=== PATIENT | male | born 1945 | race Caucasian/White ===

== ENCOUNTER 2022-02-25 09:56 | Outpatient (CLI) | payer MEDICARE, OTHER, SELFPAY | END 2022-02-25 09:57 | disposition home or self-care (01) | LOC: WOUND 09:59 | PROVIDERS: PCP Family Medicine; Visit Provider Nurse Practitioner Family | DX: L89.323 Pressure ulcer of left buttock, stage 3 (principal); R26.9 Unspecified abnormalities of gait and mobility | CPT/HCPCS: 97597; 99212 ==

== ENCOUNTER 2022-03-04 07:42 | Outpatient (CLI) | payer MEDICARE, OTHER, SELFPAY | END 2022-03-04 07:43 | disposition home or self-care (01) | LOC: WOUND 07:43 | PROVIDERS: PCP Family Medicine; Visit Provider Nurse Practitioner Family | DX: L89.323 Pressure ulcer of left buttock, stage 3 (principal) | CPT/HCPCS: 99213 ==

== ENCOUNTER 2022-03-18 10:06 | Outpatient (CLI) | payer MEDICARE, OTHER, SELFPAY | END 2022-03-18 10:07 | disposition home or self-care (01) | LOC: WOUND 10:06 | PROVIDERS: PCP Family Medicine; Visit Provider Nurse Practitioner Family | DX: L89.323 Pressure ulcer of left buttock, stage 3 (principal) | CPT/HCPCS: 99213 ==

== ENCOUNTER 2022-06-15 09:00 | Outpatient (CLI) | payer MEDICARE, OTHER, SELFPAY | END 2022-06-15 09:01 | disposition home or self-care (01) | LOC: WOUND 09:01 | PROVIDERS: PCP Family Medicine; Visit Provider Nurse Practitioner Family | DX: L89.323 Pressure ulcer of left buttock, stage 3 (principal); L89.312 Pressure ulcer of right buttock, stage 2 | CPT/HCPCS: 99214 ==

== ENCOUNTER 2022-06-22 09:24 | Outpatient (CLI) | payer MEDICARE, OTHER, SELFPAY | END 2022-06-22 09:25 | disposition home or self-care (01) | LOC: WOUND 09:24 | PROVIDERS: PCP Family Medicine; Visit Provider Nurse Practitioner Family | DX: L89.312 Pressure ulcer of right buttock, stage 2 (principal); L89.323 Pressure ulcer of left buttock, stage 3 | CPT/HCPCS: 99213 ==

== ENCOUNTER 2022-06-24 15:02 | Emergency (ER) | payer MEDICARE, OTHER, SELFPAY ==
[2022-06-24] VITALS (14 sets, daily range): BP systolic 138–153; BP diastolic 72–88; PULSE 50–79; RESP 16; TEMP 36.7; O2SAT 93–98
--- NOTE | 2022-06-24 15:31 | ED.GENADULT ---
HPI - General Adult General Time Seen by Provider: 15:31 Date Seen: 06/24/22 Chief complaint: Unspecified Complaint, Adult Stated complaint: Passing Blood,Prior Kidney Stone Probs Time Seen by Provider: 06/24/22 15:30 Source: patient, RN notes reviewed and old records reviewed Mode of arrival: ambulatory Limitations: no limitations History of Present Illness HPI narrative: Sean Recio is a very pleasant 76-year-old gentleman with a history of atrial fibrillation, aortic valve, chronic anticoagulation with an INR of 2.8 earlier today who comes to the emergency room for evaluation regarding hematuria. Patient notes that 2 weeks ago he noticed some blood in his urine and has been on and off since that time. Today however he notes that it is the most of his ever been. He describes little low long gated blood clots that he states almost looks like little warms. He notes no pain with urination and has not had any abdominal discomfort fever or chills or vomiting. Patient notes that he has had a history of kidney stones and had to undergo surgery with stent placement for those stones back in December. He states that all started when he had a pressure sore on his low back and they did a CT scan to ensure that there was no underlying abnormality. At that time they noticed that there were kidney stones in both kidneys and that he had a kidney stone stock in his right ureter. He notes that on December 10 he underwent urological surgery in which they had to break up the stone into multiple pieces. He had a stent placed at that time. He then returned 3 weeks later for further removal of the stones. He thinks that they pulled the stent at that time but is not positive. This was with Dr.Koo borrero power house control room operator in [place] at [facility]. Note that this physician may be a urologist as well. Unfortunately it was noted that the right kidney had lost significant function because of the prolonged blockage of the ureter. Patient denies any shortness of breath or new chest pain. He notes he is slightly lightheaded but does not think this is any worse than normal. He denies chest pain or vomiting. He is able to urinate without difficulty. Occasionally he has had small round clots in his urine. Related Data Home Medications Medication Instructions Recorded Confirmed ascorbic acid (vitamin C) 500 mg 500 mg PO DAILY 06/24/22 06/24/22 capsule calcium carbonate 430 mg calcium 430 mg PO DAILY 06/24/22 06/24/22 (1,000 mg) chewable tablet fluticasone propionate 50 1 spray intranasal DAILY PRN 06/24/22 06/24/22 mcg/actuation nasal spray,suspension (Flonase Allergy Relief) honey 80 % topical gel (MediHoney 1 applic topical DAILY 06/24/22 06/24/22 (honey)) hydrochlorothiazide 12.5 mg tablet 12.5 mg PO DAILY 06/24/22 06/24/22 metoprolol succinate 50 mg 100 mg PO DAILY 06/24/22 06/24/22 tablet,extended release 24 hr omega 3-vsn-mux-fish oil 60 mg-90 1 cap PO DAILY 06/24/22 06/24/22 mg-500 mg capsule (Fish Oil) potassium citrate 10 mEq (1,080 20 meq PO BID 06/24/22 06/24/22 mg) tablet,extended release tamsulosin 0.4 mg capsule 0.4 mg PO DAILY 06/24/22 06/24/22 Previous Rx's Medication Instructions Recorded warfarin 4 mg tablet 4 mg PO QDAY #90 tabs 12/25/21 omeprazole 20 mg capsule,delayed 20 mg PO QDAY #90 caps 02/21/22 release oxybutynin chloride 15 mg 30 mg PO QDAY #180 tabs 02/21/22 tablet,extended release 24 hr warfarin 2 mg tablet See Rx Instructions PO QDAY #100 02/26/22 tabs Allergies Allergy/AdvReac Type Severity Reaction Status Date / Time azithromycin AdvReac Verified 06/24/22 15:28 [From Zithromax Z-Neftaly] Review of Systems Status of ROS: Reports: 10 or more systems reviewed and unremarkable except as noted in History and below Const: Denies: fever or chills ENMT: Denies: throat pain or neck pain Cardio: Denies: chest pain, swelling of feet/ankles or shortness of breath with exertion Resp: Denies: shortness of breath or cough GI: Reports: diarrhea (Loose stools noted for months.); Denies: abdominal pain, nausea or vomiting : Reports: blood in urine; Denies: painful urination, urinary frequency or urinary urgency Musculo: Denies: back pain or neck pain PFSH PFSH Surgical History History of sinus surgery History of thumb surgery Status post aortic valve replacement Status post appendectomy Status post cholecystectomy Status post internal cardiac defibrillator procedure Status post left knee replacement Social History Smoking Status: Never smoker Second hand tobacco smoke exposure: No How often do you have a drink containing alcohol: never AUDIT-C Alcohol total score: 0 Non-prescribed substance use: denies use service: Yes Exam Narrative: Exam Narrative: Patient is alert and oriented. Able to ride good history. Face symmetrical speech is normal. Heart with regular rate and rhythm. Lungs are clear bilaterally. Abdomen is obese soft nontender. Lower extremities without edema. Const: Vital Signs, click to edit/add: Vital Signs - 24 hr 06/24/22 15:26 06/24/22 15:26 06/24/22 15:28 Temperature 98.1 F Pulse Rate 50 L 50 L Pulse Rate [Left P ulse Oximeter] 79 Respiratory Rate 16 Blood Pressure 153/73 H Blood Pressure [Ri ght Upper Arm] 150/88 H Pulse Oximetry 98 94 96 Oxygen Delivery Me thod Room Air 06/24/22 15:30 06/24/22 15:32 06/24/22 16:00 Temperature Pulse Rate 50 L 50 L 50 L Pulse Rate [Left P ulse Oximeter] Respiratory Rate Blood Pressure 148/72 H Blood Pressure [Ri ght Upper Arm] Pulse Oximetry 95 95 93 Oxygen Delivery Me thod 06/24/22 16:02 06/24/22 16:38 06/24/22 17:00 Temperature Pulse Rate 50 L 51 L 50 L Pulse Rate [Left P ulse Oximeter] Respiratory Rate Blood Pressure 143/73 H Blood Pressure [Ri ght Upper Arm] Pulse Oximetry 93 97 96 Oxygen Delivery Me thod 06/24/22 17:02 06/24/22 17:30 06/24/22 17:32 Temperature Pulse Rate 50 L 50 L 50 L Pulse Rate [Left P ulse Oximeter] Respiratory Rate 16 Blood Pressure 138/73 143/79 H Blood Pressure [Ri ght Upper Arm] Pulse Oximetry 96 94 94 Oxygen Delivery Me thod 06/24/22 17:33 06/24/22 18:00 06/24/22 18:01 Temperature Pulse Rate 50 L 50 L 50 L Pulse Rate [Left P ulse Oximeter] Respiratory Rate Blood Pressure 146/83 H Blood Pressure [Ri ght Upper Arm] Pulse Oximetry 94 95 95 Oxygen Delivery Me thod Course Course Hospital Course: At this time will check CBC, basic panel, CRP, urinalysis. Patient will also undergo noncontrast CT of the abdomen and pelvis Reevaluation(s) Reevaluation #1: Patient noted to be doing well. No complaints at this time. Vital Signs Vital signs: Initial Vital Signs Temperature 98.1 F 06/24/22 15:26 Temperature Source Temporal Artery Scan 06/24/22 15:26 Pulse Rate 50 L 06/24/22 15:26 Respiratory Rate 16 06/24/22 15:26 Blood Pressure 150/88 H 06/24/22 15:26 Blood Pressure Mean 108 06/24/22 15:26 Blood Pressure Position Sitting 06/24/22 15:26 Pulse Oximetry 98 06/24/22 15:26 Oxygen Delivery Method 06/24/22 15:26 Vital Signs Temperature 98.1 F 06/24/22 15:26 Pulse Rate 50 L 06/24/22 15:26 Respiratory Rate 16 06/24/22 15:26 Blood Pressure 150/88 H 06/24/22 15:26 Pulse Oximetry 98 06/24/22 15:26 Oxygen Delivery Method 06/24/22 15:26 Temperature 98.1 F 06/24/22 15:26 Pulse Rate 50 L 06/24/22 18:01 Respiratory Rate 16 06/24/22 17:32 Blood Pressure 146/83 H 06/24/22 18:01 Pulse Oximetry 95 06/24/22 18:01 Oxygen Delivery Method 06/24/22 15:26 Medical Decision Making MDM Narrative Medical decision making narrative: 1. Gross hematuria-patient has no evidence of UTI at this time. CT did show significant bilateral renal stones but no ureteral stones. I did speak with [place] urologist in regards to this patient. At this time given hemoglobin normal at 15.3 as well as no evidence of UTI or worsening kidney function they suggest increasing fluids and monitoring. If patient is unable to urinate, has increasing fever or pain would have them return and at that time they are suggesting placement of a [address] [place] catheter for possible irrigation. Patient did have a post void bladder scan that showed 28 mils and so obviously emptying bladder at this time. While patient here 2nd urine collections shows resolution of the blood clot seen previously. Patient is instructed to follow-up with Dr. SANDERS for further workup. 2. Renal insufficiency-creatinine is 1.6 which is improved from previous. Patient is quite happy with that. 3. Chronic anticoagulation-patient had an INR of 2.8 within the last 24 hours. We do not need to repeat that at this time. Will not change Coumadin dosing at this time. 4. Disposition-patient will be discharged home in the care of his . Will return for worsening symptoms and as needed. Medical Records Medical records reviewed: Yes I reviewed the patient's medical records Lab Data Lab results reviewed: Yes I reviewed the patient's lab results Labs: Lab Results 06/24/22 06/24/22 06/24/22 Range/Units 15:21 16:22 16:22 WBC 7.23 (4.50-11.00) K/uL RBC 4.79 (4.30-5.90) m/uL Hgb 15.3 (13.5-17.5) gm/dL Hct 46.1 (37.0-53.0) % MCV 96 (80-100) fL MCH 32 (26-34) pg MCHC 33 (32-36) gm/dL RDW Coeff of Mara 13.5 (11.5-15.5) % Plt Count 163 (140-440) K/uL Neut % (Auto) 49.9 (42.0-72.0) % Lymph % (Auto) 35.5 (20-44) % [place] % (Auto) 10.1 (0.0-11.0) % Eos % (Auto) 4.1 (0.0-7.0) % Baso % (Auto) 0.1 (0.0-3.0) % Neut # (Auto) 3.60 (1.7-7.0) K/uL Lymph # (Auto) 2.57 (0.90-2.90) K/uL [place] # (Auto) 0.70 (0.00-0.90) K/UL Eos # (Auto) 0.30 (0.00-0.50) K/uL Baso # (Auto) 0.01 (0.00-0.30) K/uL Sodium 141 (135-149) mmol/L Potassium 4.1 (3.6-5.1) mmol/L Chloride 109 (96-114) mmol/L Carbon Dioxide 29 (20-32) mmol/L BUN 26 (7-30) mg/dL Creatinine 1.6 H (0.5-1.5) mg/dL Estimated GFR 44 ml/min Glucose 91 (60-115) mg/dL Calcium 9.4 (8.4-10.6) mg/dL C-Reactive Protein < 0.5 L (0.5-1.0) mg/dL Urine Color Red A (Yellow) Urine Appearance Slightly Cloudy A (Clear) Urine pH 6.0 (5.0-8.5) Ur Specific [place] 1.025 (1.000-1.030) Urine Protein 2+ A (Negative) Urine Glucose (UA) Negative (Negative) Urine Ketones Trace A (Negative) Urine Blood 3+ A (Negative) Urine Nitrite Negative (Negative) Urine Bilirubin 1+ A (Negative) Urine Urobilinogen 1.0 (0.2-1.0) Ur Leukocyte Esterase 1+ A (Negative) Urine RBC >100 A (0-2) Urine WBC 5-10 A (0-5) Urine WBC Clumps None (None) Ur Squamous Epith Cells Few (None-Few) Urine Bacteria Few A (None) Imaging Data CT scan - abdomen: Attestation: I have reviewed the pertinent imaging results. My impression: I did not note any ureteral stones. Radiologist's impression: Motion artifact. Scattered subsegmental atelectasis. No focal consolidation. Evaluation of solid organs is limited secondary to lack of IV contrast administration. Liver: Mild geographic steatosis in the right lobe of the liver. No suspicious focal hepatic lesion. Gallbladder and bile ducts: Postcholecystectomy. Pancreas: Fatty atrophy. Spleen: Unremarkable. Adrenal glands: Unremarkable. Kidneys: Several bilateral renal calculi. Largest calculus in the left kidney is in the lower pole, measuring up to 1.0 cm, without significant hydronephrosis. Largest right renal calculus measures up to 0.5 cm in the interpolar region. There is mild right pelviectasis. Retroperitoneum: No lymphadenopathy. Bowel and mesentery: Bowel is not obstructed. Scattered sequelae of prior omental infarcts. Scattered colonic diverticulosis, without evidence of acute diverticulitis. No significant ascites. No pneumoperitoneum. Bladder: Mild circumferential bladder wall thickening, likely secondary to chronic bladder outlet obstruction. Reproductive organs: Significant prostatomegaly. Pelvic lymph nodes: No lymphadenopathy. Vessels: Scattered atherosclerotic calcifications. Abdominal wall: No acute abdominal wall abnormality. Small fat filled umbilical hernia and left inguinal hernia. Subcutaneous soft tissue tract/scarring overlying the left hip, likely secondary to recent left hip arthroplasty. Bones: Multilevel degenerative changes of the spine. No suspicious/aggressive focal osseous lesion. Left hip arthroplasty. Post median sternotomy. IMPRESSION: 1. Several bilateral renal calculi, measuring up to 1.0 cm in the left kidney and 0.5 cm in the right kidney. Mild right pelviectasis. 2. Significant prostatomegaly, correlate with serum PSA. Circumferential bladder wall thickening is likely secondary to chronic bladder outlet obstruction. Discharge Plan Discharge Clinical Impression: Hematuria Patient Disposition: Home, Self-Care Condition: Unchanged Additional Instructions: I have spoken with Urology at [facility] in [place]. They recommended this time allowing you to go home. They wanted to increase fluids to make sure that your urine stays dilute so that you do not have large clots that would block urinary outflow. At this time they do not recommend antibiotics. They do recommend that you follow-up with Dr. Sanders for a gross hematuria workup. (gross is the term used to mean a lot or visualized in medicine). Return to the emergency room if you cannot urinate, you develop a fever or chills or vomiting. Prescriptions: No Action warfarin 4 mg tablet 4 mg PO QDAY Qty: 90 3RF hydrochlorothiazide 12.5 mg tablet 12.5 mg PO DAILY potassium citrate 10 mEq (1,080 mg) tablet extended release 20 meq PO BID Label Comments: TAKE 2 TABLETS BY MOUTH TWICE DAILY WITH MEALS tamsulosin 0.4 mg capsule 0.4 mg PO DAILY Label Comments: TAKE 1 CAPSULE BY MOUTH DAILY metoprolol succinate 50 mg tablet extended release 24 hr 100 mg PO DAILY MediHoney (honey) 80 % gel 1 applic topical DAILY ascorbic acid (vitamin C) 500 mg capsule 500 mg PO DAILY omega 8-tde-nzk-fish oil [Fish Oil] 60-90-500 mg capsule 1 cap PO DAILY calcium carbonate 430 mg calcium (1,000 mg) tablet,chewable 430 mg PO DAILY fluticasone propionate [Flonase Allergy Relief] 50 mcg/actuation spray,suspension 1 spray intranasal DAILY PRN Rx Instructions: administer into each nostril oxybutynin chloride 15 mg tablet extended release 24hr 30 mg PO QDAY Qty: 180 3RF omeprazole 20 mg capsule,delayed release(DR/EC) 20 mg PO QDAY Qty: 90 3RF warfarin 2 mg tablet See Rx Instructions PO QDAY Qty: 100 3RF Rx Instructions: 6 mg QM--, and 8 mg Q --- Follow Up/Referrals: Daniel Molina MD [Primary Care Provider] - Stand Alone Forms: [facility] Info Instructions
[2022-06-24 15:42] LABS: Bilirubin Urine 1+ (Negative); Blood Urine 3+ (Negative); Glucose Urine Negative (Negative); Ketones Urine Trace (Negative); Leukocyte Esterase Urine 1+ (Negative); Nitrite Urine Negative (Negative); Protein Urine 2+ (Negative); Specific Gravity Urine 1.025 (1.000-1.030)
[2022-06-24 15:55] LABS: Appearance Urine Slightly Cloudy (Clear); Color Urine Red (Yellow)
[2022-06-24 16:02] LABS: Bacteria Urine Few; RBC Urine >100 (0-2); Squamous Epithelial Cell Urine Few (None-Few)
--- NOTE | 2022-06-24 16:03 | CRLHL7_ITS ---
For Patients: As a result of the Century Cures Act, medical imaging exams and procedure reports are released immediately into your electronic medical record. You may view this report before your referring provider. If you have questions, please contact your health care provider. INDICATION: Pain, hematuria. TECHNIQUE: CT abdomen and pelvis without contrast. COMPARISON: None available. FINDINGS: Lower chest: Motion artifact. Scattered subsegmental atelectasis. No focal consolidation. Evaluation of solid organs is limited secondary to lack of IV contrast administration. Liver: Mild geographic steatosis in the right lobe of the liver. No suspicious focal hepatic lesion. Gallbladder and bile ducts: Postcholecystectomy. Pancreas: Fatty atrophy. Spleen: Unremarkable. Adrenal glands: Unremarkable. Kidneys: Several bilateral renal calculi. Largest calculus in the left kidney is in the lower pole, measuring up to 1.0 cm, without significant hydronephrosis. Largest right renal calculus measures up to 0.5 cm in the interpolar region. There is mild right pelviectasis. Retroperitoneum: No lymphadenopathy. Bowel and mesentery: Bowel is not obstructed. Scattered sequelae of prior omental infarcts. Scattered colonic diverticulosis, without evidence of acute diverticulitis. No significant ascites. No pneumoperitoneum. Bladder: Mild circumferential bladder wall thickening, likely secondary to chronic bladder outlet obstruction. Reproductive organs: Significant prostatomegaly. Pelvic lymph nodes: No lymphadenopathy. Vessels: Scattered atherosclerotic calcifications. Abdominal wall: No acute abdominal wall abnormality. Small fat filled umbilical hernia and left inguinal hernia. Subcutaneous soft tissue tract/scarring overlying the left hip, likely secondary to recent left hip arthroplasty. Bones: Multilevel degenerative changes of the spine. No suspicious/aggressive focal osseous lesion. Left hip arthroplasty. Post median sternotomy. IMPRESSION: 1. Several bilateral renal calculi, measuring up to 1.0 cm in the left kidney and 0.5 cm in the right kidney. Mild right pelviectasis. 2. Significant prostatomegaly, correlate with serum PSA. Circumferential bladder wall thickening is likely secondary to chronic bladder outlet obstruction. Please note that all CT scans at this facility use dose modulation, iterative reconstruction, and/or weight-based dosing when appropriate to reduce radiation dose to as low as reasonably achievable. Dictated by Jose Galicia MD @ 06/24/2022 5:23:40 PM (Electronically Signed)
[2022-06-24 16:27] LABS: Basophils Absolute Auto 0.01 K/uL (0.00-0.30); Basophils Percent Auto 0.1 % (0.0-3.0); Eosinophils Percent Auto 4.1 % (0.0-7.0); Hematocrit 46.1 % (37.0-53.0); Hemoglobin* 15.3 gm/dL (13.5-17.5); Immature Granulocytes Abs Auto 0.02 K/uL (0.00-0.30); Immature Granulocytes Pct Auto 0.3 %; Lymphocytes Absolute Auto 2.57 K/uL (0.90-2.90); Lymphocytes Percent Auto 35.5 % (20-44); Mean Corpuscular HGB Conc 33 gm/dL (32-36); Mean Corpuscular Hemoglobin 32 pg (26-34); Mean Corpuscular Volume 96 fL (80-100); Monocytes Percent Auto 10.1 % (0.0-11.0); Neutrophils Percent Auto 49.9 % (42.0-72.0); Platelet Count* 163 K/uL (140-440); RDW Coefficient of Variation % 13.5 % (11.5-15.5); Red Blood Count 4.79 m/uL (4.30-5.90); White Blood Count* 7.23 K/uL (4.50-11.00)
[2022-06-24 16:28] LABS: Slide Review Reflex No
[2022-06-24 16:42] LABS: Chloride* 109 mmol/L (96-114); Potassium* 4.1 mmol/L (3.6-5.1); Sodium* 141 mmol/L (135-149)
[2022-06-24 16:45] LABS: Creatinine* 1.6 mg/dL (0.5-1.5); Estimated Glomerular Filt Rate 44 ml/min
[2022-06-24 16:46] LABS: Blood Urea Nitrogen* 26 mg/dL (7-30); Calcium* 9.4 mg/dL (8.4-10.6); Carbon Dioxide* 29 mmol/L (20-32); Glucose* 91 mg/dL (60-115)
[2022-06-24 16:49] LABS: C Reactive Protein* < 0.5 mg/dL (0.5-1.0)
--- NOTE | 2022-06-24 17:07 | ED.NURSE ---
okay with patient having water
== END 2022-06-24 18:50 | disposition home or self-care (01) ==
PROVIDERS: Emergency Provider Family Medicine; PCP Family Medicine
DX: R31.0 Gross hematuria (principal); Z79.01 Long term (current) use of anticoagulants; N28.9 Disorder of kidney and ureter, unspecified
CPT/HCPCS: 36415; 74176; 80048; 81001; 81003; 81015; 85025; 86140; 87086; 99284

== ENCOUNTER 2022-06-30 17:33 | Emergency (ER) | payer MEDICARE, OTHER, SELFPAY ==
[2022-06-30] VITALS (14 sets, daily range): BP systolic 130–147; BP diastolic 68–82; PULSE 50; RESP 16–20; TEMP 36.4; O2SAT 94–97; BMI 40.2
--- NOTE | 2022-06-30 20:23 | CRLHL7_ITS ---
For Patients: As a result of the Century Cures Act, medical imaging exams and procedure reports are released immediately into your electronic medical record. You may view this report before your referring provider. If you have questions, please contact your health care provider. INDICATION: Dizziness. TECHNIQUE: Noncontrast CT images acquired through the brain. COMPARISON: None. FINDINGS: Prominence of the ventricles and sulci compatible with [id number] diffuse cerebral volume loss. No mass effect or midline shift. The schneider-white differentiation is maintained. No acute intracranial hemorrhage or pathologic extra-axial fluid collection. Chronic appearing lacunar infarction in the deep right cerebellar hemisphere (series 3, image 21). Chronic lacunar infarctions or prominent perivascular spaces in the right basal ganglia. Scattered hypoattenuation in the supratentorial white matter, suggestive of mild chronic microvascular ischemic changes. Chronic lacunar infarctions or prominent perivascular spaces in the right basal ganglia. Intracranial atherosclerotic calcifications. The globes are symmetric. The calvarium is intact. Moderate mucosal thickening in the posterior left ethmoid air cells. Trace left mastoid fluid. IMPRESSION: 1. No acute intracranial hemorrhage or mass effect. 2. Chronic appearing lacunar infarction in the deep right cerebellar hemisphere. Chronic lacunar infarctions or prominent perivascular spaces in the right basal ganglia. Please note that all CT scans at this facility use dose modulation, iterative reconstruction, and/or weight-based dosing when appropriate to reduce radiation dose to as low as reasonably achievable. Dictated by Sanket Arzola MD @ 06/30/2022 9:41:16 PM (Electronically Signed)
[2022-06-30] MEDS: SODIUM CHLORIDE 0.9 % (FLUSH) 10 ML SYRINGE 5 ML IVF (20:51)
[2022-06-30 21:00] LABS: Troponin, Point-of-Care* 0.01 ng/ml (0.01-0.04)
[2022-06-30 21:09] LABS: Basophils Absolute Auto 0.02 K/uL (0.00-0.30); Basophils Percent Auto 0.3 % (0.0-3.0); Chloride* 106 mmol/L (96-114); Eosinophils Absolute Auto 0.34 K/uL (0.00-0.50); Eosinophils Percent Auto 4.3 % (0.0-7.0); Hematocrit 46.8 % (37.0-53.0); Hemoglobin* 15.5 gm/dL (13.5-17.5); Immature Granulocytes Abs Auto 0.05 K/uL (0.00-0.30); Immature Granulocytes Pct Auto 0.6 %; Lymphocytes Absolute Auto 2.83 K/uL (0.90-2.90); Lymphocytes Percent Auto 36.1 % (20-44); Mean Corpuscular HGB Conc 33 gm/dL (32-36); Mean Corpuscular Hemoglobin 32 pg (26-34); Mean Corpuscular Volume 97 fL (80-100); Monocytes Percent Auto 11.4 % (0.0-11.0); Neutrophils Percent Auto 47.3 % (42.0-72.0); Platelet Count* 166 K/uL (140-440); RDW Coefficient of Variation % 13.9 % (11.5-15.5); Red Blood Count 4.85 m/uL (4.30-5.90); White Blood Count* 7.83 K/uL (4.50-11.00)
[2022-06-30 21:10] LABS: Potassium* 4.5 mmol/L (3.6-5.1); Slide Review Reflex No; Sodium* 138 mmol/L (135-149)
[2022-06-30 21:11] LABS: INR 2.41 (0.91-1.10); Prothrombin Time 27.5 Seconds
[2022-06-30 21:12] LABS: Creatinine* 1.5 mg/dL (0.5-1.5); Est. Creatinine Clearance* 42.58; Estimated Glomerular Filt Rate 48 ml/min
[2022-06-30 21:13] LABS: Blood Urea Nitrogen* 26 mg/dL (7-30); Calcium* 9.2 mg/dL (8.4-10.6); Carbon Dioxide* 28 mmol/L (20-32); Glucose* 85 mg/dL (60-115)
[2022-06-30 21:25] LABS: Ethanol* < 0.01 % (0.01-0.03)
[2022-06-30 21:28] LABS: PCR FLU A Negative PCR FLU A (Negative); PCR FLU B Negative PCR FLU B (Negative); PCR RSV Negative PCR RSV (Negative)
[2022-06-30 21:43] LABS: SARS PCR* Negative SARS-CoV-2 (Negative)
[2022-06-30 22:19] LABS: Appearance Urine Clear (Clear); Bilirubin Urine Negative (Negative); Blood Urine 3+ (Negative); Color Urine Yellow (Yellow); Glucose Urine Negative (Negative); Ketones Urine Negative (Negative); Leukocyte Esterase Urine 1+ (Negative); Nitrite Urine Negative (Negative); Protein Urine Negative (Negative); Specific Gravity Urine 1.015 (1.000-1.030); Urobilinogen Urine 0.2 (0.2-1.0); pH Urine 6.5 (5.0-8.5)
--- NOTE | 2022-07-01 00:29 | ED.GENADULT ---
HPI - General Adult General Date Seen: 06/30/22 Chief complaint: High Blood Pressure Stated complaint: BP 209/99 Dizzy Time Seen by Provider: 06/30/22 19:52 Source: patient and family Mode of arrival: ambulatory Limitations: no limitations History of Present Illness HPI narrative: patient is a very nice gentleman who presents here with significant other, for evaluation of feeling that he is unsteady, and the room almost spinning around. This occurred earlier tonight, at approximately 4:00 a.m. when he got up when he is walking around with his walker he knew the was almost leaning in listing to 1 side. This also was associated with some ringing in his ears. Denies a severe headache associated with this he did not fall, noted the double vision and no weakness in any the extremities noted. Denies any chest pain shortness of breath or feeling that his heart was racing. He had been suffering from some hematuria on and off in kidney stones, and wondered if was somehow related to this. Did not take any medications and presented here to the hospital for further evaluation. Related Data Home Medications Medication Instructions Recorded Confirmed ascorbic acid (vitamin C) 500 mg 500 mg PO DAILY 06/24/22 06/24/22 capsule calcium carbonate 430 mg calcium 430 mg PO DAILY 06/24/22 06/24/22 (1,000 mg) chewable tablet fluticasone propionate 50 1 spray intranasal DAILY PRN 06/24/22 06/24/22 mcg/actuation nasal spray,suspension (Flonase Allergy Relief) honey 80 % topical gel (MediHoney 1 applic topical DAILY 06/24/22 06/24/22 (honey)) hydrochlorothiazide 12.5 mg tablet 12.5 mg PO DAILY 06/24/22 06/24/22 metoprolol succinate 50 mg 100 mg PO DAILY 06/24/22 06/24/22 tablet,extended release 24 hr omega 3-twl-tny-fish oil 60 mg-90 1 cap PO DAILY 06/24/22 06/24/22 mg-500 mg capsule (Fish Oil) potassium citrate 10 mEq (1,080 20 meq PO BID 06/24/22 06/24/22 mg) tablet,extended release tamsulosin 0.4 mg capsule 0.4 mg PO DAILY 06/24/22 06/24/22 Previous Rx's Medication Instructions Recorded warfarin 4 mg tablet 4 mg PO QDAY #90 tabs 12/25/21 omeprazole 20 mg capsule,delayed 20 mg PO QDAY #90 caps 02/21/22 release oxybutynin chloride 15 mg 30 mg PO QDAY #180 tabs 02/21/22 tablet,extended release 24 hr warfarin 2 mg tablet See Rx Instructions PO QDAY #100 02/26/22 tabs Allergies Allergy/AdvReac Type Severity Reaction Status Date / Time azithromycin AdvReac Verified 06/24/22 15:28 [From Zithromax Z-Neftaly] Review of Systems Status of ROS: Reports: 10 or more systems reviewed and unremarkable except as noted in History and below [facility] Surgical History History of sinus surgery History of thumb surgery Status post aortic valve replacement Status post appendectomy Status post cholecystectomy Status post internal cardiac defibrillator procedure Status post left knee replacement Social History Smoking Status: Never smoker Do you use any of these nicotine containing products: None Second hand tobacco smoke exposure: No How often do you have a drink containing alcohol: never AUDIT-C Alcohol total score: 0 Non-prescribed substance use: denies use service: Yes Exam Narrative: Exam Narrative: Patient is speaking normally, no problem with slurring words, oriented x3. Head eyes ears nose and throat exam show equal pupils, no scleral icterus, extraocular muscles are normal, no facial droop, speech is normal, trachea normal and midline. There is some horizontal nystagmus bilaterally. With 2 beats. TMs bilaterally are normal with approximately 30% occlusion with cerumen. Cranial nerves are otherwise normal and he is able to whistle. Thyroid normal midline palpable not enlarged. Chest shows symmetrical rise bilaterally, normal auscultation with no wheezes, no increased work of breathing, no overt bruising or lesions seen, no tenderness is noted on auscultation. Heart sounds normal with no S3-S4 no murmurs clicks or gallops. Abdomen shows no obvious masses or hepatosplenomegaly, no organomegaly, bowel sounds are normal in all quadrants. No tenderness is noted also in all quadrants. Upper and lower extremities show normal power In his upper extremities, and right lower extremity. He has weakness in his left lower extremity, in hip flexion, but this is from his previous hip replacement he tells me he has not yet recovered., normal range of motion, pulses are normal, sensations normal, fine motor movements are normal, pelvis is stable to rocking. Cervical spine shows normal range of motion, and palpably not tender. Thoracic spine shows normal range of motion, and palpably not tender, lumbar spine shows no tenderness to palpation percussion and is otherwise normal range of motion. Skin shows no rashes, petechiae or eccymosis. Const: Vital Signs, click to edit/add: Vital Signs - 24 hr 06/30/22 18:34 06/30/22 20:14 06/30/22 20:13 Temperature 97.6 F Pulse Rate 50 L Pulse Rate [Pulse Oximeter] 50 L 50 L Respiratory Rate 20 16 Blood Pressure Blood Pressure [Ri ght Upper Arm] 130/73 147/81 H Pulse Oximetry 96 94 94 Oxygen Delivery Me thod Room Air Room Air 06/30/22 20:15 06/30/22 20:30 06/30/22 20:45 Temperature Pulse Rate 50 L 50 L 50 L Pulse Rate [Pulse Oximeter] Respiratory Rate Blood Pressure 137/68 Blood Pressure [Ri ght Upper Arm] Pulse Oximetry 96 97 96 Oxygen Delivery Me thod 06/30/22 20:46 06/30/22 21:05 06/30/22 21:15 Temperature Pulse Rate 50 L 50 L 50 L Pulse Rate [Pulse Oximeter] Respiratory Rate Blood Pressure Blood Pressure [Ri ght Upper Arm] Pulse Oximetry 96 97 95 Oxygen Delivery Me thod 06/30/22 21:29 06/30/22 21:30 06/30/22 21:45 Temperature Pulse Rate 50 L 50 L 50 L Pulse Rate [Pulse Oximeter] Respiratory Rate Blood Pressure 143/82 H Blood Pressure [Ri ght Upper Arm] Pulse Oximetry 97 97 94 Oxygen Delivery Me thod 06/30/22 22:00 06/30/22 22:42 Temperature Pulse Rate 50 L Pulse Rate [Pulse Oximeter] 50 L Respiratory Rate 16 Blood Pressure Blood Pressure [Ri ght Upper Arm] 141/78 H Pulse Oximetry 94 97 Oxygen Delivery Me thod Room Air Documenting provider has reviewed patient's vital signs: yes Course Course Hospital Course: I spoke to the patient is symptoms are most consistent with a peripheral vertigo, his head CT is negative, he is already on anticoagulation for heart valve. He is not a candidate for tPA even if this was a stroke and I do not think this is. I do recommend that he take his nighttime dose of Benadryl, which he takes for sleep aid, we will try some prednisone which often helps this sort of variant. With the ringing in his ears. Avoidance of alcohol, and we went over some warning signs were he should re-presented. I did discuss with him the old stroke as seen on CT, Vital Signs Vital signs: Initial Vital Signs Temperature 97.6 F 06/30/22 18:34 Temperature Source Temporal Artery Scan 06/30/22 18:34 Pulse Rate 50 L 06/30/22 18:34 Respiratory Rate 20 06/30/22 18:34 Blood Pressure 130/73 06/30/22 18:34 Blood Pressure Mean 92 06/30/22 18:34 Blood Pressure Position Supine 06/30/22 18:34 Pulse Oximetry 96 06/30/22 18:34 Oxygen Delivery Method 06/30/22 18:34 Vital Signs Temperature 97.6 F 06/30/22 18:34 Pulse Rate 50 L 06/30/22 18:34 Respiratory Rate 20 06/30/22 18:34 Blood Pressure 130/73 06/30/22 18:34 Pulse Oximetry 96 06/30/22 18:34 Oxygen Delivery Method 06/30/22 18:34 Temperature 97.6 F 06/30/22 18:34 Pulse Rate 50 L 06/30/22 22:42 Respiratory Rate 16 06/30/22 22:42 Blood Pressure 141/78 H 06/30/22 22:42 Pulse Oximetry 97 06/30/22 22:42 Oxygen Delivery Method 06/30/22 22:42 Medical Decision Making MDM Narrative Medical decision making narrative: Life-threatening differential diagnosis considered include, CVA, other differential diagnosis include BPPV, labyrinthitis, Meniere's disease, vestibular neuronitis, migraine, multiple sclerosis, otitis media, viral syndrome as well as other etiologies Medical Records Medical records reviewed: Yes I reviewed the patient's medical records Lab Data Lab results reviewed: Yes I reviewed the patient's lab results Labs: Lab Results 06/30/22 06/30/22 06/30/22 Range/Units 20:25 20:25 20:40 WBC 7.83 (4.50-11.00) K/uL RBC 4.85 (4.30-5.90) m/uL Hgb 15.5 (13.5-17.5) gm/dL Hct 46.8 (37.0-53.0) % MCV 97 (80-100) fL MCH 32 (26-34) pg MCHC 33 (32-36) gm/dL RDW Coeff of Mara 13.9 (11.5-15.5) % Plt Count 166 (140-440) K/uL Neut % (Auto) 47.3 (42.0-72.0) % Lymph % (Auto) 36.1 (20-44) % [place] % (Auto) 11.4 H (0.0-11.0) % Eos % (Auto) 4.3 (0.0-7.0) % Baso % (Auto) 0.3 (0.0-3.0) % Neut # (Auto) 3.70 (1.7-7.0) K/uL Lymph # (Auto) 2.83 (0.90-2.90) K/uL [place] # (Auto) 0.90 (0.00-0.90) K/UL Eos # (Auto) 0.34 (0.00-0.50) K/uL Baso # (Auto) 0.02 (0.00-0.30) K/uL INR (0.91-1.10) Sodium (135-149) mmol/L Potassium (3.6-5.1) mmol/L Chloride (96-114) mmol/L Carbon Dioxide (20-32) mmol/L BUN (7-30) mg/dL Creatinine (0.5-1.5) mg/dL Estimated Creat Clear Estimated GFR ml/min Glucose (60-115) mg/dL Calcium (8.4-10.6) mg/dL Urine Color Yellow (Yellow) Urine Appearance Clear (Clear) Urine pH 6.5 (5.0-8.5) Ur Specific [place] 1.015 (1.000-1.030) Urine Protein Negative (Negative) Urine Glucose (UA) Negative (Negative) Urine Ketones Negative (Negative) Urine Blood 3+ A (Negative) Urine Nitrite Negative (Negative) Urine Bilirubin Negative (Negative) Urine Urobilinogen 0.2 (0.2-1.0) Ur Leukocyte Esterase 1+ A (Negative) Urine RBC 5-10 A (0-2) Urine WBC 5-10 A (0-5) Ur Squamous Epith Cells None (None-Few) Urine Bacteria None (None) Ethyl Alcohol (0.01-0.03) % SARS-CoV-2 (PCR) (Negative) Influenza Type A (PCR) (Negative) Influenza Type B (PCR) (Negative) RSV (PCR) (Negative) POC Troponin I 0.01 (0.01-0.04) ng/ml 06/30/22 06/30/22 06/30/22 Range/Units 20:40 20:40 20:40 WBC (4.50-11.00) K/uL RBC (4.30-5.90) m/uL Hgb (13.5-17.5) gm/dL Hct (37.0-53.0) % MCV (80-100) fL MCH (26-34) pg MCHC (32-36) gm/dL RDW Coeff of Mara (11.5-15.5) % Plt Count (140-440) K/uL Neut % (Auto) (42.0-72.0) % Lymph % (Auto) (20-44) % [place] % (Auto) (0.0-11.0) % Eos % (Auto) (0.0-7.0) % Baso % (Auto) (0.0-3.0) % Neut # (Auto) (1.7-7.0) K/uL Lymph # (Auto) (0.90-2.90) K/uL [place] # (Auto) (0.00-0.90) K/UL Eos # (Auto) (0.00-0.50) K/uL Baso # (Auto) (0.00-0.30) K/uL INR 2.41 H (0.91-1.10) Sodium 138 (135-149) mmol/L Potassium 4.5 (3.6-5.1) mmol/L Chloride 106 (96-114) mmol/L Carbon Dioxide 28 (20-32) mmol/L BUN 26 (7-30) mg/dL Creatinine 1.5 (0.5-1.5) mg/dL Estimated Creat Clear 42.58 Estimated GFR 48 ml/min Glucose 85 (60-115) mg/dL Calcium 9.2 (8.4-10.6) mg/dL Urine Color (Yellow) Urine Appearance (Clear) Urine pH (5.0-8.5) Ur Specific [place] (1.000-1.030) Urine Protein (Negative) Urine Glucose (UA) (Negative) Urine Ketones (Negative) Urine Blood (Negative) Urine Nitrite (Negative) Urine Bilirubin (Negative) Urine Urobilinogen (0.2-1.0) Ur Leukocyte Esterase (Negative) Urine RBC (0-2) Urine WBC (0-5) Ur Squamous Epith Cells (None-Few) Urine Bacteria (None) Ethyl Alcohol < 0.01 L (0.01-0.03) % SARS-CoV-2 (PCR) Negative SARS-CoV-2 (Negative) Influenza Type A (PCR) Negative PCR FLU A (Negative) Influenza Type B (PCR) Negative PCR FLU B (Negative) RSV (PCR) Negative PCR RSV (Negative) POC Troponin I (0.01-0.04) ng/ml Imaging Data CT scan - head: Attestation: I have reviewed the pertinent imaging results. My impression: no acute findings Radiologist's impression: Patient: [facility] [place] Facility:?[facility] Patient ID:?[id number] Site Patient ID:?[id number]. Site :?[id number] Study:?CT Head W/O-06/30/2022 9:05:10 PM Ordering Physician:Aroldo Carter Final Report: INDICATION: Dizziness. TECHNIQUE: Noncontrast CT images acquired through the brain. COMPARISON: None. FINDINGS: Prominence of the ventricles and sulci compatible with [id number] diffuse cerebral volume loss. No mass effect or midline shift. The schneider-white differentiation is maintained. No acute intracranial hemorrhage or pathologic extra-axial fluid collection. Chronic appearing lacunar infarction in the deep right cerebellar hemisphere (series 3, image 21). Chronic lacunar infarctions or prominent perivascular spaces in the right basal ganglia. Scattered hypoattenuation in the supratentorial white matter, suggestive of mild chronic microvascular ischemic changes. Chronic lacunar infarctions or prominent perivascular spaces in the right basal ganglia. Intracranial atherosclerotic calcifications. The globes are symmetric. The calvarium is intact. Moderate mucosal thickening in the posterior left ethmoid air cells. Trace left mastoid fluid. IMPRESSION: 1. No acute intracranial hemorrhage or mass effect. 2. Chronic appearing lacunar infarction in the deep right cerebellar hemisphere. Chronic lacunar infarctions or prominent perivascular spaces in the right basal ganglia. Please note that all CT scans at this facility use dose modulation, iterative reconstruction, and/or weight-based dosing when appropriate to reduce radiation dose to as low as reasonably achievable. Dictated by Sanket Arzola MD @ 06/30/2022 9:41:16 PM (Electronic Signature) ECG Data Attestation: I personally reviewed and interpreted this ECG as follows: Interpretation: paced rhythm, wide QRS consistent with this. Discharge Plan Discharge Clinical Impression: Vertigo Patient Disposition: Home w/ Parent or Adult Condition: Stable Instructions: Vertigo (DC), Dizziness (ED) Additional Instructions: home rest take your Benadryl, Tylenol p.m. we will try some prednisone, to see we can help this vertigo. Please be careful, as falling on the Coumadin can be very problematic. Slow to arise, and avoidance of alcohol is suggested. Prescriptions: No Action warfarin 4 mg tablet 4 mg PO QDAY Qty: 90 3RF hydrochlorothiazide 12.5 mg tablet 12.5 mg PO DAILY potassium citrate 10 mEq (1,080 mg) tablet extended release 20 meq PO BID Label Comments: TAKE 2 TABLETS BY MOUTH TWICE DAILY WITH MEALS tamsulosin 0.4 mg capsule 0.4 mg PO DAILY Label Comments: TAKE 1 CAPSULE BY MOUTH DAILY metoprolol succinate 50 mg tablet extended release 24 hr 100 mg PO DAILY MediHoney (honey) 80 % gel 1 applic topical DAILY ascorbic acid (vitamin C) 500 mg capsule 500 mg PO DAILY omega 7-bdj-uvv-fish oil [Fish Oil] 60-90-500 mg capsule 1 cap PO DAILY calcium carbonate 430 mg calcium (1,000 mg) tablet,chewable 430 mg PO DAILY fluticasone propionate [Flonase Allergy Relief] 50 mcg/actuation spray,suspension 1 spray intranasal DAILY PRN Rx Instructions: administer into each nostril oxybutynin chloride 15 mg tablet extended release 24hr 30 mg PO QDAY Qty: 180 3RF omeprazole 20 mg capsule,delayed release(DR/EC) 20 mg PO QDAY Qty: 90 3RF warfarin 2 mg tablet See Rx Instructions PO QDAY Qty: 100 3RF Rx Instructions: 6 mg QM-W-F, and 8 mg Q T-TH-S-S Follow Up/Referrals: Daniel Molina MD [Primary Care Provider] - Stand Alone Forms: [employer] Info Instructions
== END 2022-06-30 23:03 | disposition home or self-care (01) ==
PROVIDERS: Emergency Provider Family Medicine; PCP Family Medicine
DX: R42 Dizziness and giddiness (principal)
CPT/HCPCS: 36415; 70450; 80048; 81001; 82077; 84484; 85025; 85610; 87086; 87502; 87634; 87635; 93005; 99284; 99285

== ENCOUNTER 2022-07-02 08:25 | Emergency (ER) | payer MEDICARE, OTHER, SELFPAY ==
[2022-07-02 08:30] VITALS: BP 145/71; PULSE 56; TEMP 37; O2SAT 95
[2022-07-02 08:50] VITALS: BP 150/80
--- NOTE | 2022-07-02 09:01 | ED.GENADULT ---
HPI - General Adult General Chief complaint: High Blood Pressure Stated complaint: Elevated BP Time Seen by Provider: 07/02/22 08:28 History of Present Illness HPI narrative: This 76-year-old male comes in with concern about his blood pressure. He states that he woke up this morning and put on his blood pressure cuff while he was yet in his recliner and had a reading of around 230 for systolic value. He does take blood pressure medicines. This was before his medicines were taken. When he arrived here in triage his personal cough had a blood pressure reading of around 200 and the triage reading from our machine was 150. After arrival here he is showing blood pressure readings in the 140-150 range. He has not taken his blood pressure medicines this morning. He does have a cardiac history with open heart surgery. He does not describe any chest pain, lightheadedness, shortness of breath, nausea, vomiting, or diaphoresis. He was here a couple days ago for vertigo symptoms which have since resolved. Related Data Home Medications Medication Instructions Recorded Confirmed ascorbic acid (vitamin C) 500 mg 500 mg PO DAILY 06/24/22 06/24/22 capsule calcium carbonate 430 mg calcium 430 mg PO DAILY 06/24/22 06/24/22 (1,000 mg) chewable tablet fluticasone propionate 50 1 spray intranasal DAILY PRN 06/24/22 06/24/22 mcg/actuation nasal spray,suspension (Flonase Allergy Relief) honey 80 % topical gel (MediHoney 1 applic topical DAILY 06/24/22 06/24/22 (honey)) hydrochlorothiazide 12.5 mg tablet 12.5 mg PO DAILY 06/24/22 06/24/22 metoprolol succinate 50 mg 100 mg PO DAILY 06/24/22 06/24/22 tablet,extended release 24 hr omega 4-anf-eqi-fish oil 60 mg-90 1 cap PO DAILY 06/24/22 06/24/22 mg-500 mg capsule (Fish Oil) potassium citrate 10 mEq (1,080 20 meq PO BID 06/24/22 06/24/22 mg) tablet,extended release tamsulosin 0.4 mg capsule 0.4 mg PO DAILY 06/24/22 06/24/22 Previous Rx's Medication Instructions Recorded warfarin 4 mg tablet 4 mg PO QDAY #90 tabs 12/25/21 omeprazole 20 mg capsule,delayed 20 mg PO QDAY #90 caps 02/21/22 release oxybutynin chloride 15 mg 30 mg PO QDAY #180 tabs 02/21/22 tablet,extended release 24 hr warfarin 2 mg tablet See Rx Instructions PO QDAY #100 02/26/22 tabs Allergies Allergy/AdvReac Type Severity Reaction Status Date / Time azithromycin AdvReac Verified 06/24/22 15:28 [From Zithromax Z-Neftaly] Review of Systems Status of ROS: Reports: 10 or more systems reviewed and unremarkable except as noted in History and below Narrative: Constitutional: No fevers, no weight gain or loss. Eyes: No discharge. No vision changes. HENT: No congestion, no sore throat, no ear pain. Cardiovascular: No chest pain, no palpitations. Respiratory: No shortness of breath, no wheezes, no cough. Gastrointestinal: No abdominal pain, no vomiting, no diarrhea. Genitourinary: No dysuria, no hematuria. Musculoskeletal: Normal range of motion. Skin: No rashes, no pruritis. Neurological: No dizziness, weakness, sensory change, speech change. Endo/Heme/Allergies: No bruising or bleeding. No polydipsia. Pysch: no suicidality, no anxiety, no insomnia. All other systems reviewed and are negative. [facility] History History of sinus surgery History of thumb surgery Status post aortic valve replacement Status post appendectomy Status post cholecystectomy Status post internal cardiac defibrillator procedure Status post left knee replacement Social History Smoking Status: Never smoker Do you use any of these nicotine containing products: None Second hand tobacco smoke exposure: No How often do you have a drink containing alcohol: never AUDIT-C Alcohol total score: 0 Non-prescribed substance use: denies use service: Yes Exam Narrative: Exam Narrative: Constitutional: Well-developed, well-nourished, no acute distress. HEENT: Normocephalic, atraumatic. Neck: Normal range of motion. Nontender. Supple. Heart: Regular. No murmurs. Normal rate. Intact distal pulses. Lungs: Clear to auscultation. No chest discomfort. No wheezes, rhonchi, or rales. Abdomen: Normal bowel sounds. Nontender. No rebound tenderness. Genitalia: Deferred. Back: No midline tenderness. Normal range of motion. Extremities: Normal range of motion. No injury. Skin: Intact. No rash. Warm. No erythema or pallor. Neurologic: No altered sensation. No weakness. Alert and oriented. Psychiatric: No suicidality. No anxiety or depression. No insomnia. Nursing notes and vitals signs are reviewed. Const: Vital Signs, click to edit/add: Vital Signs - 24 hr 07/02/22 08:30 07/02/22 08:50 07/02/22 09:30 Temperature 98.6 F Pulse Rate [Pulse Oximeter] 56 L Blood Pressure [Ri ght Upper Arm] 145/71 H 150/80 H 153/63 H Pulse Oximetry 95 Oxygen Delivery Me thod Room Air Course Vital Signs Vital signs: Initial Vital Signs Temperature 98.6 F 07/02/22 08:30 Temperature Source Temporal Artery Scan 07/02/22 08:30 Pulse Rate 56 L 07/02/22 08:30 Blood Pressure 145/71 H 07/02/22 08:30 Blood Pressure Mean 95 07/02/22 08:30 Blood Pressure Position Sitting 07/02/22 08:30 Pulse Oximetry 95 07/02/22 08:30 Oxygen Delivery Method 07/02/22 08:30 Vital Signs Temperature 98.6 F 07/02/22 08:30 Pulse Rate 56 L 07/02/22 08:30 Blood Pressure 145/71 H 07/02/22 08:30 Pulse Oximetry 95 07/02/22 08:30 Oxygen Delivery Method 07/02/22 08:30 Temperature 98.6 F 07/02/22 08:30 Pulse Rate 56 L 07/02/22 08:30 Blood Pressure 153/63 H 07/02/22 09:30 Pulse Oximetry 95 07/02/22 08:30 Oxygen Delivery Method 07/02/22 08:30 Medical Decision Making MDM Narrative Medical decision making narrative: This patient comes in with concern about elevated blood pressure reading. He is using his own cuff at home that is approaching 20 years old. This is reading 50-70 points higher than the readings we have received here. Additionally he has not taken his blood pressure medicines yet today so his expect his blood pressure to be a bit elevated. Readings here are returning for systolic value of around 140 or 150. I did check labs an EKG and these returned with reassuring findings. I did describe criteria that are involved in diagnosis thing in managing blood pressure. I advised him to follow-up with his primary physician for further management as needed. He should continue his current plan as this seems to be appropriate for him. Lab Data Labs: Lab Results 07/02/22 07/02/22 07/02/22 Range/Units 09:01 09:24 09:24 WBC 9.12 (4.50-11.00) K/uL RBC 4.93 (4.30-5.90) m/uL Hgb 15.6 (13.5-17.5) gm/dL Hct 47.4 (37.0-53.0) % MCV 96 (80-100) fL MCH 32 (26-34) pg MCHC 33 (32-36) gm/dL RDW Coeff of Mara 13.9 (11.5-15.5) % Plt Count 179 (140-440) K/uL Neut % (Auto) 84.6 H (42.0-72.0) % Lymph % (Auto) 11.8 L (20-44) % [place] % (Auto) 3.5 (0.0-11.0) % Eos % (Auto) 0.0 (0.0-7.0) % Baso % (Auto) 0.0 (0.0-3.0) % Neut # (Auto) 7.70 H (1.7-7.0) K/uL Lymph # (Auto) 1.10 (0.90-2.90) K/uL [place] # (Auto) 0.30 (0.00-0.90) K/UL Eos # (Auto) 0.00 (0.00-0.50) K/uL Baso # (Auto) 0.00 (0.00-0.30) K/uL Sodium 138 (135-149) mmol/L Potassium 4.3 (3.6-5.1) mmol/L Chloride 109 (96-114) mmol/L Carbon Dioxide 24 (20-32) mmol/L BUN 26 (7-30) mg/dL Creatinine 1.3 (0.5-1.5) mg/dL Estimated GFR 57 ml/min Glucose 174 H (60-115) mg/dL Calcium 9.8 (8.4-10.6) mg/dL POC Troponin I 0.01 (0.01-0.04) ng/ml ECG Data Attestation: I personally reviewed and interpreted this ECG as follows: Interpretation: Ventricular paced rhythm. Rate is 50 beats per minute. There are no specific ST or T-wave abnormalities. Discharge Plan Discharge Clinical Impression: Elevated blood pressure reading Patient Disposition: Home, Self-Care Condition: Stable Additional Instructions: Continue current plans. Follow up with physicians as scheduled. Check with primary physician for ongoing management of blood pressure medications. Return if worsening. Prescriptions: No Action warfarin 4 mg tablet 4 mg PO QDAY Qty: 90 3RF hydrochlorothiazide 12.5 mg tablet 12.5 mg PO DAILY potassium citrate 10 mEq (1,080 mg) tablet extended release 20 meq PO BID Label Comments: TAKE 2 TABLETS BY MOUTH TWICE DAILY WITH MEALS tamsulosin 0.4 mg capsule 0.4 mg PO DAILY Label Comments: TAKE 1 CAPSULE BY MOUTH DAILY metoprolol succinate 50 mg tablet extended release 24 hr 100 mg PO DAILY MediHoney (honey) 80 % gel 1 applic topical DAILY ascorbic acid (vitamin C) 500 mg capsule 500 mg PO DAILY omega 0-cdo-vjz-fish oil [Fish Oil] 60-90-500 mg capsule 1 cap PO DAILY calcium carbonate 430 mg calcium (1,000 mg) tablet,chewable 430 mg PO DAILY fluticasone propionate [Flonase Allergy Relief] 50 mcg/actuation spray,suspension 1 spray intranasal DAILY PRN Rx Instructions: administer into each nostril oxybutynin chloride 15 mg tablet extended release 24hr 30 mg PO QDAY Qty: 180 3RF omeprazole 20 mg capsule,delayed release(DR/EC) 20 mg PO QDAY Qty: 90 3RF warfarin 2 mg tablet See Rx Instructions PO QDAY Qty: 100 3RF Rx Instructions: 6 mg QM-W-, and 8 mg Q --S- Follow Up/Referrals: Daniel Molina MD [Primary Care Provider] - Stand Alone Forms: Daily[employer] Info Instructions
[2022-07-02 09:30] VITALS: BP 153/63
[2022-07-02 09:35] LABS: Hematocrit 47.4 % (37.0-53.0); Hemoglobin* 15.6 gm/dL (13.5-17.5); Immature Granulocytes Abs Auto 0.01 K/uL (0.00-0.30); Immature Granulocytes Pct Auto 0.1 %; Lymphocytes Percent Auto 11.8 % (20-44); Mean Corpuscular HGB Conc 33 gm/dL (32-36); Mean Corpuscular Hemoglobin 32 pg (26-34); Mean Corpuscular Volume 96 fL (80-100); Monocytes Percent Auto 3.5 % (0.0-11.0); Neutrophils Percent Auto 84.6 % (42.0-72.0); Platelet Count* 179 K/uL (140-440); RDW Coefficient of Variation % 13.9 % (11.5-15.5); Red Blood Count 4.93 m/uL (4.30-5.90); White Blood Count* 9.12 K/uL (4.50-11.00)
[2022-07-02 09:45] LABS: Slide Review Reflex No
[2022-07-02 09:54] LABS: Troponin, Point-of-Care* 0.01 ng/ml (0.01-0.04)
[2022-07-02 09:58] LABS: Chloride* 109 mmol/L (96-114); Potassium* 4.3 mmol/L (3.6-5.1); Sodium* 138 mmol/L (135-149)
[2022-07-02 10:00] LABS: Creatinine* 1.3 mg/dL (0.5-1.5); Estimated Glomerular Filt Rate 57 ml/min
[2022-07-02 10:01] LABS: Blood Urea Nitrogen* 26 mg/dL (7-30); Calcium* 9.8 mg/dL (8.4-10.6); Carbon Dioxide* 24 mmol/L (20-32); Glucose* 174 mg/dL (60-115)
[2022-07-02 10:33] VITALS: PULSE 52; O2SAT 96
== END 2022-07-02 10:39 | disposition home or self-care (01) ==
PROVIDERS: Emergency Provider Emergency Medicine Emergency Medical Services; PCP Family Medicine
DX: R03.0 Elevated blood-pressure reading, without diagnosis of hypertension (principal)
CPT/HCPCS: 36415; 80048; 84484; 85025; 93005; 99284

== ENCOUNTER 2022-11-23 08:39 | Emergency (ER) | payer MEDICARE, OTHER, SELFPAY ==
[2022-11-23 08:44] VITALS: BP 125/68; PULSE 51; RESP 18; TEMP 36.6; O2SAT 92; BMI 41.0
--- NOTE | 2022-11-23 08:57 | ED.MALEGU ---
HPI - Male Genitourinary General Time Seen by Provider: 08:57 Date Seen: 11/23/22 Chief complaint: Urogenital Problems, Male Stated complaint: blood in urine Time Seen by Provider: 11/23/22 08:56 Source: patient, RN notes reviewed and old records reviewed Mode of arrival: ambulatory Limitations: no limitations History of Present Illness HPI Narrative: Sean is a 77-year-old male coming in with complaints of hematuria stemming back from a kidney stone surgery 12/24/2021. He had a 1 cm kidney stone obstructing in the ureter, states that they had to stop the surgery after about 3 hours. He had a stent placed, working with laser to break up the 1 cm stone. He had to wait 3 weeks and then went back to complete the surgery. He states he has heart issues and he became unstable during the 1st surgery. He reports that he has had intermittent hematuria since the surgery. He states he has been to urgent care twice, [facility], here. He states everyone else is always concerned about the level of hematuria but when he gets back to his urologist, he states he rylan borrero just tells him he needs to learn to live with it. He is on anticoagulation with Coumadin, his INR on of last week was 1.9, today is Tuesday. He did increase his Coumadin dosing by 1 mg daily. He has been seen urology at [place]. He is scheduled for blood work, urinalysis and CT imaging this Tuesday for further evaluation and management of his hematuria. He states this morning he got up at about 4:00 a.m. to urinate, the urine was like ksenia blood, that started to happen every 1/2 hour until just before coming here, seems to be clearing. He will passed clots but is not having any inability to urinate. He felt weak this morning. He contacted someone and they advised him to be seen. Have reviewed with patient and his hematuria workup. If he has completed a full formal workup with Urology, his urologist maybe correct that there may be nothing to do. Also reviewed that we worry when the hematuria is causing obstructive symptoms, specifically the inability to urinate. In those situations we would start CBI. I do think we should see where his hemoglobin is, check his INR. We will obtain urinalysis. Does not sound like there is any infective symptomatology with this. He endorses intermittent hematuria since that surgery. In review of his records, did have evaluation in the ER here on 06/24/[address] Did have CT which showed kidney stones, no evidence of infection. Patient was discharged to home, [facility] urology was consulted. Related Data Home Medications Medication Instructions Recorded Confirmed ascorbic acid (vitamin C) 500 mg 500 mg PO DAILY 06/24/22 07/14/22 capsule calcium carbonate 430 mg calcium 430 mg PO DAILY 06/24/22 07/14/22 (1,000 mg) chewable tablet fluticasone propionate 50 1 spray intranasal DAILY PRN 06/24/22 07/14/22 mcg/actuation nasal spray,suspension (Flonase Allergy Relief) honey 80 % topical gel (MediHoney 1 applic topical DAILY 06/24/22 07/14/22 (honey)) hydrochlorothiazide 12.5 mg tablet 12.5 mg PO DAILY 06/24/22 07/14/22 metoprolol succinate 50 mg 100 mg PO DAILY 06/24/22 07/14/22 tablet,extended release 24 hr omega 8-kju-xpc-fish oil 60 mg-90 1 cap PO DAILY 06/24/22 07/14/22 mg-500 mg capsule (Fish Oil) potassium citrate 10 mEq (1,080 20 meq PO BID 06/24/22 07/14/22 mg) tablet,extended release Previous Rx's Medication Instructions Recorded omeprazole 20 mg capsule,delayed 20 mg PO QDAY #90 caps 02/21/22 release oxybutynin chloride 15 mg 30 mg (2 x 15 mg) PO QDAY #180 tabs 02/21/22 tablet,extended release 24 hr warfarin 2 mg tablet See Rx Instructions PO QDAY #100 02/26/22 tabs cephalexin 500 mg capsule 500 mg PO TID #21 caps 07/14/22 tamsulosin 0.4 mg capsule 0.4 mg PO DAILY #90 caps 11/23/22 Allergies Allergy/AdvReac Type Severity Reaction Status Date / Time azithromycin AdvReac Verified 07/14/22 11:21 [From Zithromax Z-Neftaly] Review of Systems Status of ROS: Reports: 6 or more systems reviewed and unremarkable except as noted in History and below PFSH PFSH Surgical History Status post left hip replacement ?Z96.642 - Presence of left artificial hip joint (ICD-10) History of sinus surgery ?Z98.890 - Other specified postprocedural states (ICD-10) History of thumb surgery ?Z98.890 - Other specified postprocedural states (ICD-10) Status post cholecystectomy ?Z90.49 - Acquired absence of other specified parts of digestive tract (ICD-10) Status post appendectomy ?Z90.49 - Acquired absence of other specified parts of digestive tract (ICD-10) Status post left knee replacement ?Z96.652 - Presence of left artificial knee joint (ICD-10) Status post aortic valve replacement ?Z95.2 - Presence of prosthetic heart valve (ICD-10) Status post internal cardiac defibrillator procedure ?Z95.810 - Presence of automatic (implantable) cardiac defibrillator (ICD-10) Social History Smoking Status: Never smoker Do you use any of these nicotine containing products: None Second hand tobacco smoke exposure: No How often do you have a drink containing alcohol: never AUDIT-C Alcohol total score: 0 Non-prescribed substance use: denies use service: Yes Exam Const: Vital Signs, click to edit/add: Vital Signs - 24 hr 11/23/22 08:44 Temperature 98 F Pulse Rate [Pulse Oximeter] 51 L Respiratory Rate 18 Blood Pressure [Ri ght Upper Arm] 125/68 Pulse Oximetry 92 Oxygen Delivery Me thod Room Air Documenting provider has reviewed patient's vital signs: yes Common normals: no apparent distress, oriented x3, no limitations, healthy appearing, alert and well nourished General appearance: cooperative, comfortable, well kempt and well developed Nutritional appearance: obese HENMT: Common normals: normocephalic, head/scalp atraumatic and hearing grossly normal bilaterally Head and scalp: normocephalic and atraumatic Face and sinus: normal facial exam Eye: Common normals: PERRL, EOMs intact bilaterally, conjunctivae normal and no scleral icterus Conjunctiva: conjunctiva(e) normal Pupil: PERRL Resp: Common normals: normal respiratory effort, no retractions, no use of accessory muscles and clear to auscultation bilaterally Auscultation: clear to auscultation bilaterally Cardio: Common normals: regular rate (Heart rate is slow enough that he sounds completely regular at this time.), regular rhythm, S1 normal heart sound, S2 normal heart sound, no gallops, no clicks, no murmurs and no rub Rate: regular rate (Heart rate is slow enough that he sounds completely regular at this time.) Rhythm: regular rhythm Heart sounds: S1 normal and S2 normal GI: Common normals: Normal to inspection, nondistended, normoactive bowel sounds present, soft to palpation, non-tender, no hepatosplenomegaly and no masses Palpation: soft and no hepatosplenomegaly Neuro: Common normals: oriented x3 Sensorium/orientation: alert Psych: Appearance: well kempt Course Course Hospital Course: Will obtain blood work including CBC, basic metabolic panel, INR in urinalysis. Patient is able to urinate thus does not seem to have any obstructive symptoms from hematuria. The urine collected looks like it is already clearing. Will plan to talk to Urology at [facility] once I have some basic lab work back. Reevaluation(s) Time of Reevaluation #1: 11:21 Reevaluation #1: Patient and his were present, reviewed that he indeed has hematuria but no evidence of infection. His hemoglobin is stable, INR is 2.2. Reviewed that it spoken with the physician at [facility] in Urology. Discussed signs and symptoms for return, specifically obstructive urination. It is likely his stones in the chronic warfarin use. Did confirm with him that he does indeed have a mechanical valve. Thus, cannot safely go off Coumadin. This is something he is going to need to work through with [facility]. Consultations Consultation #1: Spoke with Marianne LAUREN at [facility]. She will page Urology. 10:58 a.m., Dr. Murray in Urology did call back. He was able to see that the patient had had an appropriate workup in July for hematuria. It was thought that the stones in the chronic warfarin were the issue. He agreed that it is very unlikely within the last 4 months that there was a significant new pathology. Patient is scheduled for followup there Tuesday. We will confirm no significant retention in the bladder with bladder scan. Will allow patient to discharge in he can complete his outpatient workup on Tuesday as planned. Time: 10:42 Vital Signs Vital signs: Initial Vital Signs Temperature 98 F 11/23/22 08:44 Temperature Source Temporal Artery Scan 11/23/22 08:44 Pulse Rate 51 L 11/23/22 08:44 Respiratory Rate 18 11/23/22 08:44 Blood Pressure 125/68 11/23/22 08:44 Blood Pressure Mean 87 11/23/22 08:44 Blood Pressure Position Sitting 11/23/22 08:44 Pulse Oximetry 92 11/23/22 08:44 Oxygen Delivery Method Room Air 11/23/22 08:44 Vital Signs Temperature 98 F 11/23/22 08:44 Pulse Rate 51 L 11/23/22 08:44 Respiratory Rate 18 11/23/22 08:44 Blood Pressure 125/68 11/23/22 08:44 Pulse Oximetry 92 11/23/22 08:44 Oxygen Delivery Method Room Air 11/23/22 08:44 Temperature 98 F 11/23/22 08:44 Pulse Rate 51 L 11/23/22 08:44 Respiratory Rate 18 11/23/22 08:44 Blood Pressure 125/68 11/23/22 08:44 Pulse Oximetry 92 11/23/22 08:44 Oxygen Delivery Method Room Air 11/23/22 08:44 MDM - Male Genitourinary Lab Data Attestation: I reviewed the patient's lab results. Labs: Lab Results 11/23/22 11/23/22 Range/Units 09:35 09:36 WBC 8.53 (4.50-11.00) K/uL RBC 5.40 (4.30-5.90) m/uL Hgb 16.9 (13.5-17.5) gm/dL Hct 51.2 (37.0-53.0) % MCV 95 (80-100) fL MCH 31 (26-34) pg MCHC 33 (32-36) gm/dL RDW Coeff of Mara 13.6 (11.5-15.5) % Plt Count 176 (140-440) K/uL Neut % (Auto) 64.5 (42.0-72.0) % Lymph % (Auto) 23.9 (20-44) % Camp % (Auto) 8.8 (0.0-11.0) % Eos % (Auto) 2.6 (0.0-7.0) % Baso % (Auto) 0.1 (0.0-3.0) % Neut # (Auto) 5.50 (1.7-7.0) K/uL Lymph # (Auto) 2.04 (0.90-2.90) K/uL Camp # (Auto) 0.80 (0.00-0.90) K/UL Eos # (Auto) 0.22 (0.00-0.50) K/uL Baso # (Auto) 0.01 (0.00-0.30) K/uL INR 2.20 H (0.91-1.10) Sodium 135 (135-149) mmol/L Potassium 3.8 (3.6-5.1) mmol/L Chloride 99 (96-114) mmol/L Carbon Dioxide 32 (20-32) mmol/L BUN 60 H (7-30) mg/dL Creatinine 2.1 H (0.5-1.5) mg/dL Estimated Creat Clear 29.93 Estimated GFR 32 ml/min Glucose 98 (60-115) mg/dL Calcium 9.9 (8.4-10.6) mg/dL Urine Color Red A (Yellow) Urine Appearance Cloudy A (Clear) Urine pH 7.0 (5.0-8.5) Ur Specific [place] 1.020 (1.000-1.030) Urine Protein 2+ A (Negative) Urine Glucose (UA) Negative (Negative) Urine Ketones Negative (Negative) Urine Blood 3+ A (Negative) Urine Nitrite Negative (Negative) Urine Bilirubin Negative (Negative) Urine Urobilinogen 0.2 (0.2-1.0) Ur Leukocyte Esterase 1+ A (Negative) Urine RBC >100 A (0-2) Urine WBC 2-5 (0-5) Ur Squamous Epith Cells Few (None-Few) Urine Bacteria None (None) Discharge Plan Discharge Clinical Impression: Hematuria, Chronic anticoagulation Patient Disposition: Home, Self-Care Condition: Stable Instructions: Hematuria (ED) Additional Instructions: INR was 2.2 today. Try to drink adequate fluids to keep up urination, this will help prevent significant clot formation. If you are unable to urinate in the context of hematuria, this could mean that there is an obstructive clot. We would certainly initiate bladder irrigation in these instances, this would be a time where you are recommended to come to the emergency room. Please complete your scheduled workup at [facility] as scheduled for this Tuesday. Activity Level: Activity as Tolerated Prescriptions: No Action cephalexin 500 mg capsule 500 mg PO TID Qty: 21 0RF hydrochlorothiazide 12.5 mg tablet 12.5 mg PO DAILY potassium citrate 10 mEq (1,080 mg) tablet extended release 20 meq PO BID Patient Comments: TAKE 2 TABLETS BY MOUTH TWICE DAILY WITH MEALS metoprolol succinate 50 mg tablet extended release 24 hr 100 mg PO DAILY MediHoney (honey) 80 % gel 1 applic topical DAILY ascorbic acid (vitamin C) 500 mg capsule 500 mg PO DAILY omega 4-kpv-jbk-fish oil [Fish Oil] 60-90-500 mg capsule 1 cap PO DAILY calcium carbonate 430 mg calcium (1,000 mg) tablet,chewable 430 mg PO DAILY fluticasone propionate [Flonase Allergy Relief] 50 mcg/actuation spray,suspension 1 spray intranasal DAILY PRN Rx Instructions: administer into each nostril oxybutynin chloride 15 mg tablet extended release 24hr 30 mg PO QDAY Qty: 180 3RF omeprazole 20 mg capsule,delayed release(DR/EC) 20 mg PO QDAY Qty: 90 3RF warfarin 2 mg tablet See Rx Instructions PO QDAY Qty: 100 3RF Rx Instructions: 6 mg --, and 8 mg Q -- tamsulosin 0.4 mg capsule 0.4 mg PO DAILY Qty: 90 0RF Patient Comments: TAKE 1 CAPSULE BY MOUTH DAILY Follow Up/Referrals: Daniel Molina MD [Primary Care Provider] - Stand Alone Forms: [facility] Info Instructions
--- NOTE | 2022-11-23 09:37 | ED.NURSE ---
patient voided 90cc of bloody urine and has no control over this wearing a attends and changed/ cleaned up due to incontinence. collected a clean sample and sent to lab.
[2022-11-23 09:56] LABS: Basophils Absolute Auto 0.01 K/uL (0.00-0.30); Basophils Percent Auto 0.1 % (0.0-3.0); Eosinophils Absolute Auto 0.22 K/uL (0.00-0.50); Eosinophils Percent Auto 2.6 % (0.0-7.0); Hematocrit 51.2 % (37.0-53.0); Hemoglobin* 16.9 gm/dL (13.5-17.5); Immature Granulocytes Abs Auto 0.01 K/uL (0.00-0.30); Immature Granulocytes Pct Auto 0.1 %; Lymphocytes Absolute Auto 2.04 K/uL (0.90-2.90); Lymphocytes Percent Auto 23.9 % (20-44); Mean Corpuscular HGB Conc 33 gm/dL (32-36); Mean Corpuscular Hemoglobin 31 pg (26-34); Mean Corpuscular Volume 95 fL (80-100); Monocytes Percent Auto 8.8 % (0.0-11.0); Neutrophils Percent Auto 64.5 % (42.0-72.0); Platelet Count* 176 K/uL (140-440); RDW Coefficient of Variation % 13.6 % (11.5-15.5); White Blood Count* 8.53 K/uL (4.50-11.00)
[2022-11-23 09:57] LABS: Appearance Urine Cloudy (Clear); Bilirubin Urine Negative (Negative); Blood Urine 3+ (Negative); Color Urine Red (Yellow); Glucose Urine Negative (Negative); Ketones Urine Negative (Negative); Leukocyte Esterase Urine 1+ (Negative); Nitrite Urine Negative (Negative); Protein Urine 2+ (Negative); Urobilinogen Urine 0.2 (0.2-1.0)
[2022-11-23 10:00] LABS: Slide Review Reflex No
[2022-11-23 10:06] LABS: RBC Urine >100 (0-2)
[2022-11-23 10:07] LABS: Squamous Epithelial Cell Urine Few (None-Few)
[2022-11-23 10:07] LABS: Chloride* 99 mmol/L (96-114); Potassium* 3.8 mmol/L (3.6-5.1); Sodium* 135 mmol/L (135-149)
[2022-11-23 10:09] LABS: Prothrombin Time 25.5 Seconds
[2022-11-23 10:10] LABS: Blood Urea Nitrogen* 60 mg/dL (7-30); Calcium* 9.9 mg/dL (8.4-10.6); Carbon Dioxide* 32 mmol/L (20-32); Creatinine* 2.1 mg/dL (0.5-1.5); Est. Creatinine Clearance* 29.93; Estimated Glomerular Filt Rate 32 ml/min; Glucose* 98 mg/dL (60-115)
--- NOTE | 2022-11-23 11:04 | ED.NURSE ---
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 voided 175cc
--- NOTE | 2022-11-23 11:17 | ED.NURSE ---
bladder scan was done and average was 146 cc after post void of 175 cc.
== END 2022-11-23 11:43 | disposition home or self-care (01) ==
PROVIDERS: Emergency Provider Family Medicine; PCP Family Medicine
DX: R31.9 Hematuria, unspecified (principal); Z79.01 Long term (current) use of anticoagulants
CPT/HCPCS: 36415; 51798; 80048; 81001; 85025; 85610; 99283; 99284

== ENCOUNTER 2022-12-24 06:07 | Outpatient (CLI) | payer MEDICARE, OTHER, SELFPAY | END 2022-12-24 06:08 | disposition home or self-care (01) | LOC: AMB 12-26 05:17 | PROVIDERS: PCP Family Medicine; Visit Provider Family Medicine | DX: R53.1 Weakness (principal) | CPT/HCPCS: A0425; A0429 ==

== ENCOUNTER 2022-12-24 07:00 | Emergency (ER) | payer MEDICARE, OTHER, SELFPAY ==
[2022-12-24 07:02] VITALS: BP 143/83; PULSE 52; RESP 18; TEMP 36.1; O2SAT 96
--- NOTE | 2022-12-24 07:25 | CRLHL7_ITS ---
For Patients: As a result of the Cures Act, medical imaging exams and procedure reports are released immediately into your electronic medical record. You may view this report before your referring provider. If you have questions, please contact your health care provider. Indication: Fall Technique: Bilateral knee AP and lateral 2 views Comparison: Left knee radiograph 07/11/2020 Findings/Impression: Right knee: No evidence of fracture. Tricompartmental degenerative arthrosis most notably with moderate to severe narrowing of the medial compartment. No knee effusion. Left knee: Knee arthroplasty without evidence of periprosthetic fracture for lucency. No knee effusion. Dictated by James Junior MD @ 12/24/2022 9:21:52 AM (Electronically Signed)
--- NOTE | 2022-12-24 07:27 | CRLHL7_ITS ---
For Patients: As a result of the Cures Act, medical imaging exams and procedure reports are released immediately into your electronic medical record. You may view this report before your referring provider. If you have questions, please contact your health care provider. Indication: Fall Technique: Right tibia-fibula, 2 views. Comparison: None. Findings: No fractures or bone lesions. No significant soft tissue swelling. Impression: No evidence of acute fracture. Dictated by James Junior MD @ 12/24/2022 9:18:09 AM (Electronically Signed)
--- NOTE | 2022-12-24 07:29 | ED_ITS ---
HPI - General Adult General Date Seen: 12/24/22 Chief complaint: Fall/Minor Trauma Stated complaint: fall Time Seen by Provider: 12/24/22 07:25 Source: patient and EMS Mode of arrival: EMS Limitations: no limitations History of Present Illness HPI narrative: Patient is a 77-year-old male with multiple medical problems. He is on warfarin for atrial fibrillation and his INR last week was 2.8. He sleeps in a chair and this morning when he needs to get up and use the bathroom he stumbled forward with his walker and fell into a display case with a glass front. He then fell to the ground landing on his walker. EMS was called. He complains of pain in both knees. The left knee has been more chronic in the right knee is from the injury tonight. He suffered some cuts to his right lower leg but no significant bleeding. He is in the process of having surgery at [facility] for ongoing hematuria. He has had lithotripsy and laser procedures done within the last year and continues to have significant hematuria. He is able to empty his bladder. He denies any head injury or loss of consciousness. Denies any headache or neck pain. He has been struggling with sleep and was recently suggested to switch from Tylenol p.m. to Ambien. He took his 1st dose of Ambien last evening which very likely contributed to his balance issues and his fall. Related Data Home Medications Medication Instructions Recorded Confirmed ascorbic acid (vitamin C) 500 mg 500 mg PO DAILY 06/24/22 12/17/22 capsule calcium carbonate 430 mg calcium 430 mg PO DAILY 06/24/22 12/17/22 (1,000 mg) chewable tablet fluticasone propionate 50 1 spray intranasal DAILY PRN 06/24/22 12/17/22 mcg/actuation nasal spray,suspension (Flonase Allergy Relief) honey 80 % topical gel (MediHoney 1 applic topical DAILY 06/24/22 12/17/22 (honey)) omega 8-yfh-ljd-fish oil 60 mg-90 1 cap PO DAILY 06/24/22 12/17/22 mg-500 mg capsule (Fish Oil) potassium citrate 10 mEq (1,080 20 meq PO BID 06/24/22 12/17/22 mg) tablet,extended release Previous Rx's Medication Instructions Recorded omeprazole 20 mg capsule,delayed 20 mg PO QDAY #90 caps 02/21/22 release oxybutynin chloride 15 mg 30 mg (2 x 15 mg) PO QDAY #180 tabs 02/21/22 tablet,extended release 24 hr tamsulosin 0.4 mg capsule 0.4 mg PO DAILY #90 caps 11/23/22 zolpidem 10 mg tablet 10 mg PO QHS #30 tabs 12/17/22 metoprolol succinate 100 mg 100 mg PO BID #180 tabs 12/20/22 tablet,extended release 24 hr warfarin 2 mg tablet See Rx Instructions PO .ud #90 tabs 12/20/22 warfarin 2 mg tablet See Rx Instructions PO QDAY #100 12/20/22 tabs Allergies Allergy/AdvReac Type Severity Reaction Status Date / Time azithromycin AdvReac Verified 12/17/22 13:53 [From Zithromax Z-Neftaly] Review of Systems Narrative: Review of systems is positive for sleep apnea requiring BiPAP. Hematuria as noted above. He has a pacemaker/defibrillator, atrial fibrillation, aortic valve replacement. PCP is Dr. Molina. Review of systems is otherwise noted to be negative. [facility] Surgical History Status post left hip replacement ?Z96.642 - Presence of left artificial hip joint (ICD-10) History of sinus surgery ?Z98.890 - Other specified postprocedural states (ICD-10) History of thumb surgery ?Z98.890 - Other specified postprocedural states (ICD-10) Status post cholecystectomy ?Z90.49 - Acquired absence of other specified parts of digestive tract (ICD- 10) Status post appendectomy ?Z90.49 - Acquired absence of other specified parts of digestive tract (ICD- 10) Status post left knee replacement ?Z96.652 - Presence of left artificial knee joint (ICD-10) Status post aortic valve replacement ?Z95.2 - Presence of prosthetic heart valve (ICD-10) Status post internal cardiac defibrillator procedure ?Z95.810 - Presence of automatic (implantable) cardiac defibrillator (ICD-10) Social History Smoking Status: Never smoker Do you use any of these nicotine containing products: None Second hand tobacco smoke exposure: No How often do you have a drink containing alcohol: never AUDIT-C Alcohol total score: 0 Non-prescribed substance use: denies use service: Yes Exam Narrative: Exam Narrative: Vitals noted. He is awake and alert and fully oriented. He is an adequate historian. HEENT: No outward sign of head trauma. Conjunctiva clear. Tympanic membranes are pearly white bilaterally. Posterior pharynx is clear without erythema or exudate. Neck is supple without adenopathy, thyromegaly, carotid bruit. Lungs: Clear to auscultation in all victor. No wheezes, rales, rhonchi. Heart: Irregularly irregular rate and rhythm without murmur. Abdomen: Obese, Soft and nontender. No guarding, rigidity, rebound. Bowel sounds are normal. No palpable masses. Extremities: He has some bruising and abrasions of the inner aspect of his right upper arm. Elbow range of motion and shoulder range of motion are full. He has had a previous left total knee arthroplasty. There is tenderness with flexion and extension. No ligamentous laxity. The right the knee is painful to move but his exam is otherwise unremarkable. He has tenderness of the anterior and lateral portion of the right lower leg with multiple superficial abrasions and skin tears. None of these are actively bleeding. Neurologic: Awake, alert, fully oriented. Neurologic exam is nonfocal. Const: Vital Signs, click to edit/add: Vital Signs - 24 hr 12/24/22 07:02 Temperature 96.9 F L Pulse Rate [Left P ulse Oximeter] 52 L Respiratory Rate 18 Blood Pressure [Ri ght Upper Arm] 143/83 H Pulse Oximetry 96 Oxygen Delivery Me thod Room Air Course Course Hospital Course: Patient was seen and examined. X-rays are ordered of both knees as well as the right tibia and fibula. He had an INR of 2.8 last week and has not had change in his Coumadin dose in a long time. Vital Signs Vital signs: Initial Vital Signs Temperature 96.9 F L 12/24/22 07:02 Temperature Source Temporal Artery Scan 12/24/22 07:02 Pulse Rate 52 L 12/24/22 07:02 Pulse Rhythm Regular 12/24/22 07:02 Respiratory Rate 18 12/24/22 07:02 Blood Pressure 143/83 H 12/24/22 07:02 Blood Pressure Mean 103 12/24/22 07:02 Blood Pressure Position Semi-Fowlers 12/24/22 07:02 Pulse Oximetry 96 12/24/22 07:02 Oxygen Delivery Method Room Air 12/24/22 07:02 Vital Signs Temperature 96.9 F L 12/24/22 07:02 Pulse Rate 52 L 12/24/22 07:02 Respiratory Rate 18 12/24/22 07:02 Blood Pressure 143/83 H 12/24/22 07:02 Pulse Oximetry 96 12/24/22 07:02 Oxygen Delivery Method Room Air 12/24/22 07:02 Temperature 96.9 F L 12/24/22 07:02 Pulse Rate 52 L 12/24/22 07:02 Respiratory Rate 18 12/24/22 07:02 Blood Pressure 143/83 H 12/24/22 07:02 Pulse Oximetry 96 12/24/22 07:02 Oxygen Delivery Method Room Air 12/24/22 07:02 Discharge Plan Discharge Prescriptions: No Action zolpidem 10 mg tablet 10 mg PO QHS Qty: 30 2RF potassium citrate 10 mEq (1,080 mg) tablet extended release 20 meq PO BID Patient Comments: TAKE 2 TABLETS BY MOUTH TWICE DAILY WITH MEALS MediHoney (honey) 80 % gel 1 applic topical DAILY ascorbic acid (vitamin C) 500 mg capsule 500 mg PO DAILY omega 2-ffg-ooe-fish oil [Fish Oil] 60-90-500 mg capsule 1 cap PO DAILY calcium carbonate 430 mg calcium (1,000 mg) tablet,chewable 430 mg PO DAILY fluticasone propionate [Flonase Allergy Relief] 50 mcg/actuation spray,suspension 1 spray intranasal DAILY PRN Rx Instructions: administer into each nostril oxybutynin chloride 15 mg tablet extended release 24hr 30 mg PO QDAY Qty: 180 3RF omeprazole 20 mg capsule,delayed release(DR/EC) 20 mg PO QDAY Qty: 90 3RF tamsulosin 0.4 mg capsule 0.4 mg PO DAILY Qty: 90 0RF Patient Comments: TAKE 1 CAPSULE BY MOUTH DAILY warfarin 2 mg tablet See Rx Instructions PO QDAY Qty: 100 11RF Rx Instructions: 6 mg QM-W-F, and 8 mg Q --- metoprolol succinate 100 mg tablet extended release 24 hr 100 mg PO BID Qty: 180 3RF warfarin 2 mg tablet See Rx Instructions PO .ud Qty: 90 3RF Rx Instructions: 2 mg Q T--S-, to supplement the 6 mg dose orally UD; Follow Up/Referrals: Daniel Molina MD [Primary Care Provider] -
[2022-12-24 09:55] VITALS: BP 142/79; PULSE 50; RESP 20; O2SAT 95
--- NOTE | 2022-12-24 10:23 | ED.NURSE ---
pt walked to bathroom with walker without any difficulty.
== END 2022-12-24 10:25 | disposition home or self-care (01) ==
PROVIDERS: Emergency Provider Family Medicine; PCP Family Medicine
DX: S80.02XA Contusion of left knee, initial encounter (principal); S80.01XA Contusion of right knee, initial encounter; W19.XXXA Unspecified fall, initial encounter
CPT/HCPCS: 73560; 73590; 99282; 99283

== ENCOUNTER 2023-06-02 13:11 | Observation (INO) | payer MEDICARE, OTHER, SELFPAY ==
[2023-06-02] VITALS (21 sets, daily range): BP systolic 109–163; BP diastolic 68–95; PULSE 50–55; RESP 16–20; TEMP 36.4–36.8; O2SAT 91–98; BMI 39.5
--- NOTE | 2023-06-02 | CRLHL7_ITS ---
For Patients: As a result of the Century Cures Act, medical imaging exams and procedure reports are released immediately into your electronic medical record. You may view this report before your referring provider. If you have questions, please contact your health care provider. INDICATION: Acute stroke. TECHNIQUE: CTA head with contrast bolus tracking, 3D angiographic rendering using maximum intensity projection (MIP) and images permanently archived. FINDINGS: There intracranial vasculature is diffusely tortuous and ectatic. There is otherwise normal opacification of the intracranial vasculature. There is no large vessel occlusion or significant intracranial stenosis. No saccular aneurysm is identified. IMPRESSION: No large vessel occlusion. Please note that all CT scans at this facility use dose modulation, iterative reconstruction, and/or weight-based dosing when appropriate to reduce radiation dose to as low as reasonably achievable. Dictated by Delmer Anderson MD @ 06/03/2023 7:24:07 AM (Electronically Signed)
--- NOTE | 2023-06-02 13:43 | CRLHL7_ITS ---
For Patients: As a result of the Century Cures Act, medical imaging exams and procedure reports are released immediately into your electronic medical record. You may view this report before your referring provider. If you have questions, please contact your health care provider. Indication: TIA Technique: Volumetric multidetector CT images of the head were obtained without the administration of low osmolar intravenous contrast. Comparison: CT head June 30, 2022 Findings: There is no intra-axial or extra-axial fluid collection. There is no mass effect or midline shift. There is age-related cortical atrophy with moderate sulcal widening and ex vacuo dilatation of the lateral ventricles. There are chronic small vessel disease changes in the subcortical and periventricular white matter without lost schneider-white differentiation. The orbits and their contents are grossly within normal limits. The bony calvarium is grossly intact. The paranasal sinuses are clear. The mastoid air cells are well aerated. Impression: 1. Age-related changes of the brain without acute intracranial abnormality. A report was sent to Dr. Aguilar at 2:19 p.m. 06/02/2023 Please note that all CT scans at this facility use dose modulation, iterative reconstruction, and/or weight-based dosing when appropriate to reduce radiation dose to as low as reasonably achievable. Dictated by Porfirio Kaur MD @ 06/02/2023 2:25:17 PM (Electronically Signed)
--- NOTE | 2023-06-02 13:55 | CRLHL7_ITS ---
For Patients: As a result of the Century Cures Act, medical imaging exams and procedure reports are released immediately into your electronic medical record. You may view this report before your referring provider. If you have questions, please contact your health care provider. INDICATION: Acute stroke. TECHNIQUE: CTA neck with contrast bolus tracking, 3D angiographic rendering using maximum intensity projection (MIP) and images permanently archived. FINDINGS: There is no significant carotid artery stenosis or dissection. There is no significant vertebral artery stenosis or dissection. The soft tissues of the neck are within normal limits. Degenerative changes are noted in the cervical spine. IMPRESSION: No significant carotid or vertebral artery stenosis or dissection. Please note that all CT scans at this facility use dose modulation, iterative reconstruction, and/or weight-based dosing when appropriate to reduce radiation dose to as low as reasonably achievable. Dictated by Delmer Anderson MD @ 06/03/2023 7:26:04 AM (Electronically Signed)
[2023-06-02 14:38] LABS: Basophils Absolute Auto 0.01 K/uL (0.00-0.30); Basophils Percent Auto 0.1 % (0.0-3.0); Eosinophils Absolute Auto 0.16 K/uL (0.00-0.50); Eosinophils Percent Auto 2.2 % (0.0-7.0); Hematocrit 52.4 % (37.0-53.0); Hemoglobin* 17.3 gm/dL (13.5-17.5); Immature Granulocytes Abs Auto 0.01 K/uL (0.00-0.30); Immature Granulocytes Pct Auto 0.1 %; Lymphocytes Absolute Auto 2.18 K/uL (0.90-2.90); Lymphocytes Percent Auto 29.7 % (20-44); Mean Corpuscular HGB Conc 33 gm/dL (32-36); Mean Corpuscular Hemoglobin 32 pg (26-34); Mean Corpuscular Volume 96 fL (80-100); Monocytes Percent Auto 10.1 % (0.0-11.0); Neutrophils Absolute Auto 4.24 K/uL (1.7-7.0); Neutrophils Percent Auto 57.8 % (42.0-72.0); Platelet Count* 163 K/uL (140-440); RDW Coefficient of Variation % 14.3 % (11.5-15.5); Red Blood Count 5.44 m/uL (4.30-5.90); White Blood Count* 7.34 K/uL (4.50-11.00)
[2023-06-02 14:46] LABS: Albumin* 4.3 g/dL (3.3-5.0); Chloride* 101 mmol/L (96-114); INR 1.84 (0.91-1.10); Prothrombin Time 22.5 Seconds
[2023-06-02 14:47] LABS: Potassium* 4.3 mmol/L (3.6-5.1); Sodium* 138 mmol/L (135-149)
[2023-06-02 14:49] LABS: Alkaline Phosphatase* 96 U/L (40-150); Anion Gap 10 mEq/L (7-15); Aspartate Amino Transferase* 37 U/L (12-35); Bilirubin Total* 0.9 mg/dL (0.1-1.5); Blood Urea Nitrogen* 27 mg/dL (7-30); Carbon Dioxide* 27 mmol/L (20-32); Creatinine* 1.8 mg/dL (0.5-1.5); Est. Creatinine Clearance* 34.92; Estimated Glomerular Filt Rate 38 ml/min
[2023-06-02 14:50] LABS: Alanine Aminotransferase* 18 U/L (4-50); Calcium* 9.9 mg/dL (8.4-10.6); Glucose* 89 mg/dL (60-115)
[2023-06-02 15:00] LABS: Slide Review Reflex No
[2023-06-02 15:02] LABS: Troponin I* 0.06 ng/mL (0.01-0.04)
[2023-06-02 15:06] LABS: PCR FLU A Negative PCR FLU A (Negative); PCR FLU B Negative PCR FLU B (Negative); PCR RSV Negative PCR RSV (Negative)
[2023-06-02 15:07] LABS: SARS PCR* Negative SARS-CoV-2 (Negative)
--- NOTE | 2023-06-02 15:39 | ED_ITS ---
HPI - Neuro Symptoms/Deficit General Date Seen: 06/02/23 Chief Complaint: Neuro Symptoms/Altered Deficit Stated Complaint: L arm spasms Time Seen by Provider: 06/02/23 13:12 Source: patient Mode of arrival: ambulatory Limitations: no limitations History of Present Illness HPI Narrative: Patient is a 77-year-old male with history of chronic kidney disease, hypertension, aortic valve replacement, AFib on warfarin presenting to the emergency department for left arm spasticity. He states roughly 30 minutes prior to arrival to the emergency department his left arm became numb and he had no control of it. He has never had these symptoms before. States by the time he arrived to emergency department they have resolved. They symptoms came on suddenly a felt like he could not move his hand away he wanted 2. Patient does notice weakness in his left leg but he cannot state if it is any different than normal as he does have chronic leg issues and typically has weakness to his left leg because of that. Denies missing any doses of his medication. Denies fevers, chills, headache, vision changes, lightheadedness, dizziness, abdominal pain, chest pain, shortness of breath. He states that this time he feels back to normal. Related Data Home Medications Medication Instructions Recorded Confirmed ascorbic acid (vitamin C) 500 mg 500 mg PO DAILY 06/24/22 05/26/23 capsule calcium carbonate 430 mg calcium 430 mg PO DAILY 06/24/22 05/26/23 (1,000 mg) chewable tablet fluticasone propionate 50 1 spray intranasal DAILY PRN 06/24/22 05/26/23 mcg/actuation nasal spray,suspension (Flonase Allergy Relief) omega 4-psw-vuc-fish oil 60 mg-90 1 cap PO DAILY 06/24/22 05/26/23 mg-500 mg capsule (Fish Oil) potassium citrate 10 mEq (1,080 20 meq PO BID 06/24/22 05/26/23 mg) tablet,extended release Previous Rx's Medication Instructions Recorded metoprolol succinate 100 mg 100 mg PO BID #180 tabs 12/20/22 tablet,extended release 24 hr warfarin 2 mg tablet See Rx Instructions PO .ud #90 tabs 12/20/22 warfarin 2 mg tablet See Rx Instructions PO QDAY #100 12/20/22 tabs omeprazole 20 mg capsule,delayed 20 mg PO QDAY #90 caps 03/21/23 release tamsulosin 0.4 mg capsule 0.4 mg PO DAILY #90 caps 03/21/23 warfarin 4 mg tablet See Rx Instructions PO .ud #100 03/21/23 tabs oxybutynin chloride 15 mg 30 mg (2 x 15 mg) PO QDAY #180 tabs 05/03/23 tablet,extended release 24 hr furosemide 20 mg tablet 20 mg PO BID #180 tabs 05/26/23 Allergies Allergy/AdvReac Type Severity Reaction Status Date / Time azithromycin AdvReac Verified 05/26/23 10:39 [From Zithromax Z-Neftaly] Review of Systems Status of ROS: Reports: 10 or more systems reviewed and unremarkable except as noted in History and below [facility] Medical History Contusion of knee ?S80.00XA - Contusion of unspecified knee, initial encounter (ICD-10) Surgical History History of aortic valve replacement ?Z95.2 - Presence of prosthetic heart valve (ICD-10) Status post left hip replacement ?Z96.642 - Presence of left artificial hip joint (ICD-10) History of sinus surgery ?Z98.890 - Other specified postprocedural states (ICD-10) History of thumb surgery ?Z98.890 - Other specified postprocedural states (ICD-10) Social History Smoking Status: Never smoker Do you use any of these nicotine containing products: None Second hand tobacco smoke exposure: No How often do you have a drink containing alcohol: never AUDIT-C Alcohol total score: 0 Non-prescribed substance use: denies use Little interest or pleasure in doing things: several days Feeling down, depressed, or hopeless: several days service: Yes Exam Const: Vital Signs, click to edit/add: Vital Signs - 24 hr 06/02/23 13:20 06/02/23 14:17 06/02/23 14:30 Temperature 97.9 F Pulse Rate 50 L 50 L Pulse Rate [Femora l] 55 L Respiratory Rate 20 Blood Pressure Blood Pressure [Ri ght Upper Arm] 109/68 Pulse Oximetry 96 94 91 Oxygen Delivery Me thod Room Air 06/02/23 14:35 06/02/23 14:45 06/02/23 14:47 Temperature Pulse Rate 50 L 50 L 50 L Pulse Rate [Femora l] Respiratory Rate Blood Pressure Blood Pressure [Ri ght Upper Arm] Pulse Oximetry 92 93 92 Oxygen Delivery Me thod 06/02/23 14:55 06/02/23 15:01 06/02/23 15:58 Temperature Pulse Rate 50 L 50 L Pulse Rate [Femora l] Respiratory Rate Blood Pressure 137/79 Blood Pressure [Ri ght Upper Arm] Pulse Oximetry 93 93 Oxygen Delivery Me thod 06/02/23 16:01 06/02/23 16:15 06/02/23 16:30 Temperature Pulse Rate 50 L 50 L 50 L Pulse Rate [Femora l] Respiratory Rate Blood Pressure Blood Pressure [Ri ght Upper Arm] Pulse Oximetry 95 97 95 Oxygen Delivery Me thod 06/02/23 16:45 06/02/23 17:00 06/02/23 17:15 Temperature Pulse Rate 50 L 50 L 50 L Pulse Rate [Femora l] Respiratory Rate Blood Pressure Blood Pressure [Ri ght Upper Arm] Pulse Oximetry 98 95 95 Oxygen Delivery Me thod 06/02/23 17:30 06/02/23 17:45 Temperature Pulse Rate 50 L 51 L Pulse Rate [Femora l] Respiratory Rate Blood Pressure Blood Pressure [Ri ght Upper Arm] Pulse Oximetry 95 95 Oxygen Delivery Me thod Course Vital Signs Vital signs: Initial Vital Signs Temperature 97.9 F 06/02/23 13:20 Temperature Source Temporal Artery Scan 06/02/23 13:20 Pulse Rate 55 L 06/02/23 13:20 Respiratory Rate 20 06/02/23 13:20 Blood Pressure 109/68 06/02/23 13:20 Blood Pressure Mean 81 06/02/23 13:20 Pulse Oximetry 96 06/02/23 13:20 Oxygen Delivery Method Room Air 06/02/23 13:20 Vital Signs Temperature 97.9 F 06/02/23 13:20 Pulse Rate 55 L 06/02/23 13:20 Respiratory Rate 20 06/02/23 13:20 Blood Pressure 109/68 06/02/23 13:20 Pulse Oximetry 96 06/02/23 13:20 Oxygen Delivery Method Room Air 06/02/23 13:20 Temperature 97.9 F 06/02/23 13:20 Pulse Rate 51 L 06/02/23 17:45 Respiratory Rate 20 06/02/23 13:20 Blood Pressure 137/79 06/02/23 15:58 Pulse Oximetry 95 06/02/23 17:45 Oxygen Delivery Method Room Air 06/02/23 13:20 Medications Administered Medications: Generic Name Dose Route Start Last Admin Trade Name Freq PRN Reason Stop Dose Admin Heparin Sodium/Dextrose 25,000 unit in 500 mls @ 0 mls/hr 06/02/23 16:30 06/02/23 16:47 Heparin IV 1,000 unit/hr .Q0M VIKI 20 mls/hr Administration Protocol Per Protocol Discontinued Medications Generic Name Dose Route Start Last Admin Trade Name Freq PRN Reason Stop Dose Admin Heparin Sodium (Porcine) 4,000 unit 06/02/23 16:16 06/02/23 16:49 Heparin 5,000 Unit/0.5 Ml Inj IVP 06/02/23 16:17 4,000 unit ONCE ONE Administration Sodium Chloride 1,000 mls @ 1,000 mls/hr 06/02/23 15:00 06/02/23 16:50 0.9 % Sodium Chloride 1000 Ml IV 06/02/23 15:59 1,000 mls/hr .Q1H VIKI Administration MDM - Neuro Symptoms/Deficit MDM Narrative Medical decision making narrative: Patient is a 77-year-old male presenting for what sounds like a TIA that affected his left arm. He is not currently having any obvious lower extremity weakness compared to his baseline but cannot say for says she is certain if it is different or not. I did speak to Dr. Aguilar of [facility] who agrees this is likely a TIA. Recommends head CT and thought that was reasonable do do a CTA of the head and neck. NIH stroke scale is 0 at this time. Will order an INR, CBC, CMP, COVID/flu/RSV, troponin, EKG. Lab work returned troponin 0.06. He does have a creatinine of 1.8 and with his multiple heart issues his heart say this is chronic elevation or the new concerns. His INR is 1.8 which is subtherapeutic. I spoke to Dr. Aguilar again and he thinks this is the likely culprit of his TIA. I informed him we cannot do MRI is due to his pacemaker he states that is okay need is not needed at this time he does recommend bridging him until his INR is at an acceptable level. Patient is accepted to the hospitalist service. Repeat troponin is the same at 0.06 Lab Data Labs: Lab Results 06/02/23 06/02/23 06/02/23 Range/Units 14:12 14:12 14:12 WBC 7.34 Cancelled (4.50-11.00) K/uL RBC 5.44 Cancelled (4.30-5.90) m/uL Hgb 17.3 (13.5-17.5) gm/dL Hct (37.0-53.0) % MCV (80-100) fL MCH (26-34) pg MCHC (32-36) gm/dL RDW Coeff of Mara (11.5-15.5) % Plt Count (140-440) K/uL Neut % (Auto) (42.0-72.0) % Lymph % (Auto) (20-44) % [place] % (Auto) (0.0-11.0) % Eos % (Auto) (0.0-7.0) % Baso % (Auto) (0.0-3.0) % Neut # (Auto) (1.7-7.0) K/uL Lymph # (Auto) (0.90-2.90) K/uL [place] # (Auto) (0.00-0.90) K/UL Eos # (Auto) (0.00-0.50) K/uL Baso # (Auto) (0.00-0.30) K/uL Abs Immat Gran (auto) (0.00-0.30) K/uL Imm/Tot Granulo (auto) % INR (0.91-1.10) APTT (23-33) Seconds Sodium (135-149) mmol/L Potassium (3.6-5.1) mmol/L Chloride (96-114) mmol/L Carbon Dioxide (20-32) mmol/L Anion Gap (7-15) mEq/L BUN (7-30) mg/dL Creatinine (0.5-1.5) mg/dL Estimated Creat Clear Estimated GFR ml/min Glucose (60-115) mg/dL Calcium (8.4-10.6) mg/dL Total Bilirubin (0.1-1.5) mg/dL AST (12-35) U/L ALT (4-50) U/L Alkaline Phosphatase (40-150) U/L Troponin I (0.01-0.04) ng/mL Total Protein (6.0-8.3) g/dL Albumin (3.3-5.0) g/dL SARS-CoV-2 (PCR) (Negative) Influenza Type A (PCR) (Negative) Influenza Type B (PCR) (Negative) RSV (PCR) (Negative) 06/02/23 06/02/23 06/02/23 Range/Units 14:12 14:12 14:12 WBC (4.50-11.00) K/uL RBC (4.30-5.90) m/uL Hgb Cancelled (13.5-17.5) gm/dL Hct 52.4 Cancelled (37.0-53.0) % MCV 96 Cancelled (80-100) fL MCH 32 (26-34) pg MCHC (32-36) gm/dL RDW Coeff of Mara (11.5-15.5) % Plt Count (140-440) K/uL Neut % (Auto) (42.0-72.0) % Lymph % (Auto) (20-44) % [place] % (Auto) (0.0-11.0) % Eos % (Auto) (0.0-7.0) % Baso % (Auto) (0.0-3.0) % Neut # (Auto) (1.7-7.0) K/uL Lymph # (Auto) (0.90-2.90) K/uL [place] # (Auto) (0.00-0.90) K/UL Eos # (Auto) (0.00-0.50) K/uL Baso # (Auto) (0.00-0.30) K/uL Abs Immat Gran (auto) (0.00-0.30) K/uL Imm/Tot Granulo (auto) % INR (0.91-1.10) APTT (23-33) Seconds Sodium (135-149) mmol/L Potassium (3.6-5.1) mmol/L Chloride (96-114) mmol/L Carbon Dioxide (20-32) mmol/L Anion Gap (7-15) mEq/L BUN (7-30) mg/dL Creatinine (0.5-1.5) mg/dL Estimated Creat Clear Estimated GFR ml/min Glucose (60-115) mg/dL Calcium (8.4-10.6) mg/dL Total Bilirubin (0.1-1.5) mg/dL AST (12-35) U/L ALT (4-50) U/L Alkaline Phosphatase (40-150) U/L Troponin I (0.01-0.04) ng/mL Total Protein (6.0-8.3) g/dL Albumin (3.3-5.0) g/dL SARS-CoV-2 (PCR) (Negative) Influenza Type A (PCR) (Negative) Influenza Type B (PCR) (Negative) RSV (PCR) (Negative) 06/02/23 06/02/23 06/02/23 Range/Units 14:12 14:12 14:12 WBC (4.50-11.00) K/uL RBC (4.30-5.90) m/uL Hgb (13.5-17.5) gm/dL Hct (37.0-53.0) % MCV (80-100) fL MCH Cancelled (26-34) pg MCHC 33 Cancelled (32-36) gm/dL RDW Coeff of Mara 14.3 (11.5-15.5) % Plt Count 163 Cancelled (140-440) K/uL Neut % (Auto) 57.8 (42.0-72.0) % Lymph % (Auto) 29.7 (20-44) % [place] % (Auto) 10.1 (0.0-11.0) % Eos % (Auto) 2.2 (0.0-7.0) % Baso % (Auto) 0.1 (0.0-3.0) % Neut # (Auto) 4.24 (1.7-7.0) K/uL Lymph # (Auto) 2.18 (0.90-2.90) K/uL [place] # (Auto) 0.70 (0.00-0.90) K/UL Eos # (Auto) 0.16 (0.00-0.50) K/uL Baso # (Auto) 0.01 (0.00-0.30) K/uL Abs Immat Gran (auto) 0.01 (0.00-0.30) K/uL Imm/Tot Granulo (auto) 0.1 % INR 1.84 H (0.91-1.10) APTT (23-33) Seconds Sodium (135-149) mmol/L Potassium (3.6-5.1) mmol/L Chloride (96-114) mmol/L Carbon Dioxide (20-32) mmol/L Anion Gap (7-15) mEq/L BUN (7-30) mg/dL Creatinine (0.5-1.5) mg/dL Estimated Creat Clear Estimated GFR ml/min Glucose (60-115) mg/dL Calcium (8.4-10.6) mg/dL Total Bilirubin (0.1-1.5) mg/dL AST (12-35) U/L ALT (4-50) U/L Alkaline Phosphatase (40-150) U/L Troponin I (0.01-0.04) ng/mL Total Protein (6.0-8.3) g/dL Albumin (3.3-5.0) g/dL SARS-CoV-2 (PCR) (Negative) Influenza Type A (PCR) (Negative) Influenza Type B (PCR) (Negative) RSV (PCR) (Negative) 06/02/23 06/02/23 06/02/23 Range/Units 14:12 14:12 16:52 WBC (4.50-11.00) K/uL RBC (4.30-5.90) m/uL Hgb (13.5-17.5) gm/dL Hct (37.0-53.0) % MCV (80-100) fL MCH (26-34) pg MCHC (32-36) gm/dL RDW Coeff of Mara (11.5-15.5) % Plt Count (140-440) K/uL Neut % (Auto) (42.0-72.0) % Lymph % (Auto) (20-44) % [place] % (Auto) (0.0-11.0) % Eos % (Auto) (0.0-7.0) % Baso % (Auto) (0.0-3.0) % Neut # (Auto) (1.7-7.0) K/uL Lymph # (Auto) (0.90-2.90) K/uL [place] # (Auto) (0.00-0.90) K/UL Eos # (Auto) (0.00-0.50) K/uL Baso # (Auto) (0.00-0.30) K/uL Abs Immat Gran (auto) (0.00-0.30) K/uL Imm/Tot Granulo (auto) % INR Cancelled (0.91-1.10) APTT 35 H Cancelled (23-33) Seconds Sodium 138 (135-149) mmol/L Potassium 4.3 (3.6-5.1) mmol/L Chloride 101 (96-114) mmol/L Carbon Dioxide 27 (20-32) mmol/L Anion Gap 10 (7-15) mEq/L BUN 27 (7-30) mg/dL Creatinine 1.8 H (0.5-1.5) mg/dL Estimated Creat Clear 34.92 Estimated GFR 38 ml/min Glucose 89 (60-115) mg/dL Calcium 9.9 (8.4-10.6) mg/dL Total Bilirubin 0.9 (0.1-1.5) mg/dL AST 37 H (12-35) U/L ALT 18 (4-50) U/L Alkaline Phosphatase 96 (40-150) U/L Troponin I 0.06 H* 0.06 H* (0.01-0.04) ng/mL Total Protein 8.0 (6.0-8.3) g/dL Albumin 4.3 (3.3-5.0) g/dL SARS-CoV-2 (PCR) Negative SARS-CoV-2 (Negative) Influenza Type A (PCR) Negative PCR FLU A (Negative) Influenza Type B (PCR) Negative PCR FLU B (Negative) RSV (PCR) Negative PCR RSV (Negative) Imaging Data CT scan head: Radiologist's impression: 1. Age-related changes of the brain without acute intracranial abnormality. A report was sent to Dr. Aguilar at 2:19 p.m. 06/02/20[address] Please note that all CT scans at this facility use dose modulation, iterative reconstruction, and/or weight-based dosing when appropriate to reduce radiation dose to as low as reasonably achievable. Dictated by Porfirio Kaur MD @ 06/02/2023 2:25:17 PM CTA head and neck: Radiologist's impression: Preliminary Report: CTA Head and Neck: No large vessel occlusions, severe stenoses, evidence of dissection, or intracranial aneurysm identified. Read by:Ever Cates MD @ 06/02/2023 16:43:22 ECG Data Attestation: I personally reviewed and interpreted this ECG as follows: Prior ECG tracings: available for review Interpretation: Been cuticular paced rhythm with a rate 50 beats per minute, no ST or T-wave abnormalities. Appropriate discordance. Appears similar to previous EKG on file Discharge Plan Discharge Clinical Impression: Brain TIA Patient Disposition: Admitted As Observation Discharge Location: [facility] Condition: Stable
[2023-06-02] MEDS: HEPARIN 25,000 UNIT/500 ML BAG 20 UNIT IV (16:47)
[2023-06-02] MEDS: HEPARIN 5,000 UNIT/0.5 ML INJ 4000 UNIT IVP (16:49)
[2023-06-02 16:50] LABS: Partial Thromboplastin Time* 35 Seconds (23-33)
[2023-06-02] MEDS: 0.9 % SODIUM CHLORIDE 1000 ml 1,000 ML IV (16:50)
[2023-06-02 17:56] LABS: Troponin I* 0.06 ng/mL (0.01-0.04)
--- NOTE | 2023-06-02 19:18 | ED.NURSE ---
Patient transported to floor with heparin infusion via wheelchair. Standing scale was placed in room. Attempted to get standing scale however IV line was too short and got pulled from patient arm.
[2023-06-02 20:53] LABS: INR 1.84 (0.91-1.10); Prothrombin Time 22.6 Seconds
[2023-06-02 21:06] LABS: Troponin I* 0.05 ng/mL (0.01-0.04)
--- NOTE | 2023-06-02 21:07 | P.IMHP_ITS ---
Hospitalist- H&P: HPI History of Present Illness Date Seen: 06/02/23 Chief complaint: L arm spasms Narrative: Sean Recio is a 77 year old male past medical history significant for atrial fibrillation status post pacemaker, aortic valve replacement on chronic anticoagulation, CKD, hypertension, spastic bladder, GERD, kidney stones, hematuria, JOCELINE on BiPAP is admitted to the medical floor from the ED for further management suspected TIA. Patient reports shortly before noon today he noticed that his left upper extremity was spastic, moving on its own without his control. He reports at 1 point his left hand reached over and grabbed his wound right hand and squeezed it. It was tremulous at times. He reports sensations of the left arm feeling wet or having a fan below on it. All of this lasted approximately 30 minutes. During this time he had no facial droop or speech difficulties. No other extremities were affected. He denies recent headaches or dizziness. He does have poor balance and uses a walker for stabilization. He denies recent fevers chills or sweats. Denies recent nausea vomiting. Denies change in bowels or urination. He does have a history of hematuria with kidney stones and recent laser surgery in December. He takes Coumadin for his aortic valve and admits he tries to keep his INR on the lower side of 2 to keep clots at a minimum. Lives at home with his , retired. ED provider discussed with Neurology, Dr. Aguilar, suspecting TIA in setting of subtherapeutic INR, recommending local admission for bridging until INR within goal 2-3. As patient has a pacemaker, not a candidate for MRI. Review of Systems Narrative: REVIEW OF SYSTEMS: Complete review of systems performed and negative unless otherwise stated in HPI or below. PFSH PFS Medical History Hematuria ?R31.9 - Hematuria, unspecified (ICD-10) Contusion of knee ?S80.00XA - Contusion of unspecified knee, initial encounter (ICD-10) Surgical History History of aortic valve replacement ?Z95.2 - Presence of prosthetic heart valve (ICD-10) Status post left hip replacement ?Z96.642 - Presence of left artificial hip joint (ICD-10) History of sinus surgery ?Z98.890 - Other specified postprocedural states (ICD-10) History of thumb surgery ?Z98.890 - Other specified postprocedural states (ICD-10) Social History Smoking Status: Never smoker Do you use any of these nicotine containing products: None Second hand tobacco smoke exposure: No How often do you have a drink containing alcohol: never AUDIT-C Alcohol total score: 0 Non-prescribed substance use: denies use Little interest or pleasure in doing things: several days Feeling down, depressed, or hopeless: several days service: Yes Meds Home Medications and Allergies Home Medications Medication Instructions Recorded Confirmed Type ascorbic acid (vitamin C) 500 mg 500 mg PO DAILY 06/24/22 05/26/23 History capsule calcium carbonate 430 mg calcium 430 mg PO DAILY 06/24/22 05/26/23 History (1,000 mg) chewable tablet fluticasone propionate 50 1 spray intranasal DAILY PRN 06/24/22 05/26/23 History mcg/actuation nasal spray,suspension (Flonase Allergy Relief) omega 5-vub-xes-fish oil 60 mg-90 1 cap PO DAILY 06/24/22 05/26/23 History mg-500 mg capsule (Fish Oil) potassium citrate 10 mEq (1,080 20 meq PO BID 06/24/22 05/26/23 History mg) tablet,extended release Allergies Allergy/AdvReac Type Severity Reaction Status Date / Time azithromycin AdvReac Verified 05/26/23 10:39 [From Zithromax Z-Neftaly] Exam Narrative: Exam Narrative: PHYSICAL EXAM General: Very pleasant, conversant, NAD HEENT: Normocephalic, atraumatic, sclera white, EOMI, oral mucosa moist Cardiovascular: RRR, S1S2. Left lower extremity +1 pitting edema Pulmonary: CTA bilaterally without rhonchi, rales, expiratory wheezes. No dyspnea on room air Abdominal: Soft, nondistended, NTTP Neurological: Alert, answering questions appropriately, cranial nerves intact, no focal findings currently Extremities: No gross joint deformity or swelling. AROMI. Neurovascularly intact Skin: Warm, dry. Const: Vital Signs, click to edit/add: Vital Signs - 24 hr 06/02/23 13:20 06/02/23 14:17 06/02/23 14:30 Temperature 97.9 F Pulse Rate 50 L 50 L Pulse Rate [Femora l] 55 L Respiratory Rate 20 Blood Pressure Blood Pressure [Ri ght Upper Arm] 109/68 Pulse Oximetry 96 94 91 Oxygen Delivery Me thod Room Air 06/02/23 14:35 06/02/23 14:45 06/02/23 14:47 Temperature Pulse Rate 50 L 50 L 50 L Pulse Rate [Femora l] Respiratory Rate Blood Pressure Blood Pressure [Ri ght Upper Arm] Pulse Oximetry 92 93 92 Oxygen Delivery Me thod 06/02/23 14:55 06/02/23 15:01 06/02/23 15:58 Temperature Pulse Rate 50 L 50 L Pulse Rate [Femora l] Respiratory Rate Blood Pressure 137/79 Blood Pressure [Ri ght Upper Arm] Pulse Oximetry 93 93 Oxygen Delivery Me thod 06/02/23 16:01 06/02/23 16:15 06/02/23 16:30 Temperature Pulse Rate 50 L 50 L 50 L Pulse Rate [Femora l] Respiratory Rate Blood Pressure Blood Pressure [Ri ght Upper Arm] Pulse Oximetry 95 97 95 Oxygen Delivery Me thod 06/02/23 16:45 06/02/23 17:00 06/02/23 17:15 Temperature Pulse Rate 50 L 50 L 50 L Pulse Rate [Femora l] Respiratory Rate Blood Pressure Blood Pressure [Ri ght Upper Arm] Pulse Oximetry 98 95 95 Oxygen Delivery Me thod 06/02/23 17:30 06/02/23 17:45 06/02/23 18:30 Temperature Pulse Rate 50 L 51 L 50 L Pulse Rate [Femora l] Respiratory Rate Blood Pressure Blood Pressure [Ri ght Upper Arm] Pulse Oximetry 95 95 93 Oxygen Delivery Me thod 06/02/23 19:15 Temperature Pulse Rate Pulse Rate [Femora l] Respiratory Rate 16 Blood Pressure Blood Pressure [Ri ght Upper Arm] Pulse Oximetry 95 Oxygen Delivery Me thod Room Air Hospitalist - H&P: Result Labs Labs: Short CBC 06/02/23 06/02/23 06/02/23 Range/Units 14:12 14:12 14:12 WBC 7.34 Cancelled (4.50-11.00) K/uL Hgb 17.3 Cancelled (13.5-17.5) gm/dL Hct 52.4 (37.0-53.0) % Plt Count (140-440) K/uL 06/02/23 06/02/23 Range/Units 14:12 14:12 WBC (4.50-11.00) K/uL Hgb (13.5-17.5) gm/dL Hct Cancelled (37.0-53.0) % Plt Count 163 Cancelled (140-440) K/uL BMP 06/02/23 14:12 Sodium 138 Potassium 4.3 Chloride 101 Carbon Dioxide 27 BUN 27 Creatinine 1.8 H Glucose 89 Calcium 9.9 Cardiac Enzymes 06/02/23 06/02/23 Range/Units 14:12 16:52 Troponin I 0.06 H* 0.06 H* (0.01-0.04) ng/mL Liver Function 06/02/23 Range/Units 14:12 Total Bilirubin 0.9 (0.1-1.5) mg/dL AST 37 H (12-35) U/L ALT 18 (4-50) U/L Alkaline Phosphatase 96 (40-150) U/L Albumin 4.3 (3.3-5.0) g/dL ECG Attestation: I personally reviewed and interpreted this ECG as follows: Interpretation: Ventricular paced rhythm, rate [address] scan - head: Attestation: I have reviewed the pertinent imaging results. Radiologist's impression: CT head June 30, 2022 Findings: There is no intra-axial or extra-axial fluid collection. There is no mass effect or midline shift. There is age-related cortical atrophy with moderate sulcal widening and ex vacuo dilatation of the lateral ventricles. There are chronic small vessel disease changes in the subcortical and periventricular white matter without lost schneider-white differentiation. The orbits and their contents are grossly within normal limits. The bony calvarium is grossly intact. The paranasal sinuses are clear. The mastoid air cells are well aerated. Impression: 1. Age-related changes of the brain without acute intracranial abnormality. CTA neck: Attestation: I have reviewed the pertinent imaging results. Radiologist's impression: Formal read not available on admission Assessment and Plan Assessment and plan (1) Brain TIA: Problem comment: -affecting left upper extremity, lasting approximately 30 minutes, resolved. Has remained asymptomatic -CT negative for acute intracranial abnormalities. Troponin 0.06 - 0.06 - 0.05, EKG shows ventricular paced rhythm, rate 50. -ED provider discussed with Neurology, Dr. Aguilar, suspecting TIA in setting of subtherapeutic INR, 1.84. Recommending local admission with bridging until INR within goal 2-3. No need for MRI currently (patient has a pacemaker). Heparin initiated in ED. Coumadin 6 mg p.o. tonight - pharmacy to manage -cardiac monitoring -TTE ordered (previous echo 11/2019 showing normal global systolic function with an EF of 60-70%) -lipid panel, A1c ordered -neurochecks -SCDs -PT/OT consults -follow-up with Neurology tomorrow after completion of tests for further outpa tient recommendations Status: Acute (2) Atrial fibrillation: Problem comment: -s/p pacemaker placement -continue metoprolol for rate control -telemetry Status: Acute (3) Chronic kidney disease (CKD): Problem comment: -creatinine 1.8, previously 2.1 -avoid nephrotoxic medications, continue to monitor Status: Acute (4) Hypertension: Problem comment: -continue metoprolol Status: Acute (5) History of aortic valve replacement: Problem comment: Mechanical valve, on life long anticoagulation 2006 -subtherapeutic INR 1.84. Bridging with heparin. Pharmacy to manage Coumadin dosing. 6 mg tonight per usual dose Status: Acute (6) Obstructive sleep apnea treated with BiPAP: Problem comment: -patient brought his BiPAP Status: Acute (7) Edema: Problem comment: -continue furosemide, elevation Status: Acute Plan CODE: Full VTE PPX: Warfarin, bridging with heparin Disposition: Observation
[2023-06-02] MEDS: WARFARIN 3 MG TABLET 6 MG PO (22:26)
[2023-06-02] MEDS: OMEPRAZOLE 20 MG CAPSULE DR PO (22:27)
[2023-06-02] MEDS: oxyBUTYnin chloride 5 MG TAB.ER.24 30 MG PO (22:28)
[2023-06-03] MEDS: ACETAMINOPHEN 325 MG TABLET PO (00:32)
[2023-06-03] MEDS: diphenhydrAMINE 25 MG CAPSULE PO (00:34)
[2023-06-03 05:17] VITALS: BP 132/76; PULSE 50; RESP 18; O2SAT 96
[2023-06-03 05:27] LABS: Hemoglobin* 16.3 gm/dL (13.5-17.5); Mean Corpuscular HGB Conc 33 gm/dL (32-36); Mean Corpuscular Hemoglobin 32 pg (26-34); Mean Corpuscular Volume 96 fL (80-100); Platelet Count* 154 K/uL (140-440); White Blood Count* 6.91 K/uL (4.50-11.00)
[2023-06-03 05:33] LABS: Slide Review Reflex No
[2023-06-03 05:41] LABS: INR 1.94 (0.91-1.10); Prothrombin Time 23.5 Seconds
[2023-06-03 06:27] LABS: Partial Thromboplastin Time* 122 Seconds (23-33)
[2023-06-03 06:52] LABS: Chloride* 104 mmol/L (96-114)
[2023-06-03 06:53] LABS: Sodium* 137 mmol/L (135-149)
[2023-06-03 06:55] LABS: Anion Gap 8 mEq/L (7-15); Carbon Dioxide* 25 mmol/L (20-32); Cholesterol* 163 mg/dL (90-199); Creatinine* 1.6 mg/dL (0.5-1.5); Est. Creatinine Clearance* 39.29; Estimated Glomerular Filt Rate 44 ml/min
[2023-06-03 06:56] LABS: Blood Urea Nitrogen* 24 mg/dL (7-30); Calcium* 9.4 mg/dL (8.4-10.6); Glucose* 96 mg/dL (60-115); HDL Cholesterol* 36 mg/dL (>=40); LDL Cholesterol Calculated 100 mg/dL (<100); Triglycerides* 137 mg/dL (40-149)
[2023-06-03 07:06] LABS: Hemoglobin A1C* 5.4 % (0-5.6)
--- NOTE | 2023-06-03 07:14 | PC.NURSE ---
Pt pleasant and talkative. VSS heparin gtt on til 645 this am when turned off per MD for PTT of 122. Pt up with assist and wheeled walker. Voiding without difficulty.
[2023-06-03 07:29] VITALS: BP 139/83; PULSE 50; RESP 18; TEMP 36.4; O2SAT 97
[2023-06-03 07:34] VITALS: PULSE 50
[2023-06-03] MEDS: TAMSULOSIN HCL 0.4 MG CAPSULE PO (08:34)
[2023-06-03] MEDS: POTASSIUM CITRATE 10 MEQ TABLET.ER 20 MEQ PO (08:34)
[2023-06-03] MEDS: SODIUM CHLORIDE 0.9 % (FLUSH) 10 ML SYRINGE 5 ML IVF (08:35)
[2023-06-03] MEDS: FUROSEMIDE 20 MG TABLET PO (08:35)
[2023-06-03] MEDS: METOPROLOL SUCCINATE (XL) 100 MG TAB PO (08:42)
[2023-06-03 09:47] LABS: Appearance Urine Slightly Cloudy (Clear); Bilirubin Urine Negative (Negative); Blood Urine 2+ (Negative); Color Urine Yellow (Yellow); Glucose Urine Negative (Negative); Ketones Urine Negative (Negative); Leukocyte Esterase Urine Trace (Negative); Nitrite Urine Negative (Negative); Protein Urine 1+ (Negative); Urobilinogen Urine 0.2 (0.2-1.0); pH Urine 6.5 (5.0-8.5)
[2023-06-03 10:23] LABS: Bacteria Urine Few; Other Sediment Urine FEW YEAST; RBC Urine 25-50 (0-2); Squamous Epithelial Cell Urine Few (None-Few); WBC Urine 25-50 (0-5)
[2023-06-03 10:45] VITALS: BP 120/72; PULSE 50; RESP 16; TEMP 36.7; O2SAT 94
--- NOTE | 2023-06-03 11:52 | NUTR.NU ---
Nutrition screen complete related to RN consult for skin risk. Patient's skin is intact. Patient is admitted with TIA. He is tolerating a regular diet with intake of one meal at 100%. He reports no difficulty chewing, swallowing or coughing with eating. He reports a good appetite. Weight is 276.5#, height is 70. Per weight history, Patient has had 19# weight loss since January. This is not significant. Overall, weight history shows fluctuation between 275-295#. No nutrition needs at this time. RDN to continue to monitor and follow up as needed.
--- NOTE | 2023-06-03 14:13 | PC.NURSE ---
Pt alert and oriented. Pt independent in room. Pt had no complaints of pain. at bedside. Pt's IV discontinued catheter intact. Pt discharged home with .
--- NOTE | 2023-06-04 17:46 | P.DS_ITS ---
DS: Providers Provider Date Seen: 06/03/23 Date of admission: 06/02/23 18:38 Primary care physician: Daniel Molina MD Admitting Clinician: Thuy Manzano MD Consults: 06/02/23 20:59 Consult to Occupational Therapy [CONS] Routine Comment: Reason(s) for OT Consult:: Evaluate and Treat Any Restrictions?:: No Restrictions Consult to Physical Therapy [CONS] Routine Comment: Reason(s) for PT Consult:: Evaluate and Treat Any Restrictions?:: No Restrictions Attending Physician on discharge: Adalberto Silverio MD Date of Discharge: 06/03/23 DS: Diagnosis Discharge Diagnosis (1) Focal seizure: Status: Acute Problem details: -Differential diagnosis: focal seizure with retained awareness, migraine equivalent, TIA, psychogenic non-epileptic seizure -transient rhythmic jerking of left arm, lasting approximately 20 minutes, resolved. Has remained asymptomatic. -CT negative for acute intracranial abnormalities. Troponin 0.06 - 0.06 - 0.05, EKG shows ventricular paced rhythm, rate 50. -ED provider discussed with Neurology, Dr. Aguilar, suspecting TIA in setting of subtherapeutic INR, 1.84. Recommending local admission with bridging until INR within goal 2-3. No need for MRI currently (patient has a pacemaker). Heparin initiated in ED. Coumadin 6 mg p.o. tonight - pharmacy to manage -cardiac monitoring -TTE ordered (previous echo 11/2019 showing normal global systolic function with an EF of 60-70%) -lipid panel, A1c ordered -neurochecks normal throughout hospitalization -SCDs -PT/OT consults demonstrated no residual effects -follow-up with Neurology (2) Brain TIA: Status: Acute Problem details: -Differential diagnosis: focal seizure with retained awareness, migraine equivalent, TIA, psychogenic non-epileptic seizure -transient rhythmic jerking of left arm, lasting approximately 20 minutes, resolved. Has remained asymptomatic. -CT negative for acute intracranial abnormalities. Troponin 0.06 - 0.06 - 0.05, EKG shows ventricular paced rhythm, rate 50. -ED provider discussed with Neurology, Dr. Aguilar, suspecting TIA in setting of subtherapeutic INR, 1.84. Recommending local admission with bridging until INR within goal 2-3. No need for MRI currently (patient has a pacemaker). Heparin initiated in ED. Coumadin 6 mg p.o. tonight - pharmacy to manage -cardiac monitoring -TTE ordered (previous echo 11/2019 showing normal global systolic function with an EF of 60-70%) -lipid panel, A1c ordered -neurochecks normal throughout hospitalization -SCDs -PT/OT consults demonstrated no residual effects -follow-up with Neurology (3) Hypertension: Status: Acute Problem details: -continue metoprolol (4) History of aortic valve replacement: Status: Acute Problem details: -Mechanical valve, on life long anticoagulation 2006, goal INR 2-3 -subtherapeutic INR 1.84. Bridging with heparin. Pharmacy to manage Coumadin dosing. 6 mg tonight per usual dose (5) Obstructive sleep apnea treated with BiPAP: Status: Acute Problem details: -patient brought his BiPAP -he is actively working with his sleep specialist to address on-going concerns with multiple episodes of hypopnea (6) Atrial fibrillation: Status: Acute Problem details: -s/p pacemaker placement -continue metoprolol for rate control -telemetry (7) Chronic kidney disease (CKD): Status: Acute Problem details: -creatinine 1.8, previously 2.1 -avoid nephrotoxic medications, continue to monitor (8) Physical deconditioning: Status: Acute Problem details: -outpatient physical therapy referral for conditioning DS: Summary Hospital Course Hospital Course: 77-year-old man presented to the hospital after a 20 minute transient episode of left arm jerking without change in level of consciousness or awareness. For details of findings and hospitalization please see diagnoses above. Status at Discharge Functional status at discharge: independent ambulation Overall status at discharge: patient is back to baseline Time Spent with Patient Time attestation: Total time spent providing and/or coordinating discharge services: Time spent: Greater than 30 minutes Exam Narrative: Exam Narrative: General: Very pleasant, conversant, NAD HEENT: Normocephalic, atraumatic, sclera white, EOMI, oral mucosa moist Cardiovascular: RRR, S1S2. Left lower extremity +1 pitting edema Pulmonary: CTA bilaterally without rhonchi, rales, expiratory wheezes. No dyspnea on room air Abdominal: Soft, nondistended, NTTP Neurological: Alert, answering questions appropriately, cranial nerves intact, no focal findings currently Taking into consideration patient's chronic left shoulder pain, upper extremity strength testing is equal and symmetric without deficits. Normal rapid alternating motions as well. Extremities: No gross joint deformity or swelling. AROMI. Neurovascularly intact Skin: Warm, dry. DS: Data Data Completed and Pending Labs on day of discharge: Preliminary micro results at discharge 06/03/23 Unknown Urine Culture - Preliminary Urine,Clean Catch Gram negative amara Imaging CT scan - head: Attestation: I have reviewed the pertinent imaging results. Radiologist's impression: Impression: 1. Age-related changes of the brain without acute intracranial abnormality. CT angiogram of head: Attestation: I have reviewed the pertinent imaging results. Radiologist's impression: CT angiogram of head and neck FINDINGS: There is no significant carotid artery stenosis or dissection. There is no significant vertebral artery stenosis or dissection. The soft tissues of the neck are within normal limits. Degenerative changes are noted in the cervical spine. IMPRESSION: No significant carotid or vertebral artery stenosis or dissection. Discharge Plan Discharge Disposition: Home, Self-Care Date of Admission: 06/02/23 18:38 Attending Provider on Discharge: Adalberto Silverio Primary Care Provider: Daniel Molina Condition: Improved Anticipated Discharge Date/Time: 06/03/23 13:30 Discharge Medications: New omeprazole 20 mg Capsule,Delayed Release(Dr/Ec) 20 mg PO Q24H 30 Days Qty: 30 0RF warfarin 2 mg tablet See Rx Instructions .ROUTE .COMPLEX Qty: 90 2RF Rx Instructions: 6 mg (3 tabs) orally once daily, except 8 mg (4 tabs) orally every Tuesday. Continued potassium citrate 10 mEq (1,080 mg) tablet extended release 20 meq PO BID Patient Comments: TAKE 2 TABLETS BY MOUTH TWICE DAILY WITH MEALS ascorbic acid (vitamin C) 500 mg capsule 500 mg PO DAILY omega 7-pjv-lnq-fish oil [Fish Oil] 60-90-500 mg capsule 1 cap PO DAILY calcium carbonate 430 mg calcium (1,000 mg) tablet,chewable 430 mg PO DAILY fluticasone propionate [Flonase Allergy Relief] 50 mcg/actuation spray,suspension 1 spray intranasal DAILY PRN Rx Instructions: administer into each nostril omeprazole 20 mg capsule,delayed release(DR/EC) 20 mg PO DAILY metoprolol succinate 100 mg tablet extended release 24 hr 100 mg PO BID Qty: 180 3RF tamsulosin 0.4 mg capsule 0.4 mg PO DAILY Qty: 90 3RF Patient Comments: TAKE 1 CAPSULE BY MOUTH DAILY oxybutynin chloride 15 mg tablet extended release 24hr 30 mg PO QDAY Qty: 180 3RF furosemide 20 mg tablet 20 mg PO BID Qty: 180 3RF Discontinued warfarin 2 mg tablet See Rx Instructions PO .ud Qty: 90 3RF Rx Instructions: 2 mg Q T-Th-S-S, to supplement the 6 mg dose orally UD; warfarin 4 mg tablet See Rx Instructions PO .ud Qty: 100 8RF Rx Instructions: 4-8 mg daily, as directed orally UD; also using 2 mg tabs at times, for total 6 mg QM-W-F, and 8 mg QT-Th-S-S Discharge Orders: Discharge Order (Routine); Ordered 06/03/23 Ordered By: Adalberto Silverio Patient Education: Omeprazole (By mouth), Transient Ischemic Attack (DC), New- Onset Seizure in Adults (DC) Additional Instructions: 1. Continue to work with your sleep specialist to address on-going concerns regarding BiPap effectiveness - consider repeat sleep study; 2. Follow-up with Dr. Snider next week, consider referral to neurologist regarding transient episode of left arm jerking without impairment of conscio usness; 3. Arduously strive to maintain INR in goal range of 2-3; 4. Physical therapy outpatient referral to help assess and treat physical deconditioning; 5. Continue to work with all other specialists whom you see. Activity Level: Activity as Tolerated Discharge Diet: Heart Healthy (2 gm sodium, low fat) Follow Up Appointments: Daniel Molina MD [Primary Care Provider] - 06/10/23 12:45 pm Forms: Penemarie K Murphy Info Instructions
== END 2023-06-03 14:10 | disposition home or self-care (01) ==
LOC: ED 17:29 → MEDSURG 18:40
PROVIDERS: Physician Assistant; Admitting Provider Family Medicine; Emergency Provider Student in an Organized Health Care Education/Training Program; PCP Family Medicine; Visit Provider Family Medicine
DX: G45.9 Transient cerebral ischemic attack, unspecified (principal); I48.91 Unspecified atrial fibrillation; I12.9 Hypertensive chronic kidney disease with stage 1 through stage 4 chronic kidney disease, or unspecified chronic kidney disease; N18.9 Chronic kidney disease, unspecified; R60.9 Edema, unspecified; G47.33 Obstructive sleep apnea (adult) (pediatric); R20.0 Anesthesia of skin; R56.9 Unspecified convulsions; R53.81 Other malaise; M25.512 Pain in left shoulder; G89.29 Other chronic pain; R29.898 Other symptoms and signs involving the musculoskeletal system; Z79.01 Long term (current) use of anticoagulants; Z96.642 Presence of left artificial hip joint; Z95.0 Presence of cardiac pacemaker; Z95.2 Presence of prosthetic heart valve; Z87.442 Personal history of urinary calculi; Z87.448 Personal history of other diseases of urinary system; Z98.890 Other specified postprocedural states
CPT/HCPCS: 36415; 70450; 70496; 70498; 80048; 80053; 80061; 81001; 83036; 84484; 85025; 85027; 85610; 85730; 87086; 87186; 87631; 93005; 96361; 96374; 97112; 97116; 97161; 97165; 99283; 99285; G0378; A9270; J1644; J7030; Q9967

== ENCOUNTER 2023-06-30 12:55 | Outpatient (CLI) | payer MEDICARE, OTHER, SELFPAY ==
--- OUTSIDE RECORDS SUMMARY | 2023-06-30 13:20 | XMS_ITS | Clinical Summary ---
Author Name Unknown Organization [facility] Address [place], [place] [address] Care Team Providers Care Lithographed Plate Inspector Name Role Phone Marily Calvert Primary Care Provider [phone] Allergies Active Allergy Reactions Criticality Noted Date Comments Azithromycin *Unknown 10/13/2016 Medications Medication Sig Dispensed Refills Start Date End Date Status atenolol (TENORMIN) 50 mg tablet Take 50 mg by mouth once daily. Take 1 and 1/2 tabs daily 0 Active fexofenadine (MELVIN) 180 mg tablet Take 180 mg by mouth once daily with a meal. 0 Active fluticasone (50 mcg per actuation) nasal solution (FLONASE) Inhale 2 Sprays into both nostrils once daily. 0 Active pantoprazole (PROTONIX) 40 mg delayed-release tablet Take 40 mg by mouth once daily. 0 Active amoxicillin (AMOXIL) 500 mg capsule Take 500 mg by mouth 3 times daily. 4 caps 30-60 minutes before procedure 0 Active oxybutynin XL (DITROPAN XL) 10 mg CR tablet 10 mg once daily. 0 Active triamcinolone-emollie nt [id number] 0.1 % topical cream Apply 1 Pump topically to affected area(s) 3 times daily if needed. 0 Active Calcium-Cholecalcifer ol, D3, 600 mg(1,500mg) -400 unit cap Take 1 tablet by mouth 2 times daily. 0 Active WARFARIN SODIUM (WARFARIN ORAL) Take 8 mg by mouth. 5 days a week 0 Active WARFARIN SODIUM (WARFARIN ORAL) Take 9 mg by mouth. 2 days a week 0 Active FA/MV,CA,IRON,MIN/LYC OPENE/LUT (MULTIVITAL ORAL) Take 1 tablet by mouth once daily. 0 Active desonide 0.05% (TRIDESILON 0.05% OINTMENT) 0.05 % ointment Apply 1 Pump topically to affected area(s) 3 times daily if needed for Other (Specify). 0 Active Encounters Date Type Department Care Team Description 06/30/2023 1:00 PM QUALITY COORDINATOR Orders Only [facility] at [facility] & [address] [address] <No scans attached> from Last 3 Months Social History Tobacco Use Types Packs/Day Years Used Date Smoking Tobacco: Never Alcohol Use Standard Drinks/Week Comments No 0 (1 standard drink = 0.6 oz pur e alcohol) Sex and Gender Information Value Date Recorded Sex Assigned at Not on file Gender Identity Not on file Sexual Orientation Not on file Obstetrics History Last Filed Vital Signs Vital Sign Reading Time Taken Comments Blood Pressure 175/89 10/21/2016 12:30 PM CDT Pulse 56 10/21/2016 12:30 PM CDT Temperature 36.9 ??C (98.4 ??F) 10/21/2016 9:13 AM CD T Respiratory Rate 16 10/21/2016 12:30 PM CDT Oxygen Saturation 93% 10/21/2016 12:30 PM CDT Inhaled Oxygen Concentration - - Weight 144.7 kg (319 lb) 10/08/2010 2:09 PM CDT Height 177.8 cm (5' 10) 10/21/2016 9:13 AM CDT Body Mass Index - - Plan of Treatment Health Maintenance Due Date Last Done Comments COVID-19 vaccine series (#1) 05/02/1946 Tdap 10/31/1955 Depression screening for age 12+ 1956 BMI (ht and wt on same day) for age 18+ 1962 Hepatitis C screening for age 18-79 1962 Tetanus booster 1964 Zoster (shingles) series for age 50+ (1 of 2) 10/30/18 95 Pneumococcal series for age 65+ (1 of 1 - PCV) 010 Influenza for age 65+ 02/04/2023 Advance Directives Latest Code Status on File Code Status Date Activated Date Inactivated Comments Full Code 10/21/2016 11:59 AM 10/21/2016 3:09 PM Code Status History Code Status Date Activated Date Inactivated Comments Full Code 10/21/2016 11:00 AM 10/21/2016 11:59 AM Care Teams Lithographed Plate Inspector Relationship Specialty Start Date End Date Marily Calvert MBBS PCP - General Internal Medicine 10/08/10
--- OUTSIDE RECORDS SUMMARY | 2023-06-30 13:20 | XMS_ITS | Clinical Summary ---
Author Name Unknown Organization [facility] Address [address] [place] [address] Care Team Providers Care Hse Advisor Name Role Phone William Magallon MD Primary Care Provider [phone] Source Comments You are receiving this document as you are listed as the primary care provider,follow-up provider, or the patient has been referred to you for consultation.This is in compliance with the Medicare and[facility] EHR Incentive Program,which states Providers who transition their patient to another setting of careor provider of care or refers their patient to another provider of care shouldprovide summary care record for each transition of care or referral. [facility] Allergies Active Allergy Reactions Criticality Noted Date Comments Azithromycin Breathing Difficulty ,Muscle Aches/Weakness,Hypotension High 05/08/2018 Medications Medication Sig Dispensed Refills Start Date End Date Status amoxicillin (AMOXIL) 500 MG capsule Take 4 capsules 1 hour prior to appointment 16 Capsule 0 05/08/2018 Active warfarin (COUMADIN) 4 MG tablet TK 2 TS PO QPM 2 02/14/2018 Active warfarin (COUMADIN) 2 MG tablet TK UTD 3 03/03/2018 Active atenolol (TENORMIN) 50 MG tablet Take 50 mg by mouth. 0 Active Calcium Carb-Cholecalcifer ol (CALCIUM-VITAMIN D3) 600-400 MG-UNIT CAPS Take 1 Tablet by mouth. 0 Active desonide (DESOWEN) 0.05 % cream Apply 1 Application topically. 0 04/09/2014 Active desonide (DESOWEN) 0.05 % ointment Apply topically. 0 Act cristobal DOCOSAHEXAENOIC ACID OR Take 1 Capsule by mouth. 0 05/02/2012 Active fexofenadine (MELVIN) 180 MG tablet Take 1 Tablet by mouth. 0 04/26/2016 Active Flaxseed, Linseed, (FLAXSEED OIL) 1000 MG Take 1 Capsule by mouth. 0 01/04/2013 Active fluticasone (FLONASE) 50 MCG/ACT nasal solution 2 Sprays by Nasal route. 0 04/04/2017 Active FLUAD 0.5 ML JODI ADM 0.5ML IM UTD 0 05/05/2018 A ctive ketoconazole (NIZORAL) 2 % cream Apply topically. 0 04/30/2015 Active metoprolol succinate (TOPROL XL) 100 MG 24 hour release tablet Take 1 Tablet by mouth. 0 02/18/2017 Active metoprolol succinate (TOPROL XL) 100 MG 24 hour release tablet TK 1 T PO D 1 04/04/2018 Active mupirocin (BACTROBAN) 2 % ointment Apply topically. 0 02/05/2010 Active ondansetron (ZOFRAN) 4 MG tablet TK 1 T PO Q 4 H PRN 0 04/17/2018 Activ e oxybutynin (DITROPANXL) 10 MG 24 hour release tablet Take 30 mg by mouth. 0 06/23/2017 Active oxybutynin (DITROPANXL) 10 MG 24 hour release tablet 0 03/03/2018 Active oxyCODONE (ROXICODONE) 5 MG immediate release tablet TK 1-2 TS PO Q 4 H PRN 0 04/18/2018 Active tamsulosin (FLOMAX) 0.4 MG CAPS capsule TK 1 C PO QD 0 04/17/2018 Active triamcinolone acetonide (KENALOG) 0.1 % cream Apply 1 Application topically. 0 03/07/2015 Active amoxicillin (AMOXIL) 500 MG capsule Take by mouth. 0 04/26/2016 Active Active Problems Problem Noted Date Diagnosed Date Hematuria 10/20/2017 Nephrolithiasis 10/20/2017 Knee pain 10/18/2017 Encounter for therapeutic drug monitoring 2017 Body mass index (BMI) of 40.0-44.9 in adult 02/2017 Overview: Body mass index (BMI) 40.0-44.9, adult Rule activated problem due to BMI 40-44 posted on 10/12 at 11:42 CDT. 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 5 Mitral valve insufficiency 03/07/2015 Murmur, heart 03/07/2015 Obstructive sleep apnea syndrome 03/07/2015 Osteoarthritis of knee 03/07/2015 Osteoarthritis of hand 03/07/2015 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 03/07/2015 Trigger finger 03/07/2015 Urge incontinence of urine 03/07/2015 Age-related cataract 02/13/2015 Tear film insufficiency 02/13/2015 Debility 04/25/2014 Fracture of shoulder 04/23/2014 Seborrheic keratosis 12/05/2013 Presence of cardiac and vascular implant and gra ft 11/19/2013 Walking difficulty due to lower leg 04/20/2012 Chronic cholecystitis with calculus 10/05/2011 Atrial fibrillation 07/09/2010 Presence of prosthetic heart valve 03/02/2010 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 06/19/2008 Aortic valve stenosis 05/29/2007 Immunizations Name Administration Dates Next Due Flu Vac (3+ yrs) 03/12/1999 Influenza, Unspecified Formulation 03/20/1998, Td 09/21/1995 Social History Tobacco Use Types Packs/Day Years Used Date Smoking Tobacco: Never Smokeless Tobacco: Never Alcohol Use Standard Drinks/Week Comments Never 0 (1 standard drink = 0.6 oz pur e alcohol) AUDIT-C Answer Date Recorded Frequency of Alcohol Consumption Never 09/29/2018 Average Number of Drinks Not on file 04/26/2 019 Frequency of Binge Drinking Not on file 09/05 Sex and Gender Information Value Date Recorded Sex Assigned at Male 08/09/2022 3:35 PM STOCK PARTS INSPECTOR Gender Identity Male 08/09/2022 3:35 PM STOCK PARTS INSPECTOR Sexual Orientation Straight 08/09/2022 3: 35 PM STOCK PARTS INSPECTOR Last Filed Vital Signs Vital Sign Reading Time Taken Comments Blood Pressure 150/73 05/12/2018 12:19 PM STOCK PARTS INSPECTOR Pulse 62 05/08/2018 10:24 AM STOCK PARTS INSPECTOR Temperature - - Respiratory Rate - - Oxygen Saturation - - Inhaled Oxygen Concentration - - Weight - - Height - - Body Mass Index - - Plan of Treatment Health Maintenance Due Date Last Done Comments Hep C Screening (Preventive Services) 1945 Medicare Welcome Visit 1945 COVID-19 Vaccine (#1) 05[birth year]02/1946 Influenza (#1) 2023 03/25/2020, 090 02/2019, 05/05/2018, Additional history exists DTaP/Tdap/Td (4 - Tdap) 10/31/2028 11/01/19, 01/25/2006, 01/25/2006, Additional history exists Cholesterol Discontinued 08/21/1997 Pneumococcal 65+ Yrs Completed 03/07/2015, 04/25/2014, 06/25/2007, Additional history exists Zoster/Shingles Completed 05/12/2019, 02/27/2019 HepA Aged Out No longer eligi ble based on patient's age to complete this topic HepB Aged Out No longer eligi ble based on patient's age to complete this topic Hib Aged Out No longer eligi ble based on patient's age to complete this topic IPV (Polio) Aged Out No longer eligi ble based on patient's age to complete this topic MCV4 Aged Out No longer eligi ble based on patient's age to complete this topic Care Teams Hse Advisor Relationship Specialty [place] [address] [place] [address] PCP - General 05/19/1996
--- OUTSIDE RECORDS SUMMARY | 2023-06-30 13:21 | XMS_ITS | Encounter Summary ---
Author Name Unknown Organization [facility] Address [address] [address] Care Team Providers Care Automotive Salesperson Name Role Phone William Magallon MD Primary Care Provider [phone] Encounter Details Date Type Department Care Team Description 01/06/2000 [place] [address] [place] [address] Social History Tobacco Use Types Packs/Day Years Used Date Smoking Tobacco: Never Assessed Sex and Gender Information Value Date Recorded Sex Assigned at Male 08/09/2022 3:35 PM TAIL PULLER Gender Identity Male 08/09/2022 3:35 PM TAIL PULLER Sexual Orientation Straight 08/09/2022 3: 35 PM TAIL PULLER documented as of this encounter Plan of Treatment Not on file documented as of this encounter Visit Diagnoses Not on filedocumented in this encounter Care Teams Automotive Salesperson Relationship Specialty [place] [address] [place] [address] PCP - General 05/19/1996 documented as of this encounter
--- OUTSIDE RECORDS SUMMARY | 2023-06-30 13:21 | XMS_ITS | Encounter Summary ---
Author Name Unknown Organization [facility] Address [address], [place] [address] Care Team Providers Care Consultant Dietitian Name Role Phone William Magallon MD Primary Care Provider [phone] Encounter Details Date Type Department Care Team Description 07/05/1995 [place] [address] [place] [address] Social History Tobacco Use Types Packs/Day Years Used Date Smoking Tobacco: Never Assessed Sex and Gender Information Value Date Recorded Sex Assigned at Male 08/09/2022 3:35 PM ALTERNATIVE ENERGY TECHNICIAN Gender Identity Male 08/09/2022 3:35 PM ALTERNATIVE ENERGY TECHNICIAN Sexual Orientation Straight 08/09/2022 3: 35 PM ALTERNATIVE ENERGY TECHNICIAN documented as of this encounter Plan of Treatment Not on file documented as of this encounter Visit Diagnoses Not on filedocumented in this encounter Care Teams Consultant Dietitian Relationship Specialty [place] [address] [place] [address] PCP - General 05/19/1996 documented as of this encounter
--- OUTSIDE RECORDS SUMMARY | 2023-06-30 13:21 | XMS_ITS | Encounter Summary ---
Author Name Unknown Organization [facility] Address [address] [address] Care Team Providers Care Videogame Tester Name Role Phone William Magallon MD Primary Care Provider [phone] Encounter Details Date Type Department Care Team Description 11/04/1994 Orders Only Steven Vazquez Social History Tobacco Use Types Packs/Day Years Used Date Smoking Tobacco: Never Assessed Sex and Gender Information Value Date Recorded Sex Assigned at Male 08/09/2022 3:35 PM RESTORATION OFFICER Gender Identity Male 08/09/2022 3:35 PM RESTORATION OFFICER Sexual Orientation Straight 08/09/2022 3: 35 PM RESTORATION OFFICER documented as of this encounter Plan of Treatment Not on file documented as of this encounter Visit Diagnoses Not on filedocumented in this encounter Care Teams Videogame Tester Relationship Specialty [place] [address] [place] [address] PCP - General 05/19/1996 documented as of this encounter
--- OUTSIDE RECORDS SUMMARY | 2023-06-30 13:21 | XMS_ITS | Encounter Summary ---
Author Name Unknown Organization [facility] Address [address] [place] [address] Care Team Providers Care Rug Underlay Machine Operator Name Role Phone William Magallon MD Primary Care Provider [phone] Encounter Details Date Type Department Care Team Description 06/25/1996 [place] [address] [place] [address] Social History Tobacco Use Types Packs/Day Years Used Date Smoking Tobacco: Never Assessed Sex and Gender Information Value Date Recorded Sex Assigned at Male 08/09/2022 3:35 PM REGISTERED NURSE OBSTETRICS Gender Identity Male 08/09/2022 3:35 PM REGISTERED NURSE OBSTETRICS Sexual Orientation Straight 08/09/2022 3: 35 PM REGISTERED NURSE OBSTETRICS documented as of this encounter Plan of Treatment Not on file documented as of this encounter Visit Diagnoses Not on filedocumented in this encounter Care Teams Rug Underlay Machine Operator Relationship Specialty [place] [address] [place] [address] PCP - General 05/19/1996 documented as of this encounter
--- OUTSIDE RECORDS SUMMARY | 2023-06-30 13:21 | XMS_ITS | Encounter Summary ---
Author Name Unknown Organization [facility] Address [address] [place] [address] Care Team Providers Care Call Center Team Leader Name Role Phone William Magallon MD Primary Care Provider [phone] Encounter Details Date Type Department Care Team Description 04/04/1995 [place] [address] [place] [address] Social History Tobacco Use Types Packs/Day Years Used Date Smoking Tobacco: Never Assessed Sex and Gender Information Value Date Recorded Sex Assigned at Male 08/09/2022 3:35 PM BUFFER OPERATOR Gender Identity Male 08/09/2022 3:35 PM BUFFER OPERATOR Sexual Orientation Straight 08/09/2022 3: 35 PM BUFFER OPERATOR documented as of this encounter Plan of Treatment Not on file documented as of this encounter Visit Diagnoses Not on filedocumented in this encounter Care Teams Call Center Team Leader Relationship Specialty [place] [address] [place] [address] PCP - General 05/19/1996 documented as of this encounter
--- OUTSIDE RECORDS SUMMARY | 2023-06-30 13:21 | XMS_ITS | Encounter Summary ---
Author Name Unknown Organization [facility] Address [address] [place] [address] Care Team Providers Care Adolescent Specialist Name Role Phone William Magallon MD Primary Care Provider [phone] Encounter Details Date Type Department Care Team Description 09/26/1998 Orders Only Juan Redman MD [address] [place] [address] Social History Tobacco Use Types Packs/Day Years Used Date Smoking Tobacco: Never Assessed Sex and Gender Information Value Date Recorded Sex Assigned at Male 08/09/2022 3:35 PM VTC TECHNICIAN Gender Identity Male 08/09/2022 3:35 PM VTC TECHNICIAN Sexual Orientation Straight 08/09/2022 3: 35 PM VTC TECHNICIAN documented as of this encounter Plan of Treatment Not on file documented as of this encounter Visit Diagnoses Not on filedocumented in this encounter Care Teams Adolescent Specialist Relationship Specialty [place] [address] [place] [address] PCP - General 05/19/1996 documented as of this encounter
--- OUTSIDE RECORDS SUMMARY | 2023-06-30 13:21 | XMS_ITS | Encounter Summary ---
Author Name Unknown Organization [facility] Address [address] [address] Care Team Providers Care Nurse Technician Name Role Phone William Magallon MD Primary Care Provider [phone] Encounter Details Date Type Department Care Team Description 07/01/1997 [place] [address] [place] [address] Social History Tobacco Use Types Packs/Day Years Used Date Smoking Tobacco: Never Assessed Sex and Gender Information Value Date Recorded Sex Assigned at Male 08/09/2022 3:35 PM SPECTACLE TRUER Gender Identity Male 08/09/2022 3:35 PM SPECTACLE TRUER Sexual Orientation Straight 08/09/2022 3: 35 PM SPECTACLE TRUER documented as of this encounter Plan of Treatment Not on file documented as of this encounter Visit Diagnoses Not on filedocumented in this encounter Care Teams Nurse Technician Relationship Specialty [place] [address] [place] [address] PCP - General 05/19/1996 documented as of this encounter
--- OUTSIDE RECORDS SUMMARY | 2023-06-30 13:21 | XMS_ITS | Encounter Summary ---
Author Name Unknown Organization [facility] Address [address] [address] Care Team Providers Care Trimmer Sawyer Name Role Phone William Magallon MD Primary Care Provider [phone] Encounter Details Date Type Department Care Team Description 07/22/1997 [place] [address] [place] [address] Social History Tobacco Use Types Packs/Day Years Used Date Smoking Tobacco: Never Assessed Sex and Gender Information Value Date Recorded Sex Assigned at Male 08/09/2022 3:35 PM WINDOW SYSTEMS ADMINISTRATOR Gender Identity Male 08/09/2022 3:35 PM WINDOW SYSTEMS ADMINISTRATOR Sexual Orientation Straight 08/09/2022 3: 35 PM WINDOW SYSTEMS ADMINISTRATOR documented as of this encounter Plan of Treatment Not on file documented as of this encounter Visit Diagnoses Not on filedocumented in this encounter Care Teams Trimmer Sawyer Relationship Specialty [place] [address] [place] [address] PCP - General 05/19/1996 documented as of this encounter
--- OUTSIDE RECORDS SUMMARY | 2023-06-30 13:21 | XMS_ITS | Encounter Summary ---
Author Name Unknown Organization [facility] Address [address] [address] Care Team Providers Care Lubricating Specialist Name Role Phone William Magallon MD Primary Care Provider [phone] Encounter Details Date Type Department Care Team Description 12/13/1997 Orders Only Nahum Ernandez, GEOVANYS Social History Tobacco Use Types Packs/Day Years Used Date Smoking Tobacco: Never Assessed Sex and Gender Information Value Date Recorded Sex Assigned at Male 08/09/2022 3:35 PM RENAL DIALYSIS RN Gender Identity Male 08/09/2022 3:35 PM RENAL DIALYSIS RN Sexual Orientation Straight 08/09/2022 3: 35 PM RENAL DIALYSIS RN documented as of this encounter Plan of Treatment Not on file documented as of this encounter Visit Diagnoses Not on filedocumented in this encounter Care Teams Lubricating Specialist Relationship Specialty [place] [address] [place] [address] PCP - General 05/19/1996 documented as of this encounter
--- OUTSIDE RECORDS SUMMARY | 2023-06-30 13:21 | XMS_ITS | Encounter Summary ---
Author Name Unknown Organization [facility] Address [address], [place] [address] Care Team Providers Care Research Food Technologist Name Role Phone William Magallon MD Primary Care Provider [phone] Encounter Details Date Type Department Care Team Description 06/05/1997 [place] [address] [place] [address] Social History Tobacco Use Types Packs/Day Years Used Date Smoking Tobacco: Never Assessed Sex and Gender Information Value Date Recorded Sex Assigned at Male 08/09/2022 3:35 PM FRONT END WEB DESIGNER Gender Identity Male 08/09/2022 3:35 PM FRONT END WEB DESIGNER Sexual Orientation Straight 08/09/2022 3: 35 PM FRONT END WEB DESIGNER documented as of this encounter Plan of Treatment Not on file documented as of this encounter Visit Diagnoses Not on filedocumented in this encounter Care Teams Research Food Technologist Relationship Specialty [place] [address] [place] [address] PCP - General 05/19/1996 documented as of this encounter
--- OUTSIDE RECORDS SUMMARY | 2023-06-30 13:21 | XMS_ITS | Encounter Summary ---
Author Name Unknown Organization [facility] Address [address] [address] Care Team Providers Care Janitorial Assistant Name Role Phone William Magallon MD Primary Care Provider [phone] Encounter Details Date Type Department Care Team Description 08/20/1999 [place] [address] [place] [address] Social History Tobacco Use Types Packs/Day Years Used Date Smoking Tobacco: Never Assessed Sex and Gender Information Value Date Recorded Sex Assigned at Male 08/09/2022 3:35 PM FRONT OFFICE SPEC Gender Identity Male 08/09/2022 3:35 PM FRONT OFFICE SPEC Sexual Orientation Straight 08/09/2022 3: 35 PM FRONT OFFICE SPEC documented as of this encounter Plan of Treatment Not on file documented as of this encounter Visit Diagnoses Not on filedocumented in this encounter Care Teams Janitorial Assistant Relationship Specialty [place] [address] [place] [address] PCP - General 05/19/1996 documented as of this encounter
--- OUTSIDE RECORDS SUMMARY | 2023-06-30 13:21 | XMS_ITS | Encounter Summary ---
Author Name Unknown Organization [facility] Address [address] [place] [address] Care Team Providers Care Clinical Trials Systems Administrator Name Role Phone William Magallon MD Primary Care Provider [phone] Encounter Details Date Type Department Care Team Description 04/04/1998 Orders Only Bill Rosenthal MD [address] [place] [address] Social History Tobacco Use Types Packs/Day Years Used Date Smoking Tobacco: Never Assessed Sex and Gender Information Value Date Recorded Sex Assigned at Male 08/09/2022 3:35 PM SLOT EDITOR Gender Identity Male 08/09/2022 3:35 PM SLOT EDITOR Sexual Orientation Straight 08/09/2022 3: 35 PM SLOT EDITOR documented as of this encounter Plan of Treatment Not on file documented as of this encounter Visit Diagnoses Not on filedocumented in this encounter Care Teams Clinical Trials Systems Administrator Relationship Specialty [place] [address] [place] [address] PCP - General 05/19/1996 documented as of this encounter
--- OUTSIDE RECORDS SUMMARY | 2023-06-30 13:21 | XMS_ITS | Encounter Summary ---
Author Name Unknown Organization [facility] Address [address] [address] Care Team Providers Care Android Framework Developer Name Role Phone William Magallon MD Primary Care Provider [phone] Encounter Details Date Type Department Care Team Description 01/15/1999 Orders Only Nahum Ernandez, GEOVANYS Social History Tobacco Use Types Packs/Day Years Used Date Smoking Tobacco: Never Assessed Sex and Gender Information Value Date Recorded Sex Assigned at Male 08/09/2022 3:35 PM RETAIL ACCOUNT EXECUTIVE Gender Identity Male 08/09/2022 3:35 PM RETAIL ACCOUNT EXECUTIVE Sexual Orientation Straight 08/09/2022 3: 35 PM RETAIL ACCOUNT EXECUTIVE documented as of this encounter Plan of Treatment Not on file documented as of this encounter Visit Diagnoses Not on filedocumented in this encounter Care Teams Android Framework Developer Relationship Specialty [place] [address] [place] [address] PCP - General 05/19/1996 documented as of this encounter
--- OUTSIDE RECORDS SUMMARY | 2023-06-30 13:21 | XMS_ITS | Encounter Summary ---
Author Name Unknown Organization [facility] Address [address] [place] [address] Care Team Providers Care Evp Operations Name Role Phone William Magallon MD Primary Care Provider [phone] Encounter Details Date Type Department Care Team Description 06/04/1996 [place] [address] [place] [address] Social History Tobacco Use Types Packs/Day Years Used Date Smoking Tobacco: Never Assessed Sex and Gender Information Value Date Recorded Sex Assigned at Male 08/09/2022 3:35 PM LOAD MANAGER Gender Identity Male 08/09/2022 3:35 PM LOAD MANAGER Sexual Orientation Straight 08/09/2022 3: 35 PM LOAD MANAGER documented as of this encounter Plan of Treatment Not on file documented as of this encounter Visit Diagnoses Not on filedocumented in this encounter Care Teams Evp Operations Relationship Specialty [place] [address] [place] [address] PCP - General 05/19/1996 documented as of this encounter
--- NOTE | 2023-06-30 13:45 | PC.NURSE ---
20G IV started in right hand. 3ml of diluted Definity given per orthodontic laboratory technician request. Iv removed intact.
[2023-06-30] MEDS: PERFLUTREN LIPID MICROSPHERES 2 ML VIAL IV (13:56)
[2023-06-30] MEDS: SODIUM CHLORIDE 0.9 % (FLUSH) 10 ML SYRINGE IVF (13:57)
== END 2023-06-30 12:56 | disposition home or self-care (01) ==
LOC: RAD 12:56
PROVIDERS: PCP Family Medicine; Visit Provider Family Medicine
DX: I48.91 Unspecified atrial fibrillation (principal); I63.9 Cerebral infarction, unspecified; I51.7 Cardiomegaly; I07.1 Rheumatic tricuspid insufficiency; I34.0 Nonrheumatic mitral (valve) insufficiency
CPT/HCPCS: 93306; Q9957

== ENCOUNTER 2023-09-01 11:10 | Emergency (ER) | payer MEDICARE, OTHER, SELFPAY ==
[2023-09-01 11:13] VITALS: BP 120/70; PULSE 53; RESP 18; TEMP 36.8; O2SAT 96; BMI 36.7
--- NOTE | 2023-09-01 11:29 | ED.GENADULT ---
HPI - General Adult General Date Seen: 09/01/23 Chief complaint: Urogenital Problems, Male Stated complaint: blood in urine Time Seen by Provider: 09/01/23 11:22 History of Present Illness HPI narrative: This is a 77-year-old gentleman with a history of aortic valve replacement (on warfarin), TIA, hypertension, focal seizures, sleep apnea, atrial fibrillation, GERD, previous kidney stones (required laser lithotripsy to be done by Urology at [facility] last summer. Says that the procedure was difficult and had to be divided in the 2 stages. Procedure was complicated by significant trouble with gross hematuria), who presents to the ER today for evaluation of gross hematuria. Patient has been noticing bloody urine intermittently for the past week or maybe 2 weeks. Sometimes the blood is pink tinged, sometimes to frankly bloody and occasionally has had some clots of blood. This morning he had a nickel sized clot of blood that past during his 1st void. He has not had any trouble with urinary obstruction or retention. No abdominal pain, bladder pain, or flank pain. No fever or chills. No known injury. No rash on his penis or genitals. He takes warfarin because of mechanical aortic valve. INR has been therapeutic recently but he did not check it last week. No other unusual bleeding or bruising. Related Data Home Medications Medication Instructions Recorded Confirmed ascorbic acid (vitamin C) 500 mg 500 mg PO DAILY 06/24/22 09/01/23 capsule calcium carbonate 430 mg calcium 430 mg PO DAILY 06/24/22 09/01/23 (1,000 mg) chewable tablet fluticasone propionate 50 1 spray intranasal DAILY PRN 06/24/22 09/01/23 mcg/actuation nasal spray,suspension (Flonase Allergy Relief) omega 3-weu-kjs-fish oil 60 mg-90 1 cap PO DAILY 06/24/22 09/01/23 mg-500 mg capsule (Fish Oil) potassium citrate 10 mEq (1,080 20 meq PO BID 06/24/22 09/01/23 mg) tablet,extended release omeprazole 20 mg capsule,delayed 20 mg PO DAILY 06/03/23 09/01/23 release Previous Rx's Medication Instructions Recorded metoprolol succinate 100 mg 100 mg PO BID #180 tabs 12/20/22 tablet,extended release 24 hr tamsulosin 0.4 mg capsule 0.4 mg PO DAILY #90 caps 03/21/23 oxybutynin chloride 15 mg 30 mg (2 x 15 mg) PO QDAY #180 tabs 05/03/23 tablet,extended release 24 hr furosemide 20 mg tablet 20 mg PO BID #180 tabs 05/26/23 warfarin 2 mg tablet See Rx Instructions .Route 06/03/23 .COMPLEX #90 tabs amoxicillin 500 mg capsule 2,000 mg (4 x 500 mg) PO ONCE #8 06/07/23 caps tamsulosin 0.4 mg capsule (Flomax) 0.4 mg PO DAILY #7 caps 09/01/23 Allergies Allergy/AdvReac Type Severity Reaction Status Date / Time azithromycin AdvReac Verified 09/01/23 11:20 [From Zithromax Z-Neftaly] [facility] Medical History Hematuria ?R31.9 - Hematuria, unspecified (ICD-10) Contusion of knee ?S80.00XA - Contusion of unspecified knee, initial encounter (ICD-10) Surgical History History of aortic valve replacement ?Z95.2 - Presence of prosthetic heart valve (ICD-10) Status post left hip replacement ?Z96.642 - Presence of left artificial hip joint (ICD-10) History of sinus surgery ?Z98.890 - Other specified postprocedural states (ICD-10) History of thumb surgery ?Z98.890 - Other specified postprocedural states (ICD-10) Social History What is your current living situation?: I presently have a place to live Problems where you live: no known problems Problems where you live details: none In the past 12 months, utilities in danger of being shut off: no In past 12 months, lack of transportation kept you from medical appts, meetings, work, or getting things needed for daily living: no In the past 12 mos, have been you worried that your food would run out before you had money to buy more?: never true In the past 12 mos, the food you bought just didn't last and you didn't have money to buy more?: never true Smoking Status: Never smoker Do you use any of these nicotine containing products: None Second hand tobacco smoke exposure: No How often do you have a drink containing alcohol: never How often do you have six or more drinks on one occasion: Never AUDIT-C Alcohol total score: 0 Non-prescribed substance use: denies use Caffeine: Yes How often does anyone, including family, friends and others, physically hurt you: never How often does anyone, including family, friends and others, insult or talk down to you: never How often does anyone, including family, friends and others, threaten you with harm: never How often does anyone, including family, friends and others, scream or curse at you: never Little interest or pleasure in doing things: several days Feeling down, depressed, or hopeless: several days service: Yes Exam Narrative: Exam Narrative: Constitutional: Appears well-developed and well-nourished. Alert. Conversant. Non toxic. HENT: Head: Atraumatic. Nose: Nose normal. Mouth/Throat: Oral mucosa is clear and moist. no trismus Eyes: Conjunctivae normal. EOM normal. Pupils equal, round, and reactive to light. No scleral icterus. Neck: Normal range of motion. Neck supple. No tracheal deviation present. Cardiovascular: Normal rate, regular rhythm. No gallop. No friction rub. Clicking murmur heard. Symmetric radial artery pulses Pulmonary/Chest: Effort normal. No stridor. No respiratory distress. No wheezes. No rales. No rhonchi . No tenderness. Abdominal: Soft. Bowel sounds normal. No distension. No mass. No tenderness. No rebound. No guarding. No CVA tender Musculoskeletal: RUE: Normal range of motion. No tenderness. No deformity LUE: Normal range of motion. No tenderness. No deformity RLE: Normal range of motion. No edema. No tenderness. No deformity LLE: Normal range of motion. No edema. No tenderness. No deformity Neurological: Alert and oriented to person, place, and time. Normal strength. CN II-VII intact. No sensory deficit. GCS eye subscore is 4. GCS verbal subscore is 5. GCS motor subscore is 6. Normal coordination Skin: Skin is warm and dry. No rash noted. No pallor. Normal capillary refill. Psychiatric: Normal mood. Normal affect. Const: Vital Signs, click to edit/add: Vital Signs - 24 hr 09/01/23 11:13 Temperature 98.2 F Pulse Rate [Pulse Oximeter] 53 L Respiratory Rate 18 Blood Pressure [Ri ght Upper Arm] 120/70 Pulse Oximetry 96 Oxygen Delivery Me thod Room Air Course Vital Signs Vital signs: Initial Vital Signs Temperature 98.2 F 09/01/23 11:13 Temperature Source Temporal Artery Scan 09/01/23 11:13 Pulse Rate 53 L 09/01/23 11:13 Respiratory Rate 18 09/01/23 11:13 Blood Pressure 120/70 09/01/23 11:13 Blood Pressure Mean 86 09/01/23 11:13 Blood Pressure Position Sitting 09/01/23 11:13 Pulse Oximetry 96 09/01/23 11:13 Oxygen Delivery Method Room Air 09/01/23 11:13 Vital Signs Temperature 98.2 F 09/01/23 11:13 Pulse Rate 53 L 09/01/23 11:13 Respiratory Rate 18 09/01/23 11:13 Blood Pressure 120/70 09/01/23 11:13 Pulse Oximetry 96 09/01/23 11:13 Oxygen Delivery Method Room Air 09/01/23 11:13 Temperature 98.2 F 09/01/23 11:13 Pulse Rate 53 L 09/01/23 11:13 Respiratory Rate 18 09/01/23 11:13 Blood Pressure 120/70 09/01/23 11:13 Pulse Oximetry 96 09/01/23 11:13 Oxygen Delivery Method Room Air 09/01/23 11:13 Medical Decision Making [facility] Narrative Medical decision making narrative: Very pleasant robust but medically complex 77-year-old gentleman presenting to the ER today with gross hematuria ongoing intermittently for the past couple of weeks. Differential as a cause for the hematuria was broad including urethral trauma or trauma (no history of trauma recent surgery) UTI, bladder tumor, kidney stone, renal trauma (no history of falls), supratherapeutic INR with spontaneous bleeding, among others . workup here in the ER shows evidence for an obstructing right ureteral kidney stone which is likely the cause of the patient's hematuria. Fortunately he is not having any pain from the stone. Urinalysis shows no evidence for infection. He is afebrile. White count normal. INR is therapeutic at 2.85. Hemoglobin is normal, in fact slightly hemoconcentrated likely due to dehydration. No signs of any significant blood loss or exsanguinating hemorrhage from this kidney stone. Kidney function does show elevation in his creatinine up from a baseline of 1.6 up to 1.9. Discussed with urology from [facility]. They were able to review his images. We reviewed the patient's presenting symptoms and lab findings. They feel the patient is safe for close outpatient follow-up in their clinic. They will contact the patient by his phone to set up an appointment to see them in clinic within the next couple of days. They would advise Flomax to help try to facilitate stone passage. Oxycodone if needed for pain. Discussed the plan of care as advised by Urology. Patient and his are in agreement but would prefer to follow-up sooner than next week. Will put him on Flomax. Avoid oxycodone since he is not having any pain and that would might cause side effects. He will continue on his other medications. We reviewed return precautions for immediate return to the ER. Questions answered. Lab Data Labs: Lab Results 09/01/23 09/01/23 Range/Units 12:00 12:10 WBC 9.02 (4.50-11.00) K/uL RBC 5.53 (4.30-5.90) m/uL Hgb 17.8 H (13.5-17.5) gm/dL Hct 52.8 (37.0-53.0) % MCV 96 (80-100) fL MCH 32 (26-34) pg MCHC 34 (32-36) gm/dL RDW Coeff of Mara 13.3 (11.5-15.5) % Plt Count 157 (140-440) K/uL Neut % (Auto) 61.5 (42.0-72.0) % Lymph % (Auto) 27.7 (20-44) % [place]rie % (Auto) 9.0 (0.0-11.0) % Eos % (Auto) 1.7 (0.0-7.0) % Baso % (Auto) 0.1 (0.0-3.0) % Neut # (Auto) 5.55 (1.7-7.0) K/uL Lymph # (Auto) 2.50 (0.90-2.90) K/uL [place]rie # (Auto) 0.80 (0.00-0.90) K/UL Eos # (Auto) 0.15 (0.00-0.50) K/uL Baso # (Auto) 0.01 (0.00-0.30) K/uL Abs Immat Gran (auto) 0.00 (0.00-0.30) K/uL Imm/Tot Granulo (auto) 0.0 % INR 2.85 H (0.91-1.10) Sodium 140 (135-149) mmol/L Potassium 3.9 (3.6-5.1) mmol/L Chloride 101 (96-114) mmol/L Carbon Dioxide 33 H (20-32) mmol/L Anion Gap 6 L (7-15) mEq/L BUN 40 H (7-30) mg/dL Creatinine 1.9 H (0.5-1.5) mg/dL Estimated Creat Clear 33.08 Estimated GFR 36 ml/min Glucose 108 (60-115) mg/dL Calcium 10.2 (8.4-10.6) mg/dL Urine Color Yellow (Yellow) Urine Appearance Cloudy A (Clear) Urine pH 7.0 (5.0-8.5) Ur Specific [place] 1.020 (1.000-1.030) Urine Protein Trace A (Negative) Urine Glucose (UA) Negative (Negative) Urine Ketones Negative (Negative) Urine Blood 3+ A (Negative) Urine Nitrite Negative (Negative) Urine Bilirubin Negative (Negative) Urine Urobilinogen 0.2 (0.2-1.0) Ur Leukocyte Esterase 1+ A (Negative) Urine RBC 50-100 A (0-2) Urine WBC 5-10 A (0-5) Ur Squamous Epith Cells Moderate A (None-Few) Urine Bacteria None (None) Imaging Data CT scan - abdomen: Attestation: I have reviewed the pertinent imaging results. Radiologist's impression: Impression: 1. Minimal right hydronephrosis with 4 x 9 millimeter obstructing calculus in the lower ureter. Additional nonobstructing right renal calculi measuring up to 8 millimeter . Nonobstructing left renal calculi measuring up to 1.7 by 4.0 centimeter. 2. Mild hazy bilateral ground-glass airspace opacities may represent atypical infection or inflammation Discharge Plan Discharge Clinical Impression: Kidney stone on right side, KATHIE (acute kidney injury), Hematuria Patient Disposition: Home, Self-Care Condition: Stable Instructions: Kidney Stones (ED) Additional Instructions: As we discussed, please follow-up with your urologist at [facility] next week. Continue all of your current medications, including her Coumadin. Start adding extra medicine called Flomax which will help relax the your ureter and may help the stone pass. If you get worse, such as if you develop severe pain in your abdomen or back, fever or chills, weakness, if you have worsening blood in your urine or if you are unable to urinate, please return to the ER or go to the ER at [facility] right away. Prescriptions: New tamsulosin [Flomax] 0.4 mg capsule 0.4 mg PO DAILY Qty: 7 0RF No Action potassium citrate 10 mEq (1,080 mg) tablet extended release 20 meq PO BID Patient Comments: TAKE 2 TABLETS BY MOUTH TWICE DAILY WITH MEALS ascorbic acid (vitamin C) 500 mg capsule 500 mg PO DAILY omega 3-exu-vjk-fish oil [Fish Oil] 60-90-500 mg capsule 1 cap PO DAILY calcium carbonate 430 mg calcium (1,000 mg) tablet,chewable 430 mg PO DAILY fluticasone propionate [Flonase Allergy Relief] 50 mcg/actuation spray,suspension 1 spray intranasal DAILY PRN Rx Instructions: administer into each nostril omeprazole 20 mg capsule,delayed release(DR/EC) 20 mg PO DAILY warfarin 2 mg tablet See Rx Instructions .ROUTE .COMPLEX Qty: 90 2RF Rx Instructions: 6 mg (3 tabs) orally once daily, except 8 mg (4 tabs) orally every Tuesday. metoprolol succinate 100 mg tablet extended release 24 hr 100 mg PO BID Qty: 180 3RF tamsulosin 0.4 mg capsule 0.4 mg PO DAILY Qty: 90 3RF Patient Comments: TAKE 1 CAPSULE BY MOUTH DAILY oxybutynin chloride 15 mg tablet extended release 24hr 30 mg PO QDAY Qty: 180 3RF furosemide 20 mg tablet 20 mg PO BID Qty: 180 3RF amoxicillin 500 mg capsule 2,000 mg PO ONCE Qty: 8 1RF Follow Up/Referrals: Daniel Molina MD [Primary Care Provider] - Stand Alone Forms: [employer] Info Instructions
--- NOTE | 2023-09-01 11:54 | CT_ITS ---
Patient: SEYMOUR GOODMAN Facility:?[facility] Patient ID:?[id number] Site Patient ID:?[id number]. Site :?[id number] Study:?CT-Abdomen/Pelvis W/O-09/01/2023 12:29:27 PM Ordering Physician:SANDHYA Final Report: Indication: GROSS HEMATURIA, Flank PAIN, HX OF KIDNEY STONES Technique: Noncontrast CT of the abdomen and pelvis was obtained. Please note that all CT scans at this facility use dose modulation, iterative reconstruction, and/or weight-based dosing when appropriate to reduce radiation dose to as low as reasonably achievable. Comparison: None. Findings: Lower thorax: Partial visualization of postsurgical changes from median sternotomy and AICD leads. Hazy bilateral ground-glass airspace opacities. Aortic valve replacement. Moderate bilateral gynecomastia. Liver and biliary tree: Normal noncontrast appearance. Gallbladder: Status post cholecystectomy. Spleen: Normal noncontrast appearance. Pancreas: Moderate fatty atrophy. Adrenal glands: Normal noncontrast appearance. Kidneys and ureters: Minimal right hydronephrosis with 4 x 9 millimeter obstructing calculus in the lower ureter (2/108, 3/81). Additional nonobstructing right renal calculi measuring up to 8 millimeter (2/63). Nonobstructing left renal calculi measuring up to 1.7 by 4.0 centimeter (2/70). Gastrointestinal tract: Moderate stool burden. No evidence of bowel obstruction. Peritoneal cavity: Nonspecific 1.9 centimeter fatty mass is seen adjacent to the ascending colon (2/72) may represent prior epiploic appendagitis or omental infarct. Bladder: Normal. Pelvic organs: Not well evaluated secondary to streak artifact from adjacent hardware. Moderately enlarged prostate. Vasculature: Mild calcification. Lymph nodes: Normal. Abdominal wall: Moderate fat containing periumbilical hernia. Small fat containing left inguinal hernia. Musculoskeletal: Screw fixated left total hip arthroplasty. Moderate degenerative changes of the right hip. Moderate multilevel degenerative changes of visualized spine. Mild anterolisthesis of L5 on S1. Impression: 1. Minimal right hydronephrosis with 4 x 9 millimeter obstructing calculus in the lower ureter. Additional nonobstructing right renal calculi measuring up to 8 millimeter . Nonobstructing left renal calculi measuring up to 1.7 by 4.0 centimeter. 2. Mild hazy bilateral ground-glass airspace opacities may represent atypical infection or inflammation. Please note that all CT scans at this facility use dose modulation, iterative reconstruction, and/or weight-based dosing when appropriate to reduce radiation dose to as low as reasonably achievable. Dictated by Tank Iglesias MD @ 09/01/2023 12:44:44 PM Signed by:?Tank Iglesias MD @09/01/2023 12:44:44 PM (Electronic Signature)
[2023-09-01 12:07] LABS: Basophils Absolute Auto 0.01 K/uL (0.00-0.30); Basophils Percent Auto 0.1 % (0.0-3.0); Eosinophils Absolute Auto 0.15 K/uL (0.00-0.50); Eosinophils Percent Auto 1.7 % (0.0-7.0); Hematocrit 52.8 % (37.0-53.0); Hemoglobin* 17.8 gm/dL (13.5-17.5); Lymphocytes Percent Auto 27.7 % (20-44); Mean Corpuscular HGB Conc 34 gm/dL (32-36); Mean Corpuscular Hemoglobin 32 pg (26-34); Mean Corpuscular Volume 96 fL (80-100); Neutrophils Absolute Auto 5.55 K/uL (1.7-7.0); Neutrophils Percent Auto 61.5 % (42.0-72.0); Platelet Count* 157 K/uL (140-440); RDW Coefficient of Variation % 13.3 % (11.5-15.5); Red Blood Count 5.53 m/uL (4.30-5.90); White Blood Count* 9.02 K/uL (4.50-11.00)
[2023-09-01 12:10] LABS: Slide Review Reflex No
[2023-09-01 12:19] LABS: Chloride* 101 mmol/L (96-114); Potassium* 3.9 mmol/L (3.6-5.1); Sodium* 140 mmol/L (135-149)
[2023-09-01 12:22] LABS: Anion Gap 6 mEq/L (7-15); Blood Urea Nitrogen* 40 mg/dL (7-30); Carbon Dioxide* 33 mmol/L (20-32); Creatinine* 1.9 mg/dL (0.5-1.5); Est. Creatinine Clearance* 33.08; Estimated Glomerular Filt Rate 36 ml/min
[2023-09-01 12:23] LABS: Calcium* 10.2 mg/dL (8.4-10.6); Glucose* 108 mg/dL (60-115)
[2023-09-01 12:26] LABS: INR 2.85 (0.91-1.10); Prothrombin Time 32.1 Seconds
[2023-09-01 12:26] LABS: Appearance Urine Cloudy (Clear); Bilirubin Urine Negative (Negative); Blood Urine 3+ (Negative); Color Urine Yellow (Yellow); Glucose Urine Negative (Negative); Ketones Urine Negative (Negative); Leukocyte Esterase Urine 1+ (Negative); Nitrite Urine Negative (Negative); Protein Urine Trace (Negative); Urobilinogen Urine 0.2 (0.2-1.0)
[2023-09-01 12:35] LABS: RBC Urine 50-100 (0-2); Squamous Epithelial Cell Urine Moderate (None-Few)
== END 2023-09-01 14:52 | disposition home or self-care (01) ==
PROVIDERS: Emergency Provider Emergency Medicine; PCP Family Medicine
DX: N20.0 Calculus of kidney (principal); N17.9 Acute kidney failure, unspecified; R31.9 Hematuria, unspecified
CPT/HCPCS: 36415; 74176; 80048; 81001; 85025; 85610; 87086; 99284

== ENCOUNTER 2024-02-03 12:57 | Emergency (ER) | payer MEDICARE, OTHER, SELFPAY ==
[2024-02-03 13:03] VITALS: BP 123/68; PULSE 49; RESP 16; TEMP 37.3; O2SAT 94; BMI 35.2
--- NOTE | 2024-02-03 13:18 | CRLHL7_ITS ---
For Patients: As a result of the Century Cures Act, medical imaging exams and procedure reports are released immediately into your electronic medical record. You may view this report before your referring provider. If you have questions, please contact your health care provider. INDICATION: Hematuria TECHNIQUE: Axial images were obtained from the diaphragm to the pubic symphysis. Reformats were obtained in the coronal and sagittal plane. IV Contrast: None Oral Contrast: None COMPARISON: Abdomen and pelvis CT 06/24/2022 FINDINGS: Lower chest: Right gynecomastia. Discoid atelectasis right middle lobe. Pacemaker leads are partially included on the exam. Status post aortic valve replacement. Liver: Unremarkable. Normal in size and attenuation. No masses. Gallbladder and bile ducts: Status post cholecystectomy. Spleen: Unremarkable. Normal in size without mass. Pancreas: Pancreatic atrophy. Adrenal glands: Unremarkable. No nodules. Kidneys: Nephrolithiasis with mild right renal cortical atrophy. No definite hydronephrosis, however there is a 3 millimeter distal right ureteral stone (3, 75). Vasculature: Atherosclerosis without abdominal aortic aneurysm. GI tract: Fat containing umbilical hernia. The stomach is unremarkable. No dilated loops of large or small intestine. Pelvis: Moderate prostatic enlargement. Bones: Status post left total hip replacement. Degenerative disc disease lumbar spine. 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 IMPRESSION: 1. Nephrolithiasis without hydronephrosis, however there is a 3 millimeter distal right ureteral stone. 2. Moderate enlargement of the prostate. 3. Degenerative disc disease L5-S1 with grade 1 anterolisthesis. Please note that all CT scans at this facility use dose modulation, iterative reconstruction, and/or weight-based dosing when appropriate to reduce radiation dose to as low as reasonably achievable. Dictated by Sin Rowland MD @ 02/03/2024 1:51:15 PM (Electronically Signed)
[2024-02-03 13:30] LABS: Appearance Urine Cloudy (Clear); Bilirubin Urine 1+ (Negative); Blood Urine 3+ (Negative); Color Urine Red (Yellow); Glucose Urine Negative (Negative); Ketones Urine Trace (Negative); Leukocyte Esterase Urine 3+ (Negative); Nitrite Urine Negative (Negative); Protein Urine 2+ (Negative); Specific Gravity Urine 1.015 (1.000-1.030); Urobilinogen Urine 0.2 (0.2-1.0); pH Urine 6.5 (5.0-8.5)
[2024-02-03 13:39] LABS: RBC Urine >100 (0-2)
[2024-02-03 13:40] LABS: Bacteria Urine Few; WBC Urine 25-50 (0-5)
--- NOTE | 2024-02-03 13:41 | ED.GENADULT ---
HPI - General Adult General Date Seen: 02/03/24 Chief complaint: Urogenital Problems, Male Stated complaint: blood in urine Time Seen by Provider: 02/03/24 13:15 Source: patient, family, RN notes reviewed and old records reviewed Mode of arrival: ambulatory Limitations: no limitations History of Present Illness HPI narrative: Patient is a 78-year-old male who is anticoagulated on Coumadin secondary to aortic valve replacement, history of kidney stones, seen here in August of this year with hematuria, no significant pain, had a 1 cm stone at that time which was managed thereafter at [facility]. He says for period of time he was fine but over the past several weeks has developed intermittent gross hematuria. He denies abdominal or back pain, fevers, chills, dysuria although he occasionally has some burning pain with urination that he associates with having a kidney stone. He also notes that he has been constipated for the past several days. He has been eating prunes to try and manage that but thus far has not had a bowel movement. He has not had nausea or vomiting. He has at times felt like it is a little difficult to void, but today feels that he has been urinating without significant difficulty. Related Data Home Medications ?Medication ?Instructions ?Recorded ?Confirmed ascorbic acid (vitamin C) 500 mg 500 mg PO DAILY 06/24/22 02/03/24 capsule calcium carbonate 430 mg PO DAILY 06/24/22 02/03/24 fluticasone propionate 50 1 spray intranasal DAILY PRN 06/24/22 02/03/24 mcg/actuation nasal spray,suspension (Flonase Allergy Relief) omega 9-fmz-mum-fish oil 60 mg-90 1 cap PO DAILY 06/24/22 02/03/24 mg-500 mg capsule (Fish Oil) potassium citrate 10 mEq (1,080 20 meq PO BID 06/24/22 02/03/24 mg) tablet,extended release omeprazole 20 mg capsule,delayed 20 mg PO DAILY 06/03/23 02/03/24 release atorvastatin 40 mg tablet 40 mg PO DAILY 02/03/24 02/03/24 hydrochlorothiazide 12.5 mg tablet 12.5 mg PO DAILY 02/03/24 02/03/24 Previous Rx's ?Medication ?Instructions ?Recorded tamsulosin 0.4 mg capsule 0.4 mg PO DAILY #90 caps 03/21/23 oxybutynin chloride 15 mg 30 mg (2 x 15 mg) PO QDAY #180 tabs 05/03/23 tablet,extended release 24 hr furosemide 20 mg tablet 20 mg PO BID #180 tabs 05/26/23 warfarin 2 mg tablet See Rx Instructions .Route 06/03/23 .COMPLEX #90 tabs tamsulosin 0.4 mg capsule (Flomax) 0.4 mg PO DAILY #7 caps 09/01/23 metoprolol succinate 100 mg 100 mg PO BID #180 tabs 01/19/24 tablet,extended release 24 hr Allergies Allergy/AdvReac Type Severity Reaction Status Date / Time azithromycin AdvReac Verified 02/03/24 13:09 [From Zithromax Z-Neftaly] Review of Systems Status of ROS: Reports: 10 or more systems reviewed and unremarkable except as noted in History and below [facility] Medical History Hematuria ?R31.9 - Hematuria, unspecified (ICD-10) Contusion of knee ?S80.00XA - Contusion of unspecified knee, initial encounter (ICD-10) Surgical History History of aortic valve replacement ?Z95.2 - Presence of prosthetic heart valve (ICD-10) Status post left hip replacement ?Z96.642 - Presence of left artificial hip joint (ICD-10) History of sinus surgery ?Z98.890 - Other specified postprocedural states (ICD-10) History of thumb surgery ?Z98.890 - Other specified postprocedural states (ICD-10) Social History What is your current living situation?: I presently have a place to live Problems where you live: no known problems Problems where you live details: none In the past 12 months, utilities in danger of being shut off: no In past 12 months, lack of transportation kept you from medical appts, meetings, work, or getting things needed for daily living: no In the past 12 mos, have been you worried that your food would run out before you had money to buy more?: never true In the past 12 mos, the food you bought just didn't last and you didn't have money to buy more?: never true Smoking Status: Never smoker Do you use any of these nicotine containing products: None Second hand tobacco smoke exposure: No How often do you have a drink containing alcohol: never How often do you have six or more drinks on one occasion: Never AUDIT-C Alcohol total score: 0 Non-prescribed substance use: denies use Caffeine: Yes How often does anyone, including family, friends and others, physically hurt you: never How often does anyone, including family, friends and others, insult or talk down to you: never How often does anyone, including family, friends and others, threaten you with harm: never How often does anyone, including family, friends and others, scream or curse at you: never Little interest or pleasure in doing things: several days Feeling down, depressed, or hopeless: several days service: Yes Exam Narrative: Exam Narrative: Vital signs as noted above. In general, an alert, well-appearing patient. Head: Normocephalic, atraumatic. Eyes: Pupils are equal reactive. Extraocular movements are full. Conjunctivae are normal. ENT: Mucous membranes are moist. Throat is normal. Neck: Supple without lymphadenopathy. Heart: Bradycardic and regular. Lungs: Clear bilaterally. No increased work of breathing, crackles or wheezes. Abdomen: Soft and nontender. No organomegaly. Extremities: Well perfused. No edema. No calf tenderness. Pulses intact. Neurologic: Patient is alert and oriented to person and place. Speech is fluent. Face is symmetric. Moves all extremities equally. Affect: Normal. Skin: Warm and dry. Well perfused. Const: Vital Signs, click to edit/add: Vital Signs - 24 hr 02/03/24 13:03 Temperature 99.1 F Pulse Rate [Pulse Oximeter] 49 L Respiratory Rate 16 Blood Pressure [Ri ght Upper Arm] 123/68 Pulse Oximetry 94 Oxygen Delivery Me thod Room Air Course Course ED Course: Patient is bradycardic on exam, he notes that his pulse is always 50, which he says is related to his pacemaker. Exam is otherwise unremarkable, he does not have any abdominal tenderness, does not appear ill. I do think it is reasonable to redo abdominal imaging as he has had kidney stones previously without significant abdominal or back pain. With regard to the constipation, I would suggest that we start by adding MiraLax and see how he does with that. With only 3 days since his last bowel movement him without significant abdominal pain or vomiting, I do not think he needs more aggressive treatment of that in the ER today. Patient's labs are notable for normal white blood cell count of 10.9. Hemoglobin is normal, no significant left shift. INR is therapeutic at 2. Labs notable for BUN of 46 and a creatinine of 2 which is about his baseline. CRP is 0.8. Urinalysis showed greater than 100 red cells and did also show 25-50 white blood cells. This was sent for culture. CT scan of the abdomen read by radiology as follows:FINDINGS: Lower chest: Right gynecomastia. Discoid atelectasis right middle lobe. Pacemaker leads are partially included on the exam. Status post aortic valve replacement. Liver: Unremarkable. Normal in size and attenuation. No masses. Gallbladder and bile ducts: Status post cholecystectomy. Spleen: Unremarkable. Normal in size without mass. Pancreas: Pancreatic atrophy. Adrenal glands: Unremarkable. No nodules. Kidneys: Nephrolithiasis with mild right renal cortical atrophy. No definite hydronephrosis, however there is a 3 millimeter distal right ureteral stone (3, 75). Vasculature: Atherosclerosis without abdominal aortic aneurysm. GI tract: Fat containing umbilical hernia. The stomach is unremarkable. No dilated loops of large or small intestine. Pelvis: Moderate prostatic enlargement. Bones: Status post left total hip replacement. Degenerative disc disease lumbar spine. 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 IMPRESSION: 1. Nephrolithiasis without hydronephrosis, however there is a 3 millimeter distal right ureteral stone. 2. Moderate enlargement of the prostate. 3. Degenerative disc disease L5-S1 with grade 1 anterolisthesis. I reviewed all this with the patient. He does not appear to have obstruction due to this kidney stone, and there are no signs of systemic infection. I am going to put him on antibiotic given the appearance of his urinalysis, but I do not think he needs urgent removal of the stone. Reviewed reasons to return such as signs of systemic infection, urinary retention, development of significant abdominal or back pain. We also discussed his constipation and how to manage that at home. He is in contact with the Urology Department at [facility] and will touch base with them next week if he is not passing the stone as expected. Vital Signs Vital signs: Initial Vital Signs Temperature 99.1 F 02/03/24 13:03 Temperature Source Temporal Artery Scan 02/03/24 13:03 Pulse Rate 49 L 02/03/24 13:03 Pulse Rhythm Regular 02/03/24 13:03 Pulse Strength 3+ Normal 02/03/24 13:03 Respiratory Rate 16 02/03/24 13:03 Blood Pressure 123/68 02/03/24 13:03 Blood Pressure Mean 86 02/03/24 13:03 Blood Pressure Position Sitting 02/03/24 13:03 Pulse Oximetry 94 02/03/24 13:03 Oxygen Delivery Method Room Air 02/03/24 13:03 Vital Signs Temperature 99.1 F 02/03/24 13:03 Pulse Rate 49 L 02/03/24 13:03 Respiratory Rate 16 02/03/24 13:03 Blood Pressure 123/68 02/03/24 13:03 Pulse Oximetry 94 02/03/24 13:03 Oxygen Delivery Method Room Air 02/03/24 13:03 Temperature 99.1 F 02/03/24 13:03 Pulse Rate 49 L 02/03/24 13:03 Respiratory Rate 16 02/03/24 13:03 Blood Pressure 123/68 02/03/24 13:03 Pulse Oximetry 94 02/03/24 13:03 Oxygen Delivery Method Room Air 02/03/24 13:03 Medical Decision Making Lab Data Labs: Lab Results 02/03/24 02/03/24 Range/Units 13:18 14:00 WBC 10.88 (4.50-11.00) K/uL RBC 5.28 (4.30-5.90) m/uL Hgb 16.7 (13.5-17.5) gm/dL Hct 50.2 (37.0-53.0) % MCV 95 (80-100) fL MCH 32 (26-34) pg MCHC 33 (32-36) gm/dL RDW Coeff of Mara 13.8 (11.5-15.5) % Plt Count 153 (140-440) K/uL Neut % (Auto) 75.3 H (42.0-72.0) % Lymph % (Auto) 14.5 L (20-44) % [place] % (Auto) 9.4 (0.0-11.0) % Eos % (Auto) 0.6 (0.0-7.0) % Baso % (Auto) 0.1 (0.0-3.0) % Neut # (Auto) 8.20 H (1.7-7.0) K/uL Lymph # (Auto) 1.60 (0.90-2.90) K/uL [place] # (Auto) 1.00 H (0.00-0.90) K/UL Eos # (Auto) 0.06 (0.00-0.50) K/uL Baso # (Auto) 0.01 (0.00-0.30) K/uL Abs Immat Gran (auto) 0.01 (0.00-0.30) K/uL Imm/Tot Granulo (auto) 0.1 % INR 2.01 H (0.91-1.10) Sodium 139 (135-149) mmol/L Potassium 3.3 L (3.6-5.1) mmol/L Chloride 101 (96-114) mmol/L Carbon Dioxide 30 (20-32) mmol/L Anion Gap 8 (7-15) mEq/L BUN 46 H (7-30) mg/dL Creatinine 2.0 H (0.5-1.5) mg/dL Estimated Creat Clear 30.92 Estimated GFR 33 ml/min Glucose 124 H (60-115) mg/dL Calcium 10.2 (8.4-10.6) mg/dL C-Reactive Protein 0.8 (0.5-1.0) mg/dL Urine Color Red A (Yellow) Urine Appearance Cloudy A (Clear) Urine pH 6.5 (5.0-8.5) Ur Specific [place] 1.015 (1.000-1.030) Urine Protein 2+ A (Negative) Urine Glucose (UA) Negative (Negative) Urine Ketones Trace A (Negative) Urine Blood 3+ A (Negative) Urine Nitrite Negative (Negative) Urine Bilirubin 1+ A (Negative) Urine Urobilinogen 0.2 (0.2-1.0) Ur Leukocyte Esterase 3+ A (Negative) Urine RBC >100 A (0-2) Urine WBC 25-50 A (0-5) Ur Squamous Epith Cells None (None-Few) Urine Bacteria Few A (None) Discharge Plan Discharge Clinical Impression: Right ureteral stone, Constipation Patient Disposition: Home, Self-Care Condition: Stable Instructions: Polyethylene Glycol 3350 (By mouth), Constipation (DC), High Fiber Diet (ED), Ureteral Stones (ED) Additional Instructions: Regarding constipation, as discussed I would use MiraLax once or twice a day until stools are soft and easy to pass. You have a small kidney stone, 3 mm, that has passed into the right ureter. This size stone will typically pass on its own. Make sure to get plenty of fluids as this can help push the stone through. There are some signs of infection on your urinalysis as well, so I am going to put you on an antibiotic. Please call the urologist at [facility] next week if you have not passed the stone so that you can follow-up. Strain your urine in the meantime. If you have any symptoms of worsening infection such as increasing back or abdominal pain, fevers, chills, vomiting etcetera, return to the emergency department right away. Also, if you are not able to urinate for more than a few hours, you should come back to the emergency department as blood clots can sometimes cause urinary retention. Prescriptions: No Action atorvastatin 40 mg tablet 40 mg PO DAILY hydrochlorothiazide 12.5 mg tablet 12.5 mg PO DAILY potassium citrate 10 mEq (1,080 mg) tablet extended release 20 meq PO BID Patient Comments: TAKE 2 TABLETS BY MOUTH TWICE DAILY WITH MEALS ascorbic acid (vitamin C) 500 mg capsule 500 mg PO DAILY omega 3-utb-xiu-fish oil [Fish Oil] 60-90-500 mg capsule 1 cap PO DAILY calcium carbonate 430 mg calcium (1,000 mg) tablet,chewable 430 mg PO DAILY fluticasone propionate [Flonase Allergy Relief] 50 mcg/actuation spray,suspension 1 spray intranasal DAILY PRN Rx Instructions: administer into each nostril omeprazole 20 mg capsule,delayed release(DR/EC) 20 mg PO DAILY warfarin 2 mg tablet See Rx Instructions .ROUTE .COMPLEX Qty: 90 2RF Rx Instructions: 6 mg (3 tabs) orally once daily, except 8 mg (4 tabs) orally every Tuesday. tamsulosin [Flomax] 0.4 mg capsule 0.4 mg PO DAILY Qty: 7 0RF tamsulosin 0.4 mg capsule 0.4 mg PO DAILY Qty: 90 3RF Patient Comments: TAKE 1 CAPSULE BY MOUTH DAILY oxybutynin chloride 15 mg tablet extended release 24hr 30 mg PO QDAY Qty: 180 3RF furosemide 20 mg tablet 20 mg PO BID Qty: 180 3RF metoprolol succinate 100 mg tablet extended release 24 hr 100 mg PO BID Qty: 180 1RF Follow Up/Referrals: Daniel Molina MD [Primary Care Provider] - Stand Alone Forms: [facility] Info Instructions
[2024-02-03 14:20] LABS: Basophils Absolute Auto 0.01 K/uL (0.00-0.30); Basophils Percent Auto 0.1 % (0.0-3.0); Eosinophils Absolute Auto 0.06 K/uL (0.00-0.50); Eosinophils Percent Auto 0.6 % (0.0-7.0); Hematocrit 50.2 % (37.0-53.0); Hemoglobin* 16.7 gm/dL (13.5-17.5); Immature Granulocytes Abs Auto 0.01 K/uL (0.00-0.30); Immature Granulocytes Pct Auto 0.1 %; Lymphocytes Percent Auto 14.5 % (20-44); Mean Corpuscular HGB Conc 33 gm/dL (32-36); Mean Corpuscular Hemoglobin 32 pg (26-34); Mean Corpuscular Volume 95 fL (80-100); Monocytes Percent Auto 9.4 % (0.0-11.0); Neutrophils Percent Auto 75.3 % (42.0-72.0); Platelet Count* 153 K/uL (140-440); RDW Coefficient of Variation % 13.8 % (11.5-15.5); Red Blood Count 5.28 m/uL (4.30-5.90); White Blood Count* 10.88 K/uL (4.50-11.00)
[2024-02-03 14:29] LABS: Chloride* 101 mmol/L (96-114); Sodium* 139 mmol/L (135-149)
[2024-02-03 14:30] LABS: Potassium* 3.3 mmol/L (3.6-5.1)
[2024-02-03 14:32] LABS: Est. Creatinine Clearance* 30.92; Estimated Glomerular Filt Rate 33 ml/min
[2024-02-03 14:33] LABS: Anion Gap 8 mEq/L (7-15); Blood Urea Nitrogen* 46 mg/dL (7-30); Carbon Dioxide* 30 mmol/L (20-32); Glucose* 124 mg/dL (60-115)
[2024-02-03 14:34] LABS: Calcium* 10.2 mg/dL (8.4-10.6)
[2024-02-03 14:36] LABS: C Reactive Protein* 0.8 mg/dL (0.5-1.0); INR 2.01 (0.91-1.10); Prothrombin Time 24.2 Seconds
[2024-02-03 14:40] LABS: Slide Review Reflex No
== END 2024-02-03 16:00 | disposition home or self-care (01) ==
PROVIDERS: Emergency Provider Emergency Medicine; PCP Family Medicine
DX: N20.1 Calculus of ureter (principal); K59.00 Constipation, unspecified
CPT/HCPCS: 36415; 74176; 80048; 81001; 85025; 85610; 86140; 87086; 99284

== ENCOUNTER 2024-10-07 00:50 | Emergency (ER) | payer MEDICARE, OTHER, SELFPAY ==
[2024-10-07 00:57] VITALS: BP 159/107; PULSE 74; RESP 17; TEMP 36.4; O2SAT 95; BMI 35.2
--- NOTE | 2024-10-07 01:26 | ED.GENADULT ---
HPI - General Adult General Chief complaint: Arrhythmia/Palpitations Stated complaint: high pulse Time Seen by Provider: 10/07/24 01:15 History of Present Illness HPI narrative: 2 weeks ago at [facility] had internal defibulator/ pacer adjusted at [facility], since then he has been checking his pulse at home. tonight noticed pulse seems to be all over the place , 35 to 110. denies chest pain, denies SOB, deneis feeling any palpitations. patient has signifigant cardiac hx and sees cardiology through [facility] [ANDIE/Chief Complaint] -ANDIE Level 3-Compromised 78-year-old man presenting to the emergency department with concern of irregular pulse. Does have a history of pacer defibrillator with a history of atrial fibrillation and 2 weeks ago seen at [place] where some adjustments were made. Sounds like was thought to be too low. Increased from 50 to 70 as reported. Has not been feeling lightheaded. No chest pain or shortness of breath Sounds to have been alerted by monitor. Has been using pulse ox symmetry finger tip for monitoring. Checking a couple of different ones. Recent hematuria and suspected kidney stones On review of record latest echocardiogram that is available here is from a little over year ago. This showed a normal left ventricular size with moderately increased wall thickness and hyperdynamic globally with an EF 76%. Related Data Home Medications ?Medication ?Instructions ?Recorded ?Confirmed ascorbic acid (vitamin C) 500 mg 500 mg PO DAILY 06/24/22 10/07/24 capsule calcium carbonate 430 mg PO DAILY 06/24/22 10/07/24 fluticasone propionate 50 1 spray intranasal DAILY PRN 06/24/22 10/07/24 mcg/actuation nasal spray,suspension (Flonase Allergy Relief) omega 5-dct-bcx-fish oil 60 mg-90 1 cap PO DAILY 06/24/22 10/07/24 mg-500 mg capsule (Fish Oil) potassium citrate 10 mEq (1,080 20 meq PO BID 06/24/22 10/07/24 mg) tablet,extended release atorvastatin 40 mg tablet 40 mg PO DAILY 02/03/24 10/07/24 hydrochlorothiazide 12.5 mg tablet 12.5 mg PO DAILY 02/03/24 10/07/24 Previous Rx's ?Medication ?Instructions ?Recorded tamsulosin 0.4 mg capsule (Flomax) 0.4 mg PO DAILY #7 caps 09/01/23 metoprolol succinate 100 mg 100 mg PO BID #180 tabs 05/25/24 tablet,extended release 24 hr omeprazole 20 mg capsule,delayed 20 mg PO DAILY #90 caps 05/25/24 release oxybutynin chloride 15 mg 30 mg (2 x 15 mg) PO QDAY #180 tabs 05/25/24 tablet,extended release 24 hr warfarin 2 mg tablet See Rx Instructions .Route .ud #90 07/04/24 tabs warfarin 4 mg tablet See Rx Instructions PO .ud #90 tabs 07/04/24 furosemide 20 mg tablet 20 mg PO BID #180 tabs 10/01/24 tamsulosin 0.4 mg capsule 0.4 mg PO DAILY #30 caps 10/22/24 Allergies Allergy/AdvReac Type Severity Reaction Status Date / Time azithromycin (From Zithromax AdvReac Verified 02/03/24 13:09 Z-Neftaly) Review of Systems Status of ROS: Reports: 6 or more systems reviewed and unremarkable except as noted in History and below PFSH PFSH Medical History Hematuria ?R31.9 - Hematuria, unspecified (ICD-10) Contusion of knee ?S80.00XA - Contusion of unspecified knee, initial encounter (ICD-10) Surgical History History of aortic valve replacement ?Z95.2 - Presence of prosthetic heart valve (ICD-10) Status post left hip replacement ?Z96.642 - Presence of left artificial hip joint (ICD-10) History of sinus surgery ?Z98.890 - Other specified postprocedural states (ICD-10) History of thumb surgery ?Z98.890 - Other specified postprocedural states (ICD-10) Social History What is your current living situation?: I presently have a place to live Problems where you live: no known problems Problems where you live details: none In the past 12 months, utilities in danger of being shut off: no In past 12 months, lack of transportation kept you from medical appts, meetings, work, or getting things needed for daily living: no In the past 12 mos, have been you worried that your food would run out before you had money to buy more?: never true In the past 12 mos, the food you bought just didn't last and you didn't have money to buy more?: never true Smoking Status: Never smoker Do you use any of these nicotine containing products: None Second hand tobacco smoke exposure: No How often do you have a drink containing alcohol: never How often do you have six or more drinks on one occasion: Never AUDIT-C Alcohol total score: 0 Non-prescribed substance use: denies use Caffeine: Yes How often does anyone, including family, friends and others, physically hurt you: never How often does anyone, including family, friends and others, insult or talk down to you: never How often does anyone, including family, friends and others, threaten you with harm: never How often does anyone, including family, friends and others, scream or curse at you: never service: Yes Exam Narrative: Exam Narrative: Pleasant. Easily talkative. Of good energy. Breathing easily. Lungs are clear. Heart auscultates fairly regular. Some ectopic beats. 2/6 systolic murmur. No JVD. All extremities are without edema. Well-perfused Showing numerous PVCs on monitor. Const: Vital Signs, click to edit/add: Vital Signs - 24 hr 10/07/24 00:57 Temperature 97.6 F Pulse Rate [Pulse Oximeter] 74 Respiratory Rate 17 Blood Pressure [Ri ght Upper Arm] 159/107 H Pulse Oximetry 95 Oxygen Delivery Me thod Room Air Documenting provider has reviewed patient's vital signs: yes Course Vital Signs Vital signs: Initial Vital Signs Temperature 97.6 F 10/07/24 00:57 Temperature Source Temporal Artery Scan 10/07/24 00:57 Pulse Rate 74 10/07/24 00:57 Respiratory Rate 17 10/07/24 00:57 Blood Pressure 159/107 H 10/07/24 00:57 Blood Pressure Mean 124 H 10/07/24 00:57 Blood Pressure Position Semi-Fowlers 10/07/24 00:57 Pulse Oximetry 95 10/07/24 00:57 Oxygen Delivery Method Room Air 10/07/24 00:57 Vital Signs Temperature 97.6 F 10/07/24 00:57 Pulse Rate 74 10/07/24 00:57 Respiratory Rate 17 10/07/24 00:57 Blood Pressure 159/107 H 10/07/24 00:57 Pulse Oximetry 95 10/07/24 00:57 Oxygen Delivery Method Room Air 10/07/24 00:57 Temperature 97.6 F 10/07/24 00:57 Pulse Rate 74 10/07/24 00:57 Respiratory Rate 17 10/07/24 00:57 Blood Pressure 159/107 H 10/07/24 00:57 Pulse Oximetry 95 10/07/24 00:57 Oxygen Delivery Method Room Air 10/07/24 00:57 Medications Administered Medications: Discontinued Medications Generic Name Dose Route Start Last Admin Trade Name Freq PRN Reason Stop Dose Admin Sodium Chloride 1,000 mls @ 1,000 mls/hr 10/07/24 01:38 10/07/24 02:41 0.9 % Sodium Chloride 1000 Ml IV 10/07/24 02:37 Infused .Q1H ONE Infusion Medical Decision Making MDM Narrative Medical decision making narrative: Appears to be having frequent PVCs. EKG otherwise shows a ventricular paced rhythm. Some of these PVCs are in bigeminy. These actually though appear to be asymptomatic. Does take beta-vinicio and diuretic I think there is a discrepancy between these PVCs and pulse measurements. Either recording too many or too few beats. Will give IV hydration. Check chemistries and hemoglobin. With IV hydration and time in the emergency department rhythm returned to baseline I think without PVCs. Paced rhythm and last measured around 70. Appears reassured. Labs are reassuring. Other than BNP of 1300. no new symptoms of CHF exacerbation otherwise See patient discharge plan for further discussion Stay well-hydrated. Rest. Return for persistent arrhythmia, lightheadedness, shortness of breath, chest pain. Medical Records Medical records reviewed: Yes I reviewed the patient's medical records Lab Data Lab results reviewed: Yes I reviewed the patient's lab results Labs: Lab Results 10/07/24 Range/Units 01:52 Hgb 15.7 (13.5-17.5) gm/dL Sodium 139 (135-149) mmol/L Potassium 4.3 (3.6-5.1) mmol/L Chloride 107 (96-114) mmol/L Carbon Dioxide 26 (20-32) mmol/L Anion Gap 6 L (7-15) mEq/L BUN 28 (7-30) mg/dL Creatinine 1.6 H (0.5-1.5) mg/dL Estimated Creat Clear 38.65 Estimated GFR 44 ml/min Glucose 91 (60-115) mg/dL Calcium 9.6 (8.4-10.6) mg/dL NT-Pro-B Natriuret Pep 1330 pg/mL ECG Data Attestation: I personally reviewed and interpreted this ECG as follows: (Regular ventricular paced complexes. Sinus rhythm. There are also PVCs with some bigeminy. Rate of 75) Discharge Plan Discharge Clinical Impression: Asymptomatic PVCs, Dehydration Patient Disposition: Home w/ Parent or Adult Condition: Improved Additional Instructions: Stay well-hydrated. Rest. Return for persistent arrhythmia, lightheadedness, shortness of breath, chest pain. Prescriptions: No Action tamsulosin 0.4 mg capsule 0.4 mg PO DAILY Qty: 30 0RF Patient Comments: TAKE 1 CAPSULE BY MOUTH DAILY atorvastatin 40 mg tablet 40 mg PO DAILY hydrochlorothiazide 12.5 mg tablet 12.5 mg PO DAILY potassium citrate 10 mEq (1,080 mg) tablet extended release 20 meq PO BID Patient Comments: TAKE 2 TABLETS BY MOUTH TWICE DAILY WITH MEALS ascorbic acid (vitamin C) 500 mg capsule 500 mg PO DAILY omega 8-toh-akx-fish oil [Fish Oil] 60-90-500 mg capsule 1 cap PO DAILY calcium carbonate 430 mg calcium (1,000 mg) tablet,chewable 430 mg PO DAILY fluticasone propionate [Flonase Allergy Relief] 50 mcg/actuation spray,suspension 1 spray intranasal DAILY PRN Rx Instructions: administer into each nostril tamsulosin [Flomax] 0.4 mg capsule 0.4 mg PO DAILY Qty: 7 0RF oxybutynin chloride 15 mg tablet extended release 24hr 30 mg PO QDAY Qty: 180 0RF omeprazole 20 mg capsule,delayed release(DR/EC) 20 mg PO DAILY Qty: 90 0RF Rx Instructions: Pt due for annual wellness prior to next refill. metoprolol succinate 100 mg tablet extended release 24 hr 100 mg PO BID Qty: 180 0RF warfarin 2 mg tablet See Rx Instructions .ROUTE .ud Qty: 90 3RF Rx Instructions: Take a 2 mg tablet in addition to 4 mg tablet for a total of 6 mg daily. UD; warfarin 4 mg tablet See Rx Instructions PO .ud Qty: 90 4RF Rx Instructions: Take a 4 mg tablet in addition to the 2 mg tablet for a total of 6 mg per day orally UD; furosemide 20 mg tablet 20 mg PO BID Qty: 180 0RF Follow Up/Referrals: Daniel Molina MD [Primary Care Provider] - Stand Alone Forms: [facility] Info Instructions
[2024-10-07] MEDS: 0.9 % SODIUM CHLORIDE 1000 ml 1,000 ML IV (01:54)
[2024-10-07 01:59] LABS: Hemoglobin* 15.7 gm/dL (13.5-17.5)
[2024-10-07 02:22] LABS: Chloride* 107 mmol/L (96-114); Potassium* 4.3 mmol/L (3.6-5.1); Sodium* 139 mmol/L (135-149)
[2024-10-07 02:25] LABS: Anion Gap 6 mEq/L (7-15); Blood Urea Nitrogen* 28 mg/dL (7-30); Calcium* 9.6 mg/dL (8.4-10.6); Carbon Dioxide* 26 mmol/L (20-32); Creatinine* 1.6 mg/dL (0.5-1.5); Est. Creatinine Clearance* 38.65; Estimated Glomerular Filt Rate 44 ml/min; Glucose* 91 mg/dL (60-115)
[2024-10-07 02:35] LABS: NT Pro B Type NatriureticPept* 1330 pg/mL
== END 2024-10-07 02:45 | disposition home or self-care (01) ==
PROVIDERS: Emergency Provider Family Medicine; PCP Family Medicine
DX: I49.3 Ventricular premature depolarization (principal); E86.0 Dehydration; R42 Dizziness and giddiness; R31.9 Hematuria, unspecified; Z95.0 Presence of cardiac pacemaker
CPT/HCPCS: 36415; 80048; 83880; 85018; 96360; 99284; J7030

== ENCOUNTER 2024-12-13 09:10 | Emergency (ER) | payer MEDICARE, OTHER, SELFPAY ==
[2024-12-13] VITALS (29 sets, daily range): BP systolic 122–159; BP diastolic 72–105; PULSE 70–76; RESP 0–26; TEMP 36.5; O2SAT 87–98; BMI 38.0
--- OUTSIDE RECORDS SUMMARY | 2024-12-13 09:12 | XMS_ITS | Encounter Summary ---
Author Organization [facility] Address [address] [place] [address] Care Team Providers Care Solution Coordinator Name Role Phone William Magallon MD Primary Care Provider [phone] Encounter Details Date Type Department Care Team (Latest Contact Info) Description 06/04/1996 [place] [address] [place] [address] Social History Tobacco Use Types Packs/Day Years Used Date Smoking Tobacco: Never Assessed Sex and Gender Information Value Date Recorded Sex Assigned at Male 08/09/2022 3:35 PM PBX TECHNICIAN Legal Sex Male 4:08 AM CDT Gender Identity Male 08/09/2022 3:35 PM PBX TECHNICIAN Sexual Orientation Straight 08/09/2022 3: 35 PM PBX TECHNICIAN documented as of this encounter Plan of Treatment Not on file documented as of this encounter Visit Diagnoses Not on filedocumented in this encounter Care Teams Solution Coordinator Relationship Specialty [place] [address] [place] [address] PCP - General 05/19/1996 documented as of this encounter
--- OUTSIDE RECORDS SUMMARY | 2024-12-13 09:12 | XMS_ITS | Encounter Summary ---
Author Organization [employer] Address [address] [address] Care Team Providers Care Laborer Syrup Machine Name Role Phone William Magallon MD Primary Care Provider Encounter Details Date Type Department Care Team (Latest Contact Info) Description 06/05/1997 [place] [address] [place] [address] Social History Tobacco Use Types Packs/Day Years Used Date Smoking Tobacco: Never Assessed Sex and Gender Information Value Date Recorded Sex Assigned at Male 08/09/2022 3:35 PM CLINICAL REVIEW SPECIALIST Legal Sex Male 4:08 AM CDT Gender Identity Male 08/09/2022 3:35 PM CLINICAL REVIEW SPECIALIST Sexual Orientation Straight 08/09/2022 3: 35 PM CLINICAL REVIEW SPECIALIST documented as of this encounter Plan of Treatment Not on file documented as of this encounter Visit Diagnoses Not on filedocumented in this encounter Care Teams Laborer Syrup Machine Relationship Specialty [place] [address] [place] [address] PCP - General 05/19/1996 documented as of this encounter
--- OUTSIDE RECORDS SUMMARY | 2024-12-13 09:12 | XMS_ITS | Encounter Summary ---
Author Organization [facility] Address [address] [address] Care Team Providers Care Glycerin Operator Name Role Phone William Magallon MD Primary Care Provider [phone] Encounter Details Date Type Department Care Team (Latest Contact Info) Description 07/01/1997 [place] [address] [place] [address] Social History Tobacco Use Types Packs/Day Years Used Date Smoking Tobacco: Never Assessed Sex and Gender Information Value Date Recorded Sex Assigned at Male 08/09/2022 3:35 PM CHEF KITCHEN MANAGER Legal Sex Male 4:08 AM CDT Gender Identity Male 08/09/2022 3:35 PM CHEF KITCHEN MANAGER Sexual Orientation Straight 08/09/2022 3: 35 PM CHEF KITCHEN MANAGER documented as of this encounter Plan of Treatment Not on file documented as of this encounter Visit Diagnoses Not on filedocumented in this encounter Care Teams Glycerin Operator Relationship Specialty [place] [address] [place] [address] PCP - General 05/19/1996 documented as of this encounter
--- OUTSIDE RECORDS SUMMARY | 2024-12-13 09:12 | XMS_ITS | Encounter Summary ---
Author Organization [facility] Address [address] [address] Care Team Providers Care Senior Product Designer Name Role Phone William Magallon MD Primary Care Provider [phone] Encounter Details Date Type Department Care Team (Latest Contact Info) Description 12/13/1997 Orders Only Nahum Ernandez, GEOVANYS Social History Tobacco Use Types Packs/Day Years Used Date Smoking Tobacco: Never Assessed Sex and Gender Information Value Date Recorded Sex Assigned at Male 08/09/2022 3:35 PM CALIBRATION TESTER Legal Sex Male 4:08 AM CDT Gender Identity Male 08/09/2022 3:35 PM CALIBRATION TESTER Sexual Orientation Straight 08/09/2022 3: 35 PM CALIBRATION TESTER documented as of this encounter Plan of Treatment Not on file documented as of this encounter Visit Diagnoses Not on filedocumented in this encounter Care Teams Senior Product Designer Relationship Specialty [place] [address] [place] [address] PCP - General 05/19/1996 documented as of this encounter
--- OUTSIDE RECORDS SUMMARY | 2024-12-13 09:12 | XMS_ITS | Encounter Summary ---
Author Organization [facility] Address [address] [address] Care Team Providers Care Tool And Die Maker Name Role Phone William Magallon MD Primary Care Provider [phone] Encounter Details Date Type Department Care Team (Latest Contact Info) Description 07/22/1997 [place] [address] [place] [address] Social History Tobacco Use Types Packs/Day Years Used Date Smoking Tobacco: Never Assessed Sex and Gender Information Value Date Recorded Sex Assigned at Male 08/09/2022 3:35 PM CANDLE MOLDER HAND Legal Sex Male 4:08 AM CDT Gender Identity Male 08/09/2022 3:35 PM CANDLE MOLDER HAND Sexual Orientation Straight 08/09/2022 3: 35 PM CANDLE MOLDER HAND documented as of this encounter Plan of Treatment Not on file documented as of this encounter Visit Diagnoses Not on filedocumented in this encounter Care Teams Tool And Die Maker Relationship Specialty [place] [address] [place] [address] PCP - General 05/19/1996 documented as of this encounter
--- OUTSIDE RECORDS SUMMARY | 2024-12-13 09:13 | XMS_ITS | Encounter Summary ---
Author Organization [facility] Address [address] [place] [address] Care Team Providers Care Police Investigator Name Role Phone William Magallon MD Primary Care Provider [phone] Encounter Details Date Type Department Care Team (Latest Contact Info) Description 07/05/1995 [place] [address] [place] [address] Social History Tobacco Use Types Packs/Day Years Used Date Smoking Tobacco: Never Assessed Sex and Gender Information Value Date Recorded Sex Assigned at Male 08/09/2022 3:35 PM HEAD OF HUMAN RESOURCES Legal Sex Male 4:08 AM CDT Gender Identity Male 08/09/2022 3:35 PM HEAD OF HUMAN RESOURCES Sexual Orientation Straight 08/09/2022 3: 35 PM HEAD OF HUMAN RESOURCES documented as of this encounter Plan of Treatment Not on file documented as of this encounter Visit Diagnoses Not on filedocumented in this encounter Care Teams Police Investigator Relationship Specialty [place] [address] [place] [address] PCP - General 05/19/1996 documented as of this encounter
--- OUTSIDE RECORDS SUMMARY | 2024-12-13 09:13 | XMS_ITS | Encounter Summary ---
Author Organization [facility] Address [address] [place] [address] Care Team Providers Care Representative Name Role Phone William Magallon MD Primary Care Provider [phone] Encounter Details Date Type Department Care Team (Latest Contact Info) Description 04/04/1998 Orders Only Bill Rosenthal MD [address] [place] [address] Social History Tobacco Use Types Packs/Day Years Used Date Smoking Tobacco: Never Assessed Sex and Gender Information Value Date Recorded Sex Assigned at Male 08/09/2022 3:35 PM BUTT WELDER Legal Sex Male 4:08 AM CDT Gender Identity Male 08/09/2022 3:35 PM BUTT WELDER Sexual Orientation Straight 08/09/2022 3: 35 PM BUTT WELDER documented as of this encounter Plan of Treatment Not on file documented as of this encounter Visit Diagnoses Not on filedocumented in this encounter Care Teams Representative Relationship Specialty [place] [address] [place] [address] PCP - General 05/19/1996 documented as of this encounter
--- OUTSIDE RECORDS SUMMARY | 2024-12-13 09:13 | XMS_ITS | Encounter Summary ---
Author Organization [facility] Address [address] [place] [address] Care Team Providers Care Special Forces Specialist Name Role Phone William Magallon MD Primary Care Provider [phone] Encounter Details Date Type Department Care Team (Latest Contact Info) Description 09/26/1998 Orders Only Juan Redman MD [address] [place] [address] Social History Tobacco Use Types Packs/Day Years Used Date Smoking Tobacco: Never Assessed Sex and Gender Information Value Date Recorded Sex Assigned at Male 08/09/2022 3:35 PM OIL AND GAS PRINCIPAL Legal Sex Male 4:08 AM CDT Gender Identity Male 08/09/2022 3:35 PM OIL AND GAS PRINCIPAL Sexual Orientation Straight 08/09/2022 3: 35 PM OIL AND GAS PRINCIPAL documented as of this encounter Plan of Treatment Not on file documented as of this encounter Visit Diagnoses Not on filedocumented in this encounter Care Teams Special Forces Specialist Relationship Specialty [place] [address] [place] [address] PCP - General 05/19/1996 documented as of this encounter
--- OUTSIDE RECORDS SUMMARY | 2024-12-13 09:13 | XMS_ITS | Encounter Summary ---
Author Organization [facility] Address [address] [place] [address] Care Team Providers Care Hand Stemmer Name Role Phone William Magallon MD Primary Care Provider [phone] Encounter Details Date Type Department Care Team (Latest Contact Info) Description 04/04/1995 [place] [address] [place] [address] Social History Tobacco Use Types Packs/Day Years Used Date Smoking Tobacco: Never Assessed Sex and Gender Information Value Date Recorded Sex Assigned at Male 08/09/2022 3:35 PM WELDING MACHINE TENDER Legal Sex Male 4:08 AM CDT Gender Identity Male 08/09/2022 3:35 PM WELDING MACHINE TENDER Sexual Orientation Straight 08/09/2022 3: 35 PM WELDING MACHINE TENDER documented as of this encounter Plan of Treatment Not on file documented as of this encounter Visit Diagnoses Not on filedocumented in this encounter Care Teams Hand Stemmer Relationship Specialty [place] [address] [place] [address] PCP - General 05/19/1996 documented as of this encounter
--- OUTSIDE RECORDS SUMMARY | 2024-12-13 09:13 | XMS_ITS | Encounter Summary ---
Author Organization [facility] Address [address] [address] Care Team Providers Care Surveyor Helper Rod Name Role Phone William Magallon MD Primary Care Provider [phone] Encounter Details Date Type Department Care Team (Latest Contact Info) Description 08/20/1999 [place] [address] [place] [address] Social History Tobacco Use Types Packs/Day Years Used Date Smoking Tobacco: Never Assessed Sex and Gender Information Value Date Recorded Sex Assigned at Male 08/09/2022 3:35 PM RESEARCH AND DEVELOPMENT SCIENTIST Legal Sex Male 4:08 AM CDT Gender Identity Male 08/09/2022 3:35 PM RESEARCH AND DEVELOPMENT SCIENTIST Sexual Orientation Straight 08/09/2022 3: 35 PM RESEARCH AND DEVELOPMENT SCIENTIST documented as of this encounter Plan of Treatment Not on file documented as of this encounter Visit Diagnoses Not on filedocumented in this encounter Care Teams Surveyor Helper Rod Relationship Specialty [place] [address] [place] [address] PCP - General 05/19/1996 documented as of this encounter
--- OUTSIDE RECORDS SUMMARY | 2024-12-13 09:13 | XMS_ITS | Encounter Summary ---
Author Organization [facility] Address [address], [place] [address] Care Team Providers Care Costume Specialist Name Role Phone William Magallon MD Primary Care Provider [phone] Encounter Details Date Type Department Care Team (Latest Contact Info) Description 01/15/1999 Orders Only Nahum Ernandez, GEOVANYS Social History Tobacco Use Types Packs/Day Years Used Date Smoking Tobacco: Never Assessed Sex and Gender Information Value Date Recorded Sex Assigned at Male 08/09/2022 3:35 PM ELECTROTHERAPIST Legal Sex Male 4:08 AM CDT Gender Identity Male 08/09/2022 3:35 PM ELECTROTHERAPIST Sexual Orientation Straight 08/09/2022 3: 35 PM ELECTROTHERAPIST documented as of this encounter Plan of Treatment Not on file documented as of this encounter Visit Diagnoses Not on filedocumented in this encounter Care Teams Costume Specialist Relationship Specialty [place] [address] [place] [address] PCP - General 05/19/1996 documented as of this encounter
--- OUTSIDE RECORDS SUMMARY | 2024-12-13 09:13 | XMS_ITS | Clinical Summary ---
Author Organization [facility] Address [address] [place] [address] Care Team Providers Care Floriculturist Name Role Phone Marily Calvert Primary Care Provider [phone] Allergies Active Allergy Reactions Criticality Noted Date Comments Azithromycin *Unknown 10/13/2016 Medications atenolol (TENORMIN) 50 mg tablet Take 50 mg by mouth once daily. Take 1 and 1/2 tabs daily Active fexofenadine (MELVIN) 180 mg tablet Take 180 mg by mouth once daily with a meal. Active fluticasone (50 mcg per actuation) nasal solution (FLONASE) Inhale 2 Sprays into both nostrils once daily. Active pantoprazole (PROTONIX) 40 mg delayed-release tablet Take 40 mg by mouth once daily. Active amoxicillin (AMOXIL) 500 mg capsule Take 500 mg by mouth 3 times daily. 4 caps 30-60 minutes before procedure Active oxybutynin XL (DITROPAN XL) 10 mg CR tablet 10 mg once daily. Active triamcinolone-e mollient cmb#86 0.1 % topical cream Apply 1 Pump topically to affected area(s) 3 times daily if needed. Active Calcium-Choleca lciferol, D3, 600 mg(1,500mg) -400 unit cap Take 1 tablet by mouth 2 times daily. Active WARFARIN SODIUM (WARFARIN ORAL) Take 8 mg by mouth. 5 days a week Active WARFARIN SODIUM (WARFARIN ORAL) Take 9 mg by mouth. 2 days a week Active FA/MV,CA,IRON,M IN/LYCOPENE/LUT (MULTIVITAL ORAL) Take 1 tablet by mouth once daily. Active desonide 0.05% (TRIDESILON 0.05% OINTMENT) 0.05 % ointment Apply 1 Pump topically to affected area(s) 3 times daily if needed for Other (Specify). Active Social History Tobacco Use Types Packs/Day Years Used Date Smoking Tobacco: Never Alcohol Use Standard Drinks/Week Comments No 0 (1 standard drink = 0.6 oz pur e alcohol) Sex and Gender Information Value Date Recorded Sex Assigned at Not on file Legal Sex Male 5:42 AM COST CONTROL SUPERVISOR Gender Identity Not on file Sexual Orientation Not on file Obstetrics History Last Filed Vital Signs Vital Sign Reading Time Taken Comments Blood Pressure 175/89 10/21/2016 12:30 PM CDT Pulse 56 10/21/2016 12:30 PM CDT Temperature 36.9 C (98.4 F) 10/21/2016 9:13 AM CDT Respiratory Rate 16 10/21/2016 12:30 PM CDT Oxygen Saturation 93% 10/21/2016 12:30 PM CDT Inhaled Oxygen Concentration - - Weight 144.7 kg (319 lb) 10/08/2010 2:09 PM CDT Height 177.8 cm (5' 10) 10/21/2016 9:13 AM CDT Body Mass Index - - Plan of Treatment Health Maintenance Due Date Last Done Comments Tetanus booster 10/31/1956 Depression screening for age 12+ 1956 BMI (ht and wt on same day) for age 18+ 1962 Pneumococcal series for age 50+ (1 of 1 - PCV) 1994 Zoster (shingles) series for age 50+ (1 of 2) 1994 RSV vaccine for adults or (1 - 1-dose 75+ series) 10/31/2019 COVID-19 vaccine series ( - 2023- season) 2024 Influenza Vaccine (#1) 2025 Hepatitis B series for 19+ Aged Out N o longer eligible based on patient's age to complete this topic Insurance MEDICARE PART B [place] ONLY Member Subscriber Plan / Payer (Ef fective 2009-Present) Name:Sean Recio Member ID:[id number] Relation to Subscriber:Self Name:Sean Recio Subscriber ID:[id number] Payer ID:Not on file Group ID:Not on file Type:Not on file Address: ATTN: CLAIMS [address] MEDICARE SUPPLEMENT PLAN [place] [address] MEDICARE PB ONLY Member Subscriber Plan / Payer ( fective 2018-Present) Name:Sean Recio Member ID:[id number] Relation to Subscriber:Self Name:Sean Recio Subscriber ID:[id number] Payer ID:Not on file Group ID:Not on file Type:Not on file Address: ATTN: CLAIMS [address] MEDICARE PART A [place] ONLY Advance Directives * Full Code (Latest Code Status on File) Date Activated Date Inactivated Comments 10/21/2016 11:59 AM 10/21/2016 3:09 PM * Full Code Date Activated Date Inactivated Comments 10/21/2016 11:00 AM 10/21/2016 11:59 AM Care Teams Floriculturist Relationship Specialty Start Date End Date Marily Calvert MBBS PCP - General Internal Medicine 10/08/10
--- OUTSIDE RECORDS SUMMARY | 2024-12-13 09:13 | XMS_ITS | Encounter Summary ---
Author Organization [employer] Address [address], [place] [address] Care Team Providers Care Children Counselor Name Role Phone William Magallon MD Primary Care Provider [phone] Encounter Details Date Type Department Care Team (Latest Contact Info) Description 06/25/1996 [place] [address] [place] [address] Social History Tobacco Use Types Packs/Day Years Used Date Smoking Tobacco: Never Assessed Sex and Gender Information Value Date Recorded Sex Assigned at Male 08/09/2022 3:35 PM RED CAP Legal Sex Male 4:08 AM CDT Gender Identity Male 08/09/2022 3:35 PM RED CAP Sexual Orientation Straight 08/09/2022 3: 35 PM RED CAP documented as of this encounter Plan of Treatment Not on file documented as of this encounter Visit Diagnoses Not on filedocumented in this encounter Care Teams Children Counselor Relationship Specialty [place] [address] [place] [address] PCP - General 05/19/1996 documented as of this encounter
--- OUTSIDE RECORDS SUMMARY | 2024-12-13 09:13 | XMS_ITS | Encounter Summary ---
Author Organization [facility] Address [address], [place] [address] Care Team Providers Care Heavy Truck Mechanic Name Role Phone William Magallon MD Primary Care Provider [phone] Encounter Details Date Type Department Care Team (Latest Contact Info) Description 11/04/1994 Orders Only Steven Vazquez Social History Tobacco Use Types Packs/Day Years Used Date Smoking Tobacco: Never Assessed Sex and Gender Information Value Date Recorded Sex Assigned at Male 08/09/2022 3:[address] INSTALLER Legal Sex Male 4:08 AM CDT Gender Identity Male 08/09/2022 3:[address] INSTALLER Sexual Orientation Straight 08/09/2022 3: [address] INSTALLER documented as of this encounter Plan of Treatment Not on file documented as of this encounter Visit Diagnoses Not on filedocumented in this encounter Care Teams Heavy Truck Mechanic Relationship Specialty [place] [address] [place] [address] PCP - General 05/19/1996 documented as of this encounter
--- OUTSIDE RECORDS SUMMARY | 2024-12-13 09:13 | XMS_ITS | Encounter Summary ---
Author Organization [facility] Address [address] [address] Care Team Providers Care Zoology Technical Officer Name Role Phone William Magallon MD Primary Care Provider [phone] Encounter Details Date Type Department Care Team (Latest Contact Info) Description 01/06/2000 [place] [address] [place] [address] Social History Tobacco Use Types Packs/Day Years Used Date Smoking Tobacco: Never Assessed Sex and Gender Information Value Date Recorded Sex Assigned at Male 08/09/2022 3:35 PM MANAGER TRAINING AND DEVELOPMENT Legal Sex Male 4:08 AM CDT Gender Identity Male 08/09/2022 3:35 PM MANAGER TRAINING AND DEVELOPMENT Sexual Orientation Straight 08/09/2022 3: 35 PM MANAGER TRAINING AND DEVELOPMENT documented as of this encounter Plan of Treatment Not on file documented as of this encounter Visit Diagnoses Not on filedocumented in this encounter Care Teams Zoology Technical Officer Relationship Specialty [place] [address] [place] [address] PCP - General 05/19/1996 documented as of this encounter
--- OUTSIDE RECORDS SUMMARY | 2024-12-13 09:13 | XMS_ITS | Clinical Summary ---
Author Organization [employer] Address [address] [place] [address] Care Team Providers Care Clinical Phlebotomist Name Role Phone William Magallon MD Primary Care Provider [phone] Source Comments You are receiving this document as you are listed as the primary care provider,follow-up provider, or the patient has been referred to you for consultation.This is in compliance with the Medicare andMedicaid EHR Incentive Program,which states Providers who transition their patient to another setting of careor provider of care or refers their patient to another provider of care shouldprovide summary care record for each transition of care or referral. [facility] Allergies Active Allergy Reactions Criticality Noted Date Comments Azithromycin Breathing Difficulty ,Muscle Aches/Weakness,Hypotension High 05/08/2018 Medications * This document contains information received from the source organization and may not represent a complete record from that organization. amoxicillin (AMOXIL) 500 MG capsule Take 4 capsules 1 hour prior to appointment 16 Capsule 8 Active warfarin (COUMADIN) 4 MG tablet TK 2 TS PO QPM 2 8 Active warfarin (COUMADIN) 2 MG tablet TK UTD 3 8 Active atenolol (TENORMIN) 50 MG tablet Take 50 mg by mouth. Active Calcium Carb-Cholecalci ferol (CALCIUM-VITAMI N D3) 600-400 MG-UNIT CAPS Take 1 Tablet by mouth. Active desonide (DESOWEN) 0.05 % cream Apply 1 Application topically. 4 Active desonide (DESOWEN) 0.05 % ointment Apply topically. Ac tive DOCOSAHEXAENOIC ACID OR Take 1 Capsule by mouth. 2 Active fexofenadine (MELVIN) 180 MG tablet Take 1 Tablet by mouth. 6 Active Flaxseed, Linseed, (FLAXSEED OIL) 1000 MG Take 1 Capsule by mouth. 3 Active fluticasone (FLONASE) 50 MCG/ACT nasal solution 2 Sprays by Nasal route. 7 Active FLUAD 0.5 ML JODI ADM 0.5ML IM UTD 0 8 Active ketoconazole (NIZORAL) 2 % cream Apply topically. 5 Active metoprolol succinate (TOPROL XL) 100 MG 24 hour release tablet Take 1 Tablet by mouth. 7 Active metoprolol succinate (TOPROL XL) 100 MG 24 hour release tablet TK 1 T PO D 1 8 Active mupirocin (BACTROBAN) 2 % ointment Apply topically. 0 Active ondansetron (ZOFRAN) 4 MG tablet TK 1 T PO Q 4 H PRN 0 8 Active oxybutynin (DITROPANXL) 10 MG 24 hour release tablet Take 30 mg by mouth. 8 Active oxybutynin (DITROPANXL) 10 MG 24 hour release tablet 0 8 Active oxyCODONE (ROXICODONE) 5 MG immediate release tablet TK 1-2 TS PO Q 4 H PRN 0 8 Active tamsulosin (FLOMAX) 0.4 MG CAPS capsule TK 1 C PO QD 0 8 Active triamcinolone acetonide (KENALOG) 0.1 % cream Apply 1 Application topically. 5 Active amoxicillin (AMOXIL) 500 MG capsule Take by mouth. 6 Active Active Problems Problem Noted Date Diagnosed Date Hematuria 10/20/2017 Nephrolithiasis 10/20/2017 Knee pain 10/18/2017 Encounter for therapeutic drug monitoring 2017 Body mass index (BMI) of 40.0-44.9 in adult 02/2017 Overview (05/12/2018): Body mass index (BMI) 40.0-44.9, adult Rule activated problem due to BMI 40-44 posted on 10/12 at 11:42 CDT. 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 5 Mitral valve [...] hypoventilation 06/19/2008 Aortic valve stenosis 05/29/2007 Immunizations Immunization Administration Dates Next Due Flu Vac (3+ yrs) 03/12/1999 Influenza, Unspecified Formulation 03/20/1998, Td 09/21/1995 Social History Tobacco Use Types Packs/Day Years Used Date Smoking Tobacco: Never Smokeless Tobacco: Never Alcohol Use Standard Drinks/Week Comments Never 0 (1 standard drink = 0.6 oz pur e alcohol) AUDIT-C Answer Date Recorded Frequency of Alcohol Consumption Never 09/29/2018 Average Number of Drinks Not on file 019 Frequency of Binge Drinking Not on file 09/05 Sex and Gender Information Value Date Recorded Sex Assigned at Male 08/09/2022 3:35 PM [employer] Legal Sex Male 4:08 AM CDT Gender Identity Male 08/09/2022 3:35 PM [employer] Sexual Orientation Straight 08/09/2022 3: 35 PM [employer] Last Filed Vital Signs Vital Sign Reading Time Taken Comments Blood Pressure 150/73 05/12/2018 12:19 PM [employer] Pulse 62 05/08/2018 10:24 AM [employer] Temperature - - Respiratory Rate - - Oxygen Saturation - - Inhaled Oxygen Concentration - - Weight - - Height - - Body Mass Index - - Plan of Treatment Health Maintenance Due Date Last Done Comments Medicare Welcome Visit 1945 RSV Vaccine (1 - 1-dose 75+ series) 10/31/2019 COVID-19 Vaccine ( - 2023- season) 2024 08/09/2020, 07/19/2020 Influenza Vaccine (#1) 2025 , 02/12/2019, 05/05/2018, Additional history exists DTaP/Tdap/Td Vaccine (4 - Tdap) 10/31/2028 10/31/2018, 01/25/2006, 01/25/2006, Additional history exists Cholesterol Discontinued 08/21/1997 Pneumococcal Vaccine 50+ Yrs Completed 03/07/2015, 04/25/2014, 06/25/2007, Additional history exists Zoster/Shingles Vaccine Completed 05/12/2019, 02/27 HepA Vaccine Aged Out No longer eligi ble based on patient's age to complete this topic HepB Vaccine Aged Out No longer eligi ble based on patient's age to complete this topic Hib Vaccine Aged Out No longer eligi ble based on patient's age to complete this topic IPV (Polio) Vaccine Aged Out No longe r eligible based on patient's age to complete this topic MCV4 Vaccine Aged Out No longer eligi ble based on patient's age to complete this topic Meningococcal B Vaccine Aged Out No l onger eligible based on patient's age to complete this topic Procedures Procedure Name Priority Date/Time Associated Diagnosis Comments CHOLESTEROL, TOTAL AND HDL Routine 08/21/1997 10:38 AM [employer] from Last 3 Months or Most Recently Relevant to Health Maintenance Results * CHOLESTEROL, TOTAL AND HDL (08/21/1997 10:38 AM [employer]END[employer]CH[employer]) Cholesterol 187 <240 mg/dl [facility] HDL 43 >35 mg/dl [facility] 08/21/1997 10:3 8 AM [employer] 08/21/1997 10:39 AM [employer] us William Magallon MD LAB_1 Final Result [facility] [address] [phone] from Last 3 Months or Most Recently Relevant to Health Maintenance Insurance [employer] Care Teams Clinical Phlebotomist Relationship Specialty [place] [id number] [place] [address] PCP - General 05/19/1996
--- NOTE | 2024-12-13 10:30 | ED.GENADULT ---
HPI - General Adult General Date Seen: 12/13/24 Chief complaint: Hypertension Stated complaint: L arm pain, high BP Time Seen by Provider: 12/13/24 10:30 History of Present Illness HPI narrative: 79 yo M with a past medical history that includes atrial fibrillation, pacemaker, aortic valve replacement with mechanical aortic valve, hypertension, sleep apnea, history of TIAs, bladder spasms, insomnia, GERD, kidney stones. Per medical record, his PCP is Dr. Novoa. Most recent visit was 10/24/2024. According to Dr. Snider is a notes he had been in clinic for a medication follow-up. Dr. Novoa notes that he gets most of his meds from his specialists at [facility]. He apparently follows closely at [place] for his arrhythmia problems and AFib. He follows with [place] for his INR management. He apparently was having some trouble with arrhythmias in October. He was hospitalized here in [place]. Ultimately it sounds like his forest fire equipment operator at [place] increased his baseline rate of his pacemaker from 50 up to 70 beats per minute. Per medical record it looks like he was seen in the ER on 10/07/2024 for irregular pulse rate ranging 35-110 home. He had PVCs his monitor. Per his triage note today he came to the ER this morning because his blood pressure has been elevated systolic. Today is cuff would not read his blood pressure. He has been feeling his pulse in his left arm when he does blood pressure checks. He also notes that his INR is ?way off. ?. History from the patient is very detailed. He is clearly a detailed historian with a lot of medical knowledge. He rides history dating back about 18 years. He had and a aortic valve replacement at [facility] in 2006. It sounds like his postop course was complicated by difficulty getting his heart restarted after going on bypass. He ultimately developed some dysrhythmias (unclear if it was V-tach or AFib? ) That required implantation of a pacemaker. He has had the pacemaker since then. He does also deal with chronic trouble with AFib. He has also had trouble with his left shoulder and has had a shoulder replacement. He has also had a lot of trouble with kidney stones over the years. He also notes that he has chronic renal insufficiency and apparently some of that is related to kidney damage from his kidney stones. He was having trouble with generalized malaise and lightheadedness a few weeks ago. Apparently his forest fire equipment operator at [place] suspected that his baseline heart rate was too low so they increased his basal rate on his pacemaker from 50 beats per minute up to 70. He notes within a couple of days of starting on that his dizziness and fatigue all resolved. After adjusting his pacemaker he was having trouble with labile heart rates apparently from the 30s up to the 110s. His forest fire equipment operator at [place] started him on amiodarone a few weeks ago. He recalls that he had been on amiodarone several years ago and had a lot of med interactions in particular cause trouble with his INR. Since starting on the amiodarone his heart rate has been normal and fairly regularly exactly at 70 or 71 beats per minute. He had some trouble with some gross hematuria a week or 2 ago but that has been gone this week. He is not really having any flank pain. He knows he has kidney stones in both kidneys. Apparently his urologists are reluctant to go after his kidney stones as long as they remain in the renal pelvis. He is apparently a very poor surgical candidate and has had very difficult lithotripsies in the past. He is not currently having any flank pain, fever chills, or dysuria or other symptoms of infection. His INR has been higher than normal for the past couple of days apparently between 4 in 5 with his home INR measurements over the past 2 days. He is not noticing any unusual bleeding or bruising. However, after he arrived here in the ER he did have a cough with some blood-tinged phlegm. He does have some chronic trouble with coughing and had chronically been on Mucinex. He stopped it a couple of weeks ago because it was thought that some of his PVCs (which were a problem prior to initiation of amiodarone) might be related to his cough medicine and allergy meds. He does not otherwise have a worsening cough over the past few days. No fever. No shortness of breath. No chest pain. He is concerned because for the past couple of days he has been having a discomfort in his left upper arm roughly in the biceps region. It does not feel like a pulled muscle and it does not hurt when he moves his arm or shoulder. It has not been swollen. No bruising. No redness. He does not know what triggered it. Does not know exactly when it started but it has definitely been there continuously for the past couple of days. He is not having any chest pain but it is crossed his mind that the arm pain might be a symptom angina. On his home blood pressure cuff he had blood pressures in the 150s systolic for the past couple of days. Today he was not even able to get a reading from his home blood pressure cuff. He also notes that with his long history of heart problems he has never had trouble with palpitations before but for the past couple of days he has been able to hear and feel every heartbeat in his ears. He describes a ?rolling? tinnitus sound. This comes and goes. Sometimes when his there if he turns his neck to the side he can make it go away. It is not currently ?boring? while he is here in the ER. Related Data Home Medications ?Medication ?Instructions ?Recorded ?Confirmed ascorbic acid (vitamin C) 500 mg 500 mg PO DAILY 06/24/22 10/24/24 capsule fluticasone propionate 50 1 spray intranasal DAILY PRN 06/24/22 10/24/24 mcg/actuation nasal spray,suspension (Flonase Allergy Relief) omega 7-aoz-dgv-fish oil 60 mg-90 1 cap PO DAILY 06/24/22 10/24/24 mg-500 mg capsule (Fish Oil) potassium citrate 10 mEq (1,080 20 meq PO BID 06/24/22 10/24/24 mg) tablet,extended release calcium carbonate 430 mg PO DAILY 10/24/24 10/24/24 cholecalciferol (vitamin D3) 25 25 mcg PO QDAY 10/24/24 10/24/24 mcg (1,000 unit) capsule zinc gluconate 100 mg tablet PO DAILY 10/24/24 10/24/24 Previous Rx's ?Medication ?Instructions ?Recorded furosemide 20 mg tablet 20 mg PO BID #180 tabs 10/01/24 tamsulosin 0.4 mg capsule 0.4 mg PO DAILY #90 caps 10/22/24 atorvastatin 40 mg tablet 40 mg PO DAILY #90 tabs 11/07/24 metoprolol succinate 100 mg 100 mg PO BID #180 tabs 11/07/24 tablet,extended release 24 hr warfarin 2 mg tablet See Rx Instructions .Route .ud #90 11/07/24 tabs omeprazole 20 mg capsule,delayed 20 mg PO DAILY #90 caps 11/08/24 release warfarin 4 mg tablet See Rx Instructions PO .ud #90 tabs 11/08/24 oxybutynin chloride 15 mg 30 mg (2 x 15 mg) PO QDAY #180 tabs 11/28/24 tablet,extended release 24 hr hydrochlorothiazide 12.5 mg tablet 12.5 mg PO BID #60 tabs 12/11/24 Allergies Allergy/AdvReac Type Severity Reaction Status Date / Time azithromycin (From Zithromax AdvReac Verified 12/13/24 12:55 Z-Neftaly) [facility] Medical History Focal seizure ?R56.9 - Unspecified convulsions (ICD-10) Hematuria ?R31.9 - Hematuria, unspecified (ICD-10) Contusion of knee ?S80.00XA - Contusion of unspecified knee, initial encounter (ICD-10) Surgical History History of aortic valve replacement ?Z95.2 - Presence of prosthetic heart valve (ICD-10) Status post left hip replacement ?Z96.642 - Presence of left artificial hip joint (ICD-10) History of sinus surgery ?Z98.890 - Other specified postprocedural states (ICD-10) History of thumb surgery ?Z98.890 - Other specified postprocedural states (ICD-10) Social History What is your current living situation?: I presently have a place to live Problems where you live: no known problems Problems where you live details: none In the past 12 months, utilities in danger of being shut off: no In past 12 months, lack of transportation kept you from medical appts, meetings, work, or getting things needed for daily living: no In the past 12 mos, have been you worried that your food would run out before you had money to buy more?: never true In the past 12 mos, the food you bought just didn't last and you didn't have money to buy more?: never true Smoking Status: Never smoker Do you use any of these nicotine containing products: None Second hand tobacco smoke exposure: No How often do you have a drink containing alcohol: never How often do you have six or more drinks on one occasion: Never AUDIT-C Alcohol total score: 0 Non-prescribed substance use: denies use Caffeine: Yes How often does anyone, including family, friends and others, physically hurt you: never How often does anyone, including family, friends and others, insult or talk down to you: never How often does anyone, including family, friends and others, threaten you with harm: never How often does anyone, including family, friends and others, scream or curse at you: never service: Yes Exam Narrative: Exam Narrative: Constitutional: Appears well-developed and well-nourished. Alert. Conversant in very detail oriented historian but often jumps rapidly from symptom to symptom. Difficult to get a clear chronological set of events. Non toxic. HENT: Head: Atraumatic. Nose: Nose normal. Mouth/Throat: Oral mucosa is clear and moist. no trismus. Pharynx normal. Tonsils symmetric. No tonsillar enlargement, erythema, or exudate. Eyes: Conjunctivae normal. EOM normal. Pupils equal, round, and reactive to light. No scleral icterus. Neck: Normal range of motion. Neck supple. No tracheal deviation present. No JVD Cardiovascular: Normal rate, regular rhythm. No gallop. No friction rub. No murmur heard. Pacemaker in place. Symmetric radial artery pulses Pulmonary/Chest: Effort normal. No stridor. No respiratory distress. No wheezes. No rales. No rhonchi . No tenderness. Abdominal: Soft. Bowel sounds normal. No distension. No mass. No tenderness. No rebound. No guarding. Musculoskeletal: RUE: Normal range of motion. No tenderness. No deformity LUE: Healed shoulder incision Normal range of motion. No tenderness. No deformity. No bruising. No swelling. No deformity. Normal pain-free range of motion. RLE: Normal range of motion. No edema. No tenderness. No deformity LLE: Normal range of motion. No edema. No tenderness. No deformity Lymph: No cervical adenopathy. Neurological: Alert and oriented to person, place, and time. Normal strength. CN II-VII intact. No sensory deficit. GCS eye subscore is 4. GCS verbal subscore is 5. GCS motor subscore is 6. Normal coordination Skin: Skin is warm and dry. No rash noted. No pallor. Normal capillary refill. Psychiatric: Normal mood. Normal affect. Const: Vital Signs, click to edit/add: Vital Signs - 24 hr 12/13/24 09:14 12/13/24 09:41 12/13/24 09:45 Temperature 97.7 F Pulse Rate 71 74 Pulse Rate [Left R adial] 70 Respiratory Rate 18 26 H 25 H Blood Pressure Blood Pressure [Ri ght Upper Arm] 122/72 Pulse Oximetry 94 91 91 Oxygen Delivery Me thod Room Air 12/13/24 10:00 12/13/24 10:15 12/13/24 10:30 Temperature Pulse Rate 71 73 74 Pulse Rate [Left R adial] Respiratory Rate 11 L 21 22 Blood Pressure Blood Pressure [Ri ght Upper Arm] Pulse Oximetry 93 87 L 92 Oxygen Delivery Me thod 12/13/24 10:45 12/13/24 11:00 12/13/24 11:15 Temperature Pulse Rate 73 74 70 Pulse Rate [Left R adial] Respiratory Rate 8 L 15 7 L Blood Pressure 126/76 Blood Pressure [Ri ght Upper Arm] Pulse Oximetry 95 97 92 Oxygen Delivery Me thod Room Air 12/13/24 11:30 12/13/24 11:45 12/13/24 12:00 Temperature Pulse Rate 72 72 74 Pulse Rate [Left R adial] Respiratory Rate 5 L 16 16 Blood Pressure 142/72 H Blood Pressure [Ri ght Upper Arm] Pulse Oximetry 94 91 95 Oxygen Delivery Me thod 12/13/24 12:57 12/13/24 12:59 12/13/24 13:00 Temperature Pulse Rate 71 76 73 Pulse Rate [Left R adial] Respiratory Rate 16 14 14 Blood Pressure 141/105 H Blood Pressure [Ri ght Upper Arm] Pulse Oximetry 96 93 93 Oxygen Delivery Me thod Room Air 12/13/24 13:02 Temperature Pulse Rate 72 Pulse Rate [Left R adial] Respiratory Rate 18 Blood Pressure 145/90 H Blood Pressure [Ri ght Upper Arm] Pulse Oximetry 93 Oxygen Delivery Me thod Course Course ED Course: Discussed with forest fire equipment operator from [facility] on-call by phone. Dr. Faith Vital Signs Vital signs: Initial Vital Signs Temperature 97.7 F 12/13/24 09:14 Temperature Source Temporal Artery Scan 12/13/24 09:14 Pulse Rate 70 12/13/24 09:14 Pulse Rhythm Regular 12/13/24 09:14 Respiratory Rate 18 12/13/24 09:14 Blood Pressure 122/72 12/13/24 09:14 Blood Pressure Mean 88 12/13/24 09:14 Pulse Oximetry 94 12/13/24 09:14 Oxygen Delivery Method Room Air 12/13/24 09:14 Vital Signs Temperature 97.7 F 12/13/24 09:14 Pulse Rate 70 12/13/24 09:14 Respiratory Rate 18 12/13/24 09:14 Blood Pressure 122/72 12/13/24 09:14 Pulse Oximetry 94 12/13/24 09:14 Oxygen Delivery Method Room Air 12/13/24 09:14 Temperature 97.7 F 12/13/24 09:14 Pulse Rate 72 12/13/24 13:02 Respiratory Rate 18 12/13/24 13:02 Blood Pressure 145/90 H 12/13/24 13:02 Pulse Oximetry 93 12/13/24 13:02 Oxygen Delivery Method Room Air 12/13/24 12:59 Medical Decision Making MDM Narrative Medical decision making narrative: 79-year-old gentleman with a very complex past medical history presenting to the ER today with multiple concerns. 1. Has a known history of AFib and other arrhythmias with pacemaker in place. Complains of feeling his heart pulsing in his left arm from time to time and hearing his pulse feet in his ears from time to time over the past couple of days. With a long heart history this is never happened tell the past couple of days ago. EKG here in the ER shows that he has a functioning pacemaker with 1 PVC. Rate of 70. No signs of other cardiac arrhythmia. With pulsatile tinnitus consider possible cerebrovascular abnormality. He does have chronically renal insufficiency but GFR today is 40 which would be adequate to tolerate a contrast bolus. CT angio of the patient's head neck show no acute findings such as cervical artery dissection, cervical stenosis or significant atherosclerotic disease. No evidence for other abnormality such as dissection in the right of the cervical vessels are the aortic arch or signs of trouble in his left subclavian artery or other signs of arterial occlusion to the left arm. CT head is normal. 2. He has been experiencing left upper arm discomfort for the past few days. No history of trauma. No known injury. Pain is not worse with moving the or tender to exam that would suggest it is musculoskeletal. There is no swelling or bruising to suggest DVT and in fact his INR has been supratherapeutic for the past few days which would be protective against that condition. At this point I do not think he needs shoulder or arm x-rays. I do not think he has an upper extremity DVT ultrasound. Concern here is for possible atypical presentation of. However with 3 days of continuous pain and no exertional component, that makes it less likely. EKG shows pacer but no obvious ischemia by Sgarbossa. Troponin is undetectable. CT angio of his aortic arch and neck and head vessels is normal. No evidence for dissection. 3. He also complains that he had some or hematuria a few days ago. Urinalysis today does show hematuria on micro but no sign of infection. Abdomen/pelvis CT scan shows intrarenal stones but no clear evidence for any ureteral stone or hydronephrosis. He also has some chronic atrophy has right kidney which is apparently related to his old stones. 4. He does have a chronic cough and recently stop taking Mucinex for new having trouble with his PVCs. He did have a little bit of coughing here in the ER that was tinged with blood. INR is currently back in the therapeutic range at 2.7. Chest x-ray shows a small pleural effusion but no acute infiltrates by my read.. White count is normal. He is not febrile. No other clear evidence for pneumonia. 5. INR today is actually coming down to the therapeutic zone at 2.78. Other than tinges of blood in his sputum, no other signs of active internal or external bleeding. He did have a cough with a scant amount of bloody sputum. No signs of active bleeding from his bronchial tree or life-threatening hemoptysis. Would recommend that he work with his INR clinic to make sure he gets on the right dose. He will try to contact in this afternoon. Please not able to contact them I would have him take his 2 mg dose tonight, with a plan for him to recheck his INR tomorrow and then work with the INR clinic to make sure his INR remains stable in the therapeutic stone. 6. Patient is also concerned because his blood pressure had been pretty well controlled over recent months and years but a few weeks ago started to be a little bit higher so his PCP, Dr. Novoa put him back on blood pressure medication (hydrochlorothiazide). For the past weeks blood pressures been well controlled in the 120s-130 systolic range. For the past couple of days he has had blood pressure readings in the 150s. He is worried that his blood pressure might be too high and he is having a stroke. Discordant with Cardiology from [place] by phone. At this point they feel the ER workup is reassuring. They recommend outpatient follow-up with PCP to monitor his blood pressure and follow-up with PCP for blood pressure management Discussed the plan of care with the patient and his . They verbalized their agreement. Lab Data Labs: Lab Results 12/13/24 12/13/24 12/13/24 Range/Units 11:06 11:20 11:25 WBC 5.04 (4.50-11.00) K/uL RBC 4.80 (4.30-5.90) m/uL Hgb 15.4 (13.5-17.5) gm/dL Hct 46.8 (37.0-53.0) % MCV 98 (80-100) fL MCH 32 (26-34) pg MCHC 33 (32-36) gm/dL RDW Coeff of Mara 14.6 (11.5-15.5) % Plt Count 145 (140-440) K/uL Neut % (Auto) 46.2 (42.0-72.0) % Lymph % (Auto) 32.7 (20-44) % Banner % (Auto) 18.1 H (0.0-11.0) % Eos % (Auto) 2.8 (0.0-7.0) % Baso % (Auto) 0.2 (0.0-3.0) % Neut # (Auto) 2.33 (1.7-7.0) K/uL Lymph # (Auto) 1.65 (0.90-2.90) K/uL Banner # (Auto) 0.90 (0.00-0.90) K/UL Eos # (Auto) 0.14 (0.00-0.50) K/uL Baso # (Auto) 0.01 (0.00-0.30) K/uL Abs Immat Gran (auto) 0.00 (0.00-0.30) K/uL Imm/Tot Granulo (auto) 0.0 % INR 2.78 H (0.91-1.10) Sodium 139 (135-149) mmol/L Potassium 4.0 (3.6-5.1) mmol/L Chloride 105 (96-114) mmol/L Carbon Dioxide 28 (20-32) mmol/L Anion Gap 6 L (7-15) mEq/L BUN 30 (7-30) mg/dL Creatinine 1.7 H (0.5-1.5) mg/dL Estimated Creat Clear 35.78 Estimated GFR 40 ml/min Glucose 99 (60-115) mg/dL Lactate 1.2 (0.5-1.9) mmol/L Calcium 9.3 (8.4-10.6) mg/dL Magnesium 2.0 (1.5-2.6) mg/dL Troponin I < 0.01 (0.01-0.04) ng/mL C-Reactive Protein < 0.5 L (0.5-1.0) mg/dL NT-Pro-B Natriuret Pep 1120 H (See Note) pg/mL Urine Color Yellow (Yellow) Urine Appearance Clear (Clear) Urine pH 6.0 (5.0-8.5) Ur Specific [place] 1.010 (1.000-1.030) Urine Protein Negative (Negative) Urine Glucose (UA) Negative (Negative) Urine Ketones Negative (Negative) Urine Blood 3+ A (Negative) Urine Nitrite Negative (Negative) Urine Bilirubin Negative (Negative) Urine Urobilinogen 0.2 (0.2-1.0) Ur Leukocyte Esterase 1+ A (Negative) Urine RBC 25-50 A (0-2) Urine WBC 0-2 (0-5) Ur Squamous Epith Cells None (None-Few) Urine Bacteria None (None) POC Creatinine 1.9 H (0.6-1.3) mg/dl Imaging Data CT angiogram head and neck: Attestation: I have reviewed the pertinent imaging results. Radiologist's impression: Preliminary Report: CTA head: No proximal intracranial arterial occlusions, filling defects or high-grade stenoses. No aneurysm. CTA neck: No high-grade stenosis or filling defects are identified in the cervical carotid systems or cervical vertebral arteries. No dissection identified. CT scan - head: Attestation: I have reviewed the pertinent imaging results. Radiologist's impression: IMPRESSION: No CT evidence of an acute intracranial process. CT scan - abdomen: Attestation: I have reviewed the pertinent imaging results. Radiologist's impression: IMPRESSION: : 1. Asymmetric right renal atrophy and similar bilateral renal stone burden. The largest in the left lower pole measures up to 2.2 cm, previously 2 cm. 2. Streak artifact from left hip arthroplasty limits evaluation of the distal left ureter, however there is no definite evidence of ureteral calculi bilaterally. 3. Focal coarse calcification within the right atrial appendage may be similar to prior CT from 2018, although differences in [id number] limit direct comparison. 4. Prostatomegaly. The bladder is not well evaluated secondary to streak artifact. Chest x-ray: Attestation: I have reviewed the pertinent imaging results. My impression: Pacemaker in place. Clear lungs. Small pleural effusion ECG Data Attestation: I personally reviewed and interpreted this ECG as follows: Interpretation: Ventricular paced rhythm with mostly ventricular paced beats and 1 PVC Rate 71 WV interval not applicable Left axis deviation with wide QRS complexes from pacemaker No clear ST segment elevation or depression based on Sgarbossa criteria. He does have discordant ST segments from his QRS is which are appropriate. QTC 523 Discharge Plan Discharge Clinical Impression: Hypertension, Pulsatile tinnitus, Arm pain, left Patient Disposition: Home, Self-Care Condition: Stable Instructions: Hypertension (ED), Tinnitus (ED), Arm Pain (ED) Additional Instructions: As we discussed, so far your workup looks reassuring. I have spoken to your cardiology team from [facility]. It is very important for you to stand your regular medications including her blood pressure medication and your warfarin. Contact the INR clinic this afternoon to discuss your warfarin dose. Your INR today is back in the goal zone at 2.79. Please follow the INR Clinic Store actions about your warfarin dose. If you are unable to contact them, continue on your dose of 2 mg tonight and recheck her INR tomorrow. Continue on her blood pressure medications. Measure blood pressure once per day and keep a record of your readings. Please recheck with your primary care provider next week for blood pressure check. Please bring your blood pressure cuff with you to the doctor's office say you can see if your blood pressure cuff readings correlate with the readings from your doctors cough. If you have any worsening symptoms or other concerns such as chest pain, trouble breathing, severe headache, weakness or numbness in your arms or legs, or any problems, please come back to the ER right away. Prescriptions: No Action zinc gluconate 100 mg tablet PO DAILY cholecalciferol (vitamin D3) 25 mcg (1,000 unit) capsule 25 mcg PO QDAY Rx Instructions: unsure of strength potassium citrate 10 mEq (1,080 mg) tablet extended release 20 meq PO BID Patient Comments: TAKE 2 TABLETS BY MOUTH TWICE DAILY WITH MEALS ascorbic acid (vitamin C) 500 mg capsule 500 mg PO DAILY omega 8-tkk-osc-fish oil [Fish Oil] 60-90-500 mg capsule 1 cap PO DAILY fluticasone propionate [Flonase Allergy Relief] 50 mcg/actuation spray,suspension 1 spray intranasal DAILY PRN Rx Instructions: administer into each nostril calcium carbonate 430 mg calcium (1,000 mg) tablet,chewable 430 mg PO DAILY Rx Instructions: unsure of strength furosemide 20 mg tablet 20 mg PO BID Qty: 180 0RF tamsulosin 0.4 mg capsule 0.4 mg PO DAILY Qty: 90 3RF Patient Comments: TAKE 1 CAPSULE BY MOUTH DAILY atorvastatin 40 mg tablet 40 mg PO DAILY Qty: 90 3RF metoprolol succinate 100 mg tablet extended release 24 hr 100 mg PO BID Qty: 180 3RF warfarin 2 mg tablet See Rx Instructions .ROUTE .ud Qty: 90 3RF Rx Instructions: Take a 2 mg tablet in addition to 4 mg tablet for a total of 6 mg daily. UD; omeprazole 20 mg capsule,delayed release(DR/EC) 20 mg PO DAILY Qty: 90 3RF warfarin 4 mg tablet See Rx Instructions PO .ud Qty: 90 4RF Rx Instructions: Take a 4 mg tablet in addition to the 2 mg tablet for a total of 6 mg per day orally UD; oxybutynin chloride 15 mg tablet extended release 24hr 30 mg PO QDAY Qty: 180 3RF hydrochlorothiazide 12.5 mg tablet 12.5 mg PO BID Qty: 60 1RF Follow Up/Referrals: Daniel Molina MD [Primary Care Provider, Family Practice] Stand Alone Forms: Z2 Info Instructions
--- NOTE | 2024-12-13 11:04 | CRLHL7_ITS ---
For Patients: As a result of the Cures Act, medical imaging exams and procedure reports are released immediately into your electronic medical record. You may view this report before your referring provider. If you have questions, please contact your health care provider. INDICATION: : Left arm pain COMPARISON: None TECHNIQUE: Two view(s) of the chest FINDINGS: Left chest wall dual lead ICD with lead tips projecting over the expected position of the right atrial appendage and right ventricular apex. Cardiomegaly with postsurgical changes of aortic valve replacement. There is no focal airspace consolidation, pleural effusion, or pneumothorax. No displaced fractures. Postsurgical changes of left total reverse shoulder arthroplasty. IMPRESSION: No acute cardiopulmonary process. Dictated by Ramon Mendoza MD @ 12/13/2024 1:48:28 PM (Electronically Signed)
[2024-12-13 11:27] LABS: Lactate* 1.2 mmol/L (0.5-1.9)
[2024-12-13 11:27] LABS: Creatinine, Point-of-Care* 1.9 mg/dl (0.6-1.3)
[2024-12-13 11:28] LABS: Hematocrit 46.8 % (37.0-53.0); Hemoglobin* 15.4 gm/dL (13.5-17.5); Immature Granulocytes Abs Auto 0.00 K/uL (0.00-0.30); Immature Granulocytes Pct Auto 0.0 %; Lymphocytes Absolute Auto 1.65 K/uL (0.90-2.90); Mean Corpuscular HGB Conc 33 gm/dL (32-36); Mean Corpuscular Hemoglobin 32 pg (26-34); Mean Corpuscular Volume 98 fL (80-100); RDW Coefficient of Variation % 14.6 % (11.5-15.5); Red Blood Count 4.80 m/uL (4.30-5.90); White Blood Count* 5.04 K/uL (4.50-11.00)
[2024-12-13 11:30] LABS: Slide Review Reflex No
[2024-12-13 11:31] LABS: Appearance Urine Clear (Clear)
[2024-12-13 11:41] LABS: Chloride* 105 mmol/L (96-114); Sodium* 139 mmol/L (135-149)
[2024-12-13 11:42] LABS: Potassium* 4.0 mmol/L (3.6-5.1)
[2024-12-13 11:44] LABS: Blood Urea Nitrogen* 30 mg/dL (7-30); Creatinine* 1.7 mg/dL (0.5-1.5); Est. Creatinine Clearance* 35.78; Estimated Glomerular Filt Rate 40 ml/min
[2024-12-13 11:45] LABS: Anion Gap 6 mEq/L (7-15); Calcium* 9.3 mg/dL (8.4-10.6); Carbon Dioxide* 28 mmol/L (20-32); Glucose* 99 mg/dL (60-115); INR 2.78 (0.91-1.10); Prothrombin Time 30.5 Seconds
--- NOTE | 2024-12-13 11:54 | CRLHL7_ITS ---
For Patients: As a result of the Century Cures Act, medical imaging exams and procedure reports are released immediately into your electronic medical record. You may view this report before your referring provider. If you have questions, please contact your health care provider. DATE: 12/13/2024 CLINICAL HISTORY: Patient with pulsatile tinnitus. TECHNIQUE: Standard helical CT image acquisition through the intracranial circulation following intravenous administration of contrast material with bolus tracking. 2D and 3D MIP images for post-processing were performed and interpreted on an independent workstation and 3D images were permanently archived. COMPARISON: CT same day. FINDINGS: There is no abnormal vascularity at the skull base. There is no cerebral aneurysm or large vessel occlusion. The right internal carotid artery is normal. The right middle cerebral artery and its branches are normal. The right anterior cerebral artery and its branches are normal. The left internal carotid artery is normal. The left middle cerebral artery and its branches are normal. The left anterior cerebral artery and its branches are normal. The anterior communicating artery is well visualized and appears normal. The right vertebral artery and PICA are normal. The left vertebral artery and PICA are normal. The right vertebral artery is dominant. The basilar artery is patent and appears normal. The right posterior cerebral artery is normal. The left posterior cerebral artery is normal. The visualized venous structures are patent. IMPRESSION: Patent proximal intracranial vasculature without intracranial aneurysms or abnormal vascularity at the skull base to explain the patient`s pulsatile tinnitus. However, if the patient experiences persistent unilateral pulsatile tinnitus, then further evaluation with a diagnostic catheter angiogram should be performed. Arrangements for this to be performed by [facility]`s Neurointerventional team can be made by calling . Ananth Pereira M.D. Neurointerventional Radiologist [facility] Clarence Pager: Office/Appointments: [facility]: [email or web address] Please note that all CT scans at this facility use dose modulation, iterative reconstruction, and/or weight-based dosing when appropriate to reduce radiation dose to as low as reasonably achievable. Dictated by Ananth Pereira MD @ 12/13/2024 5:34:39 PM (Electronically Signed)
--- NOTE | 2024-12-13 11:54 | CRLHL7_ITS ---
For Patients: As a result of the Century Cures Act, medical imaging exams and procedure reports are released immediately into your electronic medical record. You may view this report before your referring provider. If you have questions, please contact your health care provider. DATE: 12/13/2024 CLINICAL HISTORY: Patient with pulsatile tinnitus. TECHNIQUE: Standard helical CT image acquisition of the neck up to the skull base after bolus intravenous contrast enhancement. 2D and 3D MIP images for post-processing were performed and interpreted on an independent workstation and 3D images were permanently archived. COMPARISON: CT same day. FINDINGS: The origins of the great vessels from the aortic arch are patent. The origin of the right vertebral artery is patent. The origin of the left vertebral artery is patent. The common carotid arteries are patent. There is no stenosis at the origin of the right internal carotid artery. There is no stenosis at the origin of the left internal carotid artery. The rest of the cervical segments of the internal carotid arteries are patent up to the skull base. The right vertebral artery is dominant. The cervical segments of the vertebral arteries are patent up to the skull base. The visualized lung apices are unremarkable. The thyroid gland is unremarkable. The soft tissues of the neck are unremarkable. There are degenerative changes in the cervical spine. IMPRESSION: Patent cervical vasculature. Please note that all CT scans at this facility use dose modulation, iterative reconstruction, and/or weight-based dosing when appropriate to reduce radiation dose to as low as reasonably achievable. Dictated by Ananth Pereira MD @ 12/13/2024 5:31:25 PM (Electronically Signed)
--- NOTE | 2024-12-13 11:54 | CRLHL7_ITS ---
For Patients: As a result of the Century Cures Act, medical imaging exams and procedure reports are released immediately into your electronic medical record. You may view this report before your referring provider. If you have questions, please contact your health care provider. INDICATION: Hematuria, history of stones TECHNIQUE: CT abdomen and pelvis without contrast, stone protocol. COMPARISON: CT abdomen pelvis 02/03/2024 and 04/16/2018 FINDINGS: Kidney/ureters: Asymmetric right renal atrophy, similar to prior. Similar bilateral renal calculi burden, the largest in the left lower pole measuring 2.2 cm, previously 2 cm. Mild perinephric stranding. No hydronephrosis. Streak artifact from left hip arthroplasty limits evaluation of the distal left ureter, however there is no definite evidence of ureteral calculi bilaterally. Liver/gallbladder/bile ducts: The liver is normal in size, shape and attenuation. Cholecystectomy. No biliary dilation Spleen/pancreas/adrenal glands: The spleen and adrenal glands are within normal limits. Fatty atrophy of the pancreas.. GI tract: The bowel is unremarkable. Prior appendectomy Abdominal wall/omentum/peritoneum: No free air or significant free fluid. No mass. New round region of hazy fat in the right pericolic gutter measuring 1.7 cm, likely an omental infarct. Fat containing umbilical hernia Lymph nodes: No lymphadenopathy. Pelvis: Prostatomegaly measuring approximately 6.6 cm in transverse dimension Lower chest: Subtle ground-glass in the right middle lobe measuring 1.3 cm, possibly focus of atelectasis. Aortic valve replacement. Moderate coronary artery calcifications and pacer lead tips terminating in the right atrial appendage and right ventricle are incompletely evaluated. Focal coarse calcification within the non dependent right atrial appendage measuring 1.2 cm may be similar to prior CT from 2018, although differences in [id number] limit direct comparison. Bones: Left hip arthroplasty IMPRESSION: : 1. Asymmetric right renal atrophy and similar bilateral renal stone burden. The largest in the left lower pole measures up to 2.2 cm, previously 2 cm. 2. Streak artifact from left hip arthroplasty limits evaluation of the distal left ureter, however there is no definite evidence of ureteral calculi bilaterally. 3. Focal coarse calcification within the right atrial appendage may be similar to prior CT from 2018, although differences in [id number] limit direct comparison. 4. Prostatomegaly. The bladder is not well evaluated secondary to streak artifact. Please note that all CT scans at this facility use dose modulation, iterative reconstruction, and/or weight-based dosing when appropriate to reduce radiation dose to as low as reasonably achievable. Dictated by Katty Fountain MD @ 12/13/2024 1:22:42 PM (Electronically Signed)
--- NOTE | 2024-12-13 11:55 | CRLHL7_ITS ---
For Patients: As a result of the Cures Act, medical imaging exams and procedure reports are released immediately into your electronic medical record. You may view this report before your referring provider. If you have questions, please contact your health care provider. INDICATION: PULSALTILE TINNITUS COMPARISON: CT head on June 02, 2023 TECHNIQUE: CT of the head without contrast. FINDINGS: Brain Parenchyma: Stable global cortical involutional changes. No acute infarct, acute intracranial hemorrhage, mass effect, or midline shift. Periventricular and supraventricular white matter hypodensity, suggestive of chronic microvascular ischemic changes. Ventricles: Stable mild ventricular enlargement, commensurate with the degree of cortical involutional changes and sulcal prominence. Extra-axial Spaces: No abnormal fluid collection. Paranasal sinuses: No significant mucosal thickening. Orbits: Unremarkable Mastoid Sinuses: Unremarkable Cranium: No acute fracture Soft tissues: Unremarkable IMPRESSION: No CT evidence of an acute intracranial process. Please note that all CT scans at this facility use dose modulation, iterative reconstruction, and/or weight-based dosing when appropriate to reduce radiation dose to as low as reasonably achievable. Dictated by Ramon Mendoza MD @ 12/13/2024 1:17:32 PM (Electronically Signed)
[2024-12-13 11:57] LABS: NT Pro B Type NatriureticPept* 1120 pg/mL (See Note)
== END 2024-12-13 15:25 | disposition home or self-care (01) ==
PROVIDERS: Emergency Provider Emergency Medicine; PCP Family Medicine
DX: I10 Essential (primary) hypertension (principal); M79.602 Pain in left arm; H93.A9 Pulsatile tinnitus, unspecified ear; I48.91 Unspecified atrial fibrillation; G47.30 Sleep apnea, unspecified; G47.00 Insomnia, unspecified; N20.0 Calculus of kidney; R05.3 Chronic cough; R31.9 Hematuria, unspecified; Z79.01 Long term (current) use of anticoagulants; Z95.0 Presence of cardiac pacemaker
CPT/HCPCS: 36415; 70450; 70496; 70498; 71046; 74176; 80048; 81001; 82565; 83605; 83735; 83880; 84484; 85025; 85610; 86140; 87086; 93005; 99284; 99285; Q9967

== ENCOUNTER 2025-01-08 13:49 | Emergency (ER) | payer MEDICARE, OTHER, SELFPAY ==
--- OUTSIDE RECORDS SUMMARY | 2025-01-08 13:52 | XMS_ITS | Encounter Summary ---
Author Organization [employer] Address [address] [place] [address] Care Team Providers Care Plant And Machinery Valuer Name Role Phone William Magallon MD Primary Care Provider [phone] Encounter Details Date Type Department Care Team (Latest Contact Info) Description 09/26/1998 Orders Only Juan Redman MD [address] [place] [address] Social History Tobacco Use Types Packs/Day Years Used Date Smoking Tobacco: Never Assessed Sex and Gender Information Value Date Recorded Sex Assigned at Male 08/09/2022 3:35 PM OXYGEN EQUIPMENT PREPARER Legal Sex Male 4:08 AM CDT Gender Identity Male 08/09/2022 3:35 PM OXYGEN EQUIPMENT PREPARER Sexual Orientation Straight 08/09/2022 3: 35 PM OXYGEN EQUIPMENT PREPARER documented as of this encounter Plan of Treatment Not on file documented as of this encounter Visit Diagnoses Not on filedocumented in this encounter Care Teams Plant And Machinery Valuer Relationship Specialty [place] [address] [place] [address] PCP - General 05/19/1996 documented as of this encounter
--- OUTSIDE RECORDS SUMMARY | 2025-01-08 13:52 | XMS_ITS | Encounter Summary ---
Author Organization [employer] Address [address] [address] Care Team Providers Care Software Engineer Web Applications Name Role Phone William Magallon MD Primary Care Provider [phone] Encounter Details Date Type Department Care Team (Latest Contact Info) Description 06/25/1996 [place] [address] [place] [address] Social History Tobacco Use Types Packs/Day Years Used Date Smoking Tobacco: Never Assessed Sex and Gender Information Value Date Recorded Sex Assigned at Male 08/09/2022 3:35 PM TYING MACHINE OPERATOR LUMBER Legal Sex Male 4:08 AM CDT Gender Identity Male 08/09/2022 3:35 PM TYING MACHINE OPERATOR LUMBER Sexual Orientation Straight 08/09/2022 3: 35 PM TYING MACHINE OPERATOR LUMBER documented as of this encounter Plan of Treatment Not on file documented as of this encounter Visit Diagnoses Not on filedocumented in this encounter Care Teams Software Engineer Web Applications Relationship Specialty [place] [address] [place] [address] PCP - General 05/19/1996 documented as of this encounter
--- OUTSIDE RECORDS SUMMARY | 2025-01-08 13:52 | XMS_ITS | Encounter Summary ---
Author Organization [employer] Address [address] [address] Care Team Providers Care Nursing Program Manager Name Role Phone William Magallon MD Primary Care Provider Encounter Details Date Type Department Care Team (Latest Contact Info) Description 01/06/2000 [place] [address] [place] [address] Social History Tobacco Use Types Packs/Day Years Used Date Smoking Tobacco: Never Assessed Sex and Gender Information Value Date Recorded Sex Assigned at Male 08/09/2022 3:35 PM WAREHOUSE HANDLER Legal Sex Male 4:08 AM CDT Gender Identity Male 08/09/2022 3:35 PM WAREHOUSE HANDLER Sexual Orientation Straight 08/09/2022 3: 35 PM WAREHOUSE HANDLER documented as of this encounter Plan of Treatment Not on file documented as of this encounter Visit Diagnoses Not on filedocumented in this encounter Care Teams Nursing Program Manager Relationship Specialty [place] [address] [place] [address] PCP - General 05/19/1996 documented as of this encounter
--- OUTSIDE RECORDS SUMMARY | 2025-01-08 13:52 | XMS_ITS | Encounter Summary ---
Author Organization [employer] Address [address] [place] [address] Care Team Providers Care Therapeutic Assistant Name Role Phone William Magallon MD Primary Care Provider [phone] Encounter Details Date Type Department Care Team (Latest Contact Info) Description 06/05/1997 [place] [address] [place] [address] Social History Tobacco Use Types Packs/Day Years Used Date Smoking Tobacco: Never Assessed Sex and Gender Information Value Date Recorded Sex Assigned at Male 08/09/2022 3:35 PM ADMITTING SUPERVISOR Legal Sex Male 4:08 AM CDT Gender Identity Male 08/09/2022 3:35 PM ADMITTING SUPERVISOR Sexual Orientation Straight 08/09/2022 3: 35 PM ADMITTING SUPERVISOR documented as of this encounter Plan of Treatment Not on file documented as of this encounter Visit Diagnoses Not on filedocumented in this encounter Care Teams Therapeutic Assistant Relationship Specialty [place] [address] [place] [address] PCP - General 05/19/1996 documented as of this encounter
--- OUTSIDE RECORDS SUMMARY | 2025-01-08 13:52 | XMS_ITS | Encounter Summary ---
Author Organization [employer] Address [address] [place] [address] Care Team Providers Care Cornice Maker Name Role Phone William Magallon MD Primary Care Provider [phone] Encounter Details Date Type Department Care Team (Latest Contact Info) Description 04/04/1995 [place] [address] [place] [address] Social History Tobacco Use Types Packs/Day Years Used Date Smoking Tobacco: Never Assessed Sex and Gender Information Value Date Recorded Sex Assigned at Male 08/09/2022 3:35 PM BIOFUELS TECHNOLOGY DEVELOPMENT MANAGER Legal Sex Male 4:08 AM CDT Gender Identity Male 08/09/2022 3:35 PM BIOFUELS TECHNOLOGY DEVELOPMENT MANAGER Sexual Orientation Straight 08/09/2022 3: 35 PM BIOFUELS TECHNOLOGY DEVELOPMENT MANAGER documented as of this encounter Plan of Treatment Not on file documented as of this encounter Visit Diagnoses Not on filedocumented in this encounter Care Teams Cornice Maker Relationship Specialty [place] [address] [place] [address] PCP - General 05/19/1996 documented as of this encounter
--- OUTSIDE RECORDS SUMMARY | 2025-01-08 13:52 | XMS_ITS | Encounter Summary ---
Author Organization [email or web address] Address [address], [place] [address] Care Team Providers Care Real Estate Rental Agent Name Role Phone William Magallon MD Primary Care Provider [phone] Encounter Details Date Type Department Care Team (Latest Contact Info) Description 08/20/1999 [place] [address] [place] [address] Social History Tobacco Use Types Packs/Day Years Used Date Smoking Tobacco: Never Assessed Sex and Gender Information Value Date Recorded Sex Assigned at Male 08/09/2022 3:35 PM NETWORK SECURITY CONSULTANT Legal Sex Male 4:08 AM CDT Gender Identity Male 08/09/2022 3:35 PM NETWORK SECURITY CONSULTANT Sexual Orientation Straight 08/09/2022 3: 35 PM NETWORK SECURITY CONSULTANT documented as of this encounter Plan of Treatment Not on file documented as of this encounter Visit Diagnoses Not on filedocumented in this encounter Care Teams Real Estate Rental Agent Relationship Specialty [place] [address] [place] [address] PCP - General 05/19/1996 documented as of this encounter
--- OUTSIDE RECORDS SUMMARY | 2025-01-08 13:52 | XMS_ITS | Clinical Summary ---
Author Organization [employer] Address [address] [place] [address] Care Team Providers Care Glass Driller Name Role Phone Marily Calvert Primary Care Provider [phone] Allergies Active Allergy Reactions Criticality Noted Date [...] on file Legal Sex Male 5:42 AM FILM FLAT INSPECTOR Gender Identity Not on file Sexual Orientation [...] Payer (Ef fective 2009-Present) Name:Sean Recio Member ID:[id number] Relation to Subscriber:Self Name:Sean Recio Subscriber ID:[id number] Payer ID:Not on file Group ID:Not on file Type:Not on file Address: ATTN: CLAIMS [address] MEDICARE SUPPLEMENT PLAN [place] [address] MEDICARE [place] ONLY Member Subscriber Plan / Payer ( fective 2018-Present) Name:Sean Recio Member ID:[id number] Relation to Subscriber:Self Name:Sean Recio Subscriber ID:[id number] Payer ID:Not on file Group ID:Not on file Type:Not on file Address: ATTN: CLAIMS [address] MEDICARE PART A [place] ONLY Advance Directives * Full Code (Latest Code Status on File) Date Activated Date Inactivated Comments 10/21/2016 11:59 AM 10/21/2016 3:09 PM * Full Code Date Activated Date Inactivated Comments 10/21/2016 11:00 AM 10/21/2016 11:59 AM Care Teams Glass Driller Relationship Specialty Start Date End Date Marily Calvert MBBS PCP - General Internal Medicine 10/08/10
--- OUTSIDE RECORDS SUMMARY | 2025-01-08 13:52 | XMS_ITS | Encounter Summary ---
Author Organization [employer] Address [address] [place] [address] Care Team Providers Care Repair Supervisor Name Role Phone William Magallon MD Primary Care Provider [phone] Encounter Details Date Type Department Care Team (Latest Contact Info) Description 07/05/1995 [place] [address] [place] [address] Social History Tobacco Use Types Packs/Day Years Used Date Smoking Tobacco: Never Assessed Sex and Gender Information Value Date Recorded Sex Assigned at Male 08/09/2022 3:35 PM SENIOR RUBY DEVELOPER Legal Sex Male 4:08 AM CDT Gender Identity Male 08/09/2022 3:35 PM SENIOR RUBY DEVELOPER Sexual Orientation Straight 08/09/2022 3: 35 PM SENIOR RUBY DEVELOPER documented as of this encounter Plan of Treatment Not on file documented as of this encounter Visit Diagnoses Not on filedocumented in this encounter Care Teams Repair Supervisor Relationship Specialty [place] [address] [place] [address] PCP - General 05/19/1996 documented as of this encounter
--- OUTSIDE RECORDS SUMMARY | 2025-01-08 13:52 | XMS_ITS | Encounter Summary ---
Author Organization [employer] Address [address] [address] Care Team Providers Care Material Reprocessing Associate Name Role Phone William Magallon MD Primary Care Provider [phone] Encounter Details Date Type Department Care Team (Latest Contact Info) Description 07/22/1997 [place] [address] [place] [address] Social History Tobacco Use Types Packs/Day Years Used Date Smoking Tobacco: Never Assessed Sex and Gender Information Value Date Recorded Sex Assigned at Male 08/09/2022 3:35 PM LABORATORY CLERK Legal Sex Male 4:08 AM CDT Gender Identity Male 08/09/2022 3:35 PM LABORATORY CLERK Sexual Orientation Straight 08/09/2022 3: 35 PM LABORATORY CLERK documented as of this encounter Plan of Treatment Not on file documented as of this encounter Visit Diagnoses Not on filedocumented in this encounter Care Teams Material Reprocessing Associate Relationship Specialty [place] [address] [place] [address] PCP - General 05/19/1996 documented as of this encounter
--- OUTSIDE RECORDS SUMMARY | 2025-01-08 13:52 | XMS_ITS | Encounter Summary ---
Author Organization [employer] [facility] Address [address] [place] [address] Care Team Providers Care Audio Visual Manager Name Role Phone William Magallon MD Primary Care Provider [phone] Encounter Details Date Type Department Care Team (Latest Contact Info) Description 04/04/1998 Orders Only Bill Rosenthal MD [address] [place] [address] Social History Tobacco Use Types Packs/Day Years Used Date Smoking Tobacco: Never Assessed Sex and Gender Information Value Date Recorded Sex Assigned at Male 08/09/2022 3:35 PM ORTHOTIC ASSISTANT Legal Sex Male 4:08 AM CDT Gender Identity Male 08/09/2022 3:35 PM ORTHOTIC ASSISTANT Sexual Orientation Straight 08/09/2022 3: 35 PM ORTHOTIC ASSISTANT documented as of this encounter Plan of Treatment Not on file documented as of this encounter Visit Diagnoses Not on filedocumented in this encounter Care Teams Audio Visual Manager Relationship Specialty [place] [address] [place] [address] PCP - General 05/19/1996 documented as of this encounter
--- OUTSIDE RECORDS SUMMARY | 2025-01-08 13:52 | XMS_ITS | Encounter Summary ---
Author Organization [employer] Address [address] [place] [address] Care Team Providers Care Superintendent Fish Hatchery Name Role Phone William Magallon MD Primary Care Provider [phone] Encounter Details Date Type Department Care Team (Latest Contact Info) Description 06/04/1996 [place] [address] [place] [address] Social History Tobacco Use Types Packs/Day Years Used Date Smoking Tobacco: Never Assessed Sex and Gender Information Value Date Recorded Sex Assigned at Male 08/09/2022 3:35 PM FRANCHISE SALES REPRESENTATIVE Legal Sex Male 4:08 AM CDT Gender Identity Male 08/09/2022 3:35 PM FRANCHISE SALES REPRESENTATIVE Sexual Orientation Straight 08/09/2022 3: 35 PM FRANCHISE SALES REPRESENTATIVE documented as of this encounter Plan of Treatment Not on file documented as of this encounter Visit Diagnoses Not on filedocumented in this encounter Care Teams Superintendent Fish Hatchery Relationship Specialty [place] [address] [place] [address] PCP - General 05/19/1996 documented as of this encounter
--- OUTSIDE RECORDS SUMMARY | 2025-01-08 13:52 | XMS_ITS | Encounter Summary ---
Author Organization [employer] Address [address], [place] [address] Care Team Providers Care Heddle Machine Operator Name Role Phone William Magallon MD Primary Care Provider [phone] Encounter Details Date Type Department Care Team (Latest Contact Info) Description 11/04/1994 Orders Only Steven Vazquez Social History Tobacco Use Types Packs/Day Years Used Date Smoking Tobacco: Never Assessed Sex and Gender Information Value Date Recorded Sex Assigned at Male 08/09/2022 3:35 PM SALESPERSON MEATS Legal Sex Male 4:08 AM CDT Gender Identity Male 08/09/2022 3:35 PM SALESPERSON MEATS Sexual Orientation Straight 08/09/2022 3: 35 PM SALESPERSON MEATS documented as of this encounter Plan of Treatment Not on file documented as of this encounter Visit Diagnoses Not on filedocumented in this encounter Care Teams Heddle Machine Operator Relationship Specialty [place] [address] [place] [address] PCP - General 05/19/1996 documented as of this encounter
--- OUTSIDE RECORDS SUMMARY | 2025-01-08 13:52 | XMS_ITS | Encounter Summary ---
Author Organization [facility] Address [address], [place] [address] Care Team Providers Care Miner Name Role Phone William Magallon MD Primary Care Provider [phone] Encounter Details Date Type Department Care Team (Latest Contact Info) Description 12/13/1997 Orders Only Nahum Ernandez, GEOVANYS Social History Tobacco Use Types Packs/Day Years Used Date Smoking Tobacco: Never Assessed Sex and Gender Information Value Date Recorded Sex Assigned at Male 08/09/2022 3:35 PM DOUGHNUT MACHINE OPERATOR Legal Sex Male 4:08 AM CDT Gender Identity Male 08/09/2022 3:35 PM DOUGHNUT MACHINE OPERATOR Sexual Orientation Straight 08/09/2022 3: 35 PM DOUGHNUT MACHINE OPERATOR documented as of this encounter Plan of Treatment Not on file documented as of this encounter Visit Diagnoses Not on filedocumented in this encounter Care Teams Miner Relationship Specialty [place] [address] [place] [address] PCP - General 05/19/1996 documented as of this encounter
--- OUTSIDE RECORDS SUMMARY | 2025-01-08 13:52 | XMS_ITS | Encounter Summary ---
Author Organization [employer] Address [address] [address] Care Team Providers Care Bridal Service Sales And Management Name Role Phone William Magallon MD Primary Care Provider [phone] Encounter Details Date Type Department Care Team (Latest Contact Info) Description 07/01/1997 [place] [address] [place] [address] Social History Tobacco Use Types Packs/Day Years Used Date Smoking Tobacco: Never Assessed Sex and Gender Information Value Date Recorded Sex Assigned at Male 08/09/2022 3:35 PM INSPECTOR WIRE PRODUCTS Legal Sex Male 4:08 AM CDT Gender Identity Male 08/09/2022 3:35 PM INSPECTOR WIRE PRODUCTS Sexual Orientation Straight 08/09/2022 3: 35 PM INSPECTOR WIRE PRODUCTS documented as of this encounter Plan of Treatment Not on file documented as of this encounter Visit Diagnoses Not on filedocumented in this encounter Care Teams Bridal Service Sales And Management Relationship Specialty [place] [address] [place] [address] PCP - General 05/19/1996 documented as of this encounter
--- OUTSIDE RECORDS SUMMARY | 2025-01-08 13:52 | XMS_ITS | Clinical Summary ---
Author Organization [facility] Address [address] [place] [address] Care Team Providers Care Remedial Teacher Name Role Phone William Magallon MD Primary Care Provider Source Comments You are receiving this document [...] for each transition of care or referral. OnBeep Allergies Active Allergy Reactions Criticality Noted Date [...] Overview (05/12/2018): Hypertension (HTN) Essential Benign Other penitentiary (current) drug therapy 6 Abnormal liver scan 03/07/2015 Adenomatous polyp of colon 03/07/2015 Anisocoria 03/07/2015 Aortic valve disorder 03/07/2015 Carpal tunnel syndrome 03/07/2015 Congenital insufficiency of aortic valve 015 Congestive heart failure 03/07/2015 Overview (05/12/2018): CHF Hypertension 03/07/2015 Overview (05/12/2018): HTN [Hypertension] Gastroesophageal reflux disease 03/07/2015 Insomnia 03/07/2015 longterm current use of anticoagulant 5 Mitral valve [...] Sex Assigned at Male 08/09/2022 3:35 PM PAVER OPERATOR Legal Sex Male 4:08 AM CDT Gender Identity Male 08/09/2022 3:35 PM PAVER OPERATOR Sexual Orientation Straight 08/09/2022 3: 35 PM PAVER OPERATOR Last Filed Vital Signs Vital Sign Reading Time Taken Comments Blood Pressure 150/73 05/12/2018 12:19 PM PAVER OPERATOR Pulse 62 05/08/2018 10:24 AM PAVER OPERATOR Temperature - - Respiratory Rate - - [...] TOTAL AND HDL Routine 08/21/1997 10:38 AM PAVER OPERATOR from Last 3 Months or Most Recently Relevant to Health Maintenance Results * CHOLESTEROL, TOTAL AND HDL (08/21/1997 10:38 AM PAVER OPERATOR) Cholesterol 187 <240 mg/dl [facility] HDL 43 >35 mg/dl [facility] 08/21/1997 10:3 8 AM PAVER OPERATOR 08/21/1997 10:39 AM PAVER OPERATOR us William Magallon MD LAB_1 Final Result [facility] [address] [id number] from Last 3 Months or Most Recently Relevant to Health Maintenance Insurance [employer] Care Teams Remedial Teacher Relationship Specialty [place] [address] [place] [address] PCP - General 05/19/1996
--- OUTSIDE RECORDS SUMMARY | 2025-01-08 13:52 | XMS_ITS | Encounter Summary ---
Author Organization [employer] Address [address] [address] Care Team Providers Care All Source Intelligence Name Role Phone William Magallon MD Primary Care Provider [phone] Encounter Details Date Type Department Care Team (Latest Contact Info) Description 01/15/1999 Orders Only Nahum Ernandez, GEOVANYS Social History Tobacco Use Types Packs/Day Years Used Date Smoking Tobacco: Never Assessed Sex and Gender Information Value Date Recorded Sex Assigned at Male 08/09/2022 3:35 PM NEWSPAPER SUBSCRIPTION SOLICITOR Legal Sex Male 4:08 AM CDT Gender Identity Male 08/09/2022 3:35 PM NEWSPAPER SUBSCRIPTION SOLICITOR Sexual Orientation Straight 08/09/2022 3: 35 PM NEWSPAPER SUBSCRIPTION SOLICITOR documented as of this encounter Plan of Treatment Not on file documented as of this encounter Visit Diagnoses Not on filedocumented in this encounter Care Teams All Source Intelligence Relationship Specialty [place] [address] [place] [address] PCP - General 05/19/1996 documented as of this encounter
[2025-01-08 13:59] VITALS: BP 123/79; PULSE 70; RESP 18; TEMP 36; O2SAT 97; BMI 36.4
--- NOTE | 2025-01-08 14:40 | CRLHL7_ITS ---
For Patients: As a result of the Century Cures Act, medical imaging exams and procedure reports are released immediately into your electronic medical record. You may view this report before your referring provider. If you have questions, please contact your health care provider. INDICATION: Hematuria.HEMATURIA HX OF STONES. LBP TECHNIQUE: CT abdomen and pelvis urogram without and with 120 cc Isovue 370 IV contrast. Contrast images were obtained in the nephrographic and delayed phases. COMPARISON: Dating back to 2018. FINDINGS: Lower chest: Motion. Cardiomegaly. ICD/pacer. Aortic valve prosthesis. Atherosclerotic and coronary artery calcifications. ABDOMEN: Liver: Normal enhancement. No focal suspicious hepatic lesions. Gallbladder and biliary: Cholecystectomy. Normal caliber bile ducts. Spleen: Normal size and enhancement. Pancreas: Normal enhancement without peripancreatic inflammatory changes or ductal dilatation. Adrenal glands: Normal adrenal glands. Kidneys and ureters: Normal enhancement. No hydroureteronephrosis. Bilateral nonobstructing renal stones measuring up to 15 millimeters in the inferior pole left kidney. Relatively atrophic right kidney, similar to prior exam. Suboptimal opacification of the right renal collecting system. Subtle mild long segment urothelial wall circumferential thickening of the proximal right renal collecting system.. GI tract: Stomach is relatively decompressed. Small duodenal diverticula. Normal caliber small and large bowel loops. Appendix is not definitively visualized. Vascular structures: Normal caliber aorta with atherosclerotic calcifications. Lymph nodes: No lymphadenopathy in the abdomen or pelvis by size criteria. Peritoneum: No free air, free fluid, or focal drainable fluid collection. PELVIS: Genitourinary system: Suboptimal opacification of the urinary bladder. Tiny filling defects within the dependent portion of the urinary bladder near the bladder dome. Prostatomegaly. SKELETAL STRUCTURES AND SOFT TISSUES: Small fat containing umbilical hernia. Sternotomy wires. Left hip arthroplasty. Lumbar spondylosis. Trace anterolisthesis of L5 on S1. IMPRESSION: 1. Bilateral nonobstructing renal stones measuring up to 15 millimeters in the inferior pole left kidney. Relatively atrophic right kidney, similar to prior exam. Suboptimal opacification of the right renal collecting system. Subtle mild long segment urothelial wall circumferential thickening of the proximal right renal collecting system, incompletely characterized however favoring sequela of chronic reflux. 2. Suboptimal opacification of the urinary bladder. Tiny filling defects within the dependent portion of the urinary bladder near the bladder dome. Incompletely characterized on this exam however differential considerations include layering debris, or tiny soft tissue focus. Consider correlation with nonemergent urologic consultation and potential direct visualization. Please note that all CT scans at this facility use dose modulation, iterative reconstruction, and/or weight-based dosing when appropriate to reduce radiation dose to as low as reasonably achievable. Dictated by Glenroy Lyle MD @ 01/08/2025 3:51:52 PM (Electronically Signed)
[2025-01-08 15:08] LABS: Hematocrit 50.7 % (37.0-53.0); Hemoglobin* 17.2 gm/dL (13.5-17.5); Immature Granulocytes Abs Auto 0.01 K/uL (0.00-0.30); Immature Granulocytes Pct Auto 0.1 %; Mean Corpuscular HGB Conc 34 gm/dL (32-36); Mean Corpuscular Hemoglobin 32 pg (26-34); Mean Corpuscular Volume 93 fL (80-100); RDW Coefficient of Variation % 13.6 % (11.5-15.5); Red Blood Count 5.43 m/uL (4.30-5.90); White Blood Count* 6.71 K/uL (4.50-11.00)
[2025-01-08 15:10] LABS: Lymphocytes Absolute Auto 0.80 K/uL (0.90-2.90); Slide Review Reflex No
--- NOTE | 2025-01-08 15:14 | ED.MALEGU ---
HPI - Male Genitourinary General Date Seen: 01/08/25 Chief complaint: Urogenital Problems, Male Stated complaint: Blood in urine Time Seen by Provider: 01/08/25 14:23 Source: patient Mode of arrival: ambulatory Limitations: no limitations History of Present Illness HPI Narrative: Patient is an 79-year-old male presenting to the emergency department for hematuria. States his hematuria has been going on for several years. First seem to have started when he initially had a large 1 cm kidney stone 2 years ago. States he gets multiple kidney stones and also another large kidney stone requiring a procedure for removal about a year ago. Has had several small a kidney stone since then that he is able to pass on his own. Thinks his most recent when he passed was about a week ago. States he has been starting to have increased amount of hematuria and is now passing some clots. Seems to specifically gotten worse after he was started on prednisone from urgent care this past for eustachian tube dysfunction. About 2 weeks ago he was placed on antibiotics for bronchitis. Recently checked his INR is elevated to 4.5 so his Coumadin dose was adjusted he states his INR is back to normal. With increased hematuria he did call his urologist and was told to follow-up with his primary care provider. When he called his primary care provider he was told to come to the emergency department. Denies any associated abdominal pain. States he feels again might have very mild left low back pain but states he personally when not call it pain and it is more just sore. Denies fevers, chills, chest pain, shortness of breath, weakness, lightheadedness, dizziness, abdominal pain, dysuria. States he is urinating normally. Does not feel like there is any retention. Related Data Home Medications ?Medication ?Instructions ?Recorded ?Confirmed ascorbic acid (vitamin C) 500 mg 500 mg PO DAILY 06/24/22 01/04/25 capsule fluticasone propionate 50 1 spray intranasal DAILY PRN 06/24/22 01/04/25 mcg/actuation nasal spray,suspension (Flonase Allergy Relief) omega 6-kos-qnn-fish oil 60 mg-90 1 cap PO DAILY 06/24/22 01/04/25 mg-500 mg capsule (Fish Oil) potassium citrate 10 mEq (1,080 20 meq PO BID 06/24/22 01/04/25 mg) tablet,extended release calcium carbonate 430 mg PO DAILY 10/24/24 01/04/25 cholecalciferol (vitamin D3) 25 25 mcg PO QDAY 10/24/24 01/04/25 mcg (1,000 unit) capsule zinc gluconate 100 mg tablet PO DAILY 10/24/24 01/04/25 amiodarone 100 mg tablet 100 mg PO QDAY 01/01/25 01/04/25 hydrocortisone 2.5 % topical cream applic topical 01/01/25 01/04/25 ketoconazole 2 % topical cream applic topical DAILY 01/01/25 01/04/25 triamcinolone acetonide 0.1 % 1 applic topical BID-TID 01/01/25 01/04/25 topical cream Previous Rx's ?Medication ?Instructions ?Recorded tamsulosin 0.4 mg capsule 0.4 mg PO DAILY #90 caps 10/22/24 atorvastatin 40 mg tablet 40 mg PO DAILY #90 tabs 11/07/24 metoprolol succinate 100 mg 100 mg PO BID #180 tabs 11/07/24 tablet,extended release 24 hr warfarin 2 mg tablet See Rx Instructions .Route .ud #90 11/07/24 tabs omeprazole 20 mg capsule,delayed 20 mg PO DAILY #90 caps 11/08/24 release warfarin 4 mg tablet See Rx Instructions PO .ud #90 tabs 11/08/24 oxybutynin chloride 15 mg 30 mg (2 x 15 mg) PO QDAY #180 tabs 11/28/24 tablet,extended release 24 hr hydrochlorothiazide 12.5 mg tablet 12.5 mg PO BID #60 tabs 12/11/24 doxycycline hyclate 100 mg tablet 100 mg PO BID #20 tabs 01/01/25 furosemide 20 mg tablet 20 mg PO BID #180 tabs 01/01/25 prednisone 20 mg tablet 40 mg (2 x 20 mg) PO QDAY 5 days 01/04/25 #10 tabs cefpodoxime 200 mg tablet 200 mg PO BID #10 tabs 01/08/25 Allergies Allergy/AdvReac Type Severity Reaction Status Date / Time azithromycin (From Zithromax AdvReac shortness Verified 01/08/25 15:23 Z-Neftaly) of breath/weakness Review of Systems Status of ROS: Reports: 10 or more systems reviewed and unremarkable except as noted in History and below [facility] Medical History Focal seizure ?R56.9 - Unspecified convulsions (ICD-10) Hematuria ?R31.9 - Hematuria, unspecified (ICD-10) Contusion of knee ?S80.00XA - Contusion of unspecified knee, initial encounter (ICD-10) Surgical History History of aortic valve replacement ?Z95.2 - Presence of prosthetic heart valve (ICD-10) Status post left hip replacement ?Z96.642 - Presence of left artificial hip joint (ICD-10) History of sinus surgery ?Z98.890 - Other specified postprocedural states (ICD-10) History of thumb surgery ?Z98.890 - Other specified postprocedural states (ICD-10) Social History What is your current living situation?: I presently have a place to live Problems where you live: no known problems Problems where you live details: none In the past 12 months, utilities in danger of being shut off: no In past 12 months, lack of transportation kept you from medical appts, meetings, work, or getting things needed for daily living: no In the past 12 mos, have been you worried that your food would run out before you had money to buy more?: never true In the past 12 mos, the food you bought just didn't last and you didn't have money to buy more?: never true Smoking Status: Never smoker Do you use any of these nicotine containing products: None Second hand tobacco smoke exposure: No How often do you have a drink containing alcohol: never How often do you have six or more drinks on one occasion: Never AUDIT-C Alcohol total score: 0 Non-prescribed substance use: denies use Caffeine: Yes How often does anyone, including family, friends and others, physically hurt you: never How often does anyone, including family, friends and others, insult or talk down to you: never How often does anyone, including family, friends and others, threaten you with harm: never How often does anyone, including family, friends and others, scream or curse at you: never service: Yes Exam Narrative: Exam Narrative: Const: Well-nourished, Well-developed, in no distress Eyes: PERRL, no conjunctival injection, and symmetrical lids HENT: Atraumatic external nose and ears. Moist mucous membranes. Neck: Symmetric, trachea midline, No thyromegaly. CVS: RRR, No murmurs or gallops. Peripheral pulses 2+ and equal in all extremities RESP: Unlabored respiratory effort. Clear to auscultation bilaterally. GI: Nontender/Nondistended, No rebound or guarding. MSK:Extremities w/o deformity, Normal Active ROM Skin: Warm, Dry. No rashes or lesions. Neuro: Normal Muscle tone, No focal neurological deficits. Psych: Awake, Alert, & Oriented x3. Appropriate mood and affect. Const: Vital Signs, click to edit/add: Vital Signs - 24 hr 01/08/25 13:59 Temperature 96.8 F L Pulse Rate [Pulse Oximeter] 70 Respiratory Rate 18 Blood Pressure [Ri ght Upper Arm] 123/79 Pulse Oximetry 97 Oxygen Delivery Me thod Room Air Course Vital Signs Vital signs: Initial Vital Signs Temperature 96.8 F L 01/08/25 13:59 Temperature Source Temporal Artery Scan 01/08/25 13:59 Pulse Rate 70 01/08/25 13:59 Respiratory Rate 18 01/08/25 13:59 Blood Pressure 123/79 01/08/25 13:59 Blood Pressure Mean 93 01/08/25 13:59 Blood Pressure Position Sitting 01/08/25 13:59 Pulse Oximetry 97 01/08/25 13:59 Oxygen Delivery Method Room Air 01/08/25 13:59 Vital Signs Temperature 96.8 F L 01/08/25 13:59 Pulse Rate 70 01/08/25 13:59 Respiratory Rate 18 01/08/25 13:59 Blood Pressure 123/79 01/08/25 13:59 Pulse Oximetry 97 01/08/25 13:59 Oxygen Delivery Method Room Air 01/08/25 13:59 Temperature 96.8 F L 01/08/25 13:59 Pulse Rate 70 01/08/25 13:59 Respiratory Rate 18 01/08/25 13:59 Blood Pressure 123/79 01/08/25 13:59 Pulse Oximetry 97 01/08/25 13:59 Oxygen Delivery Method Room Air 01/08/25 13:59 Medications Administered Medications: Discontinued Medications Generic Name Dose Route Start Last Admin Trade Name Kacy PRN Reason Stop Dose Admin Potassium Bicarbonate 50 meq 01/08/25 15:34 01/08/25 15:46 Potassium Bicarb 25 Meq Effervescent Tab PO 01/08/25 15:35 50 meq ONCE ONE Administration MDM - Male Genitourinary MDM Narrative Medical decision making narrative: Patient is an 79-year-old male presenting for hematuria. Does not having any other symptoms. I will do CT scan to look for possible source of the hematuria. Will also do a CBC, BMP, INR, urinalysis. Patient's urine does appear to show a UTI and blood in his urine. Rest of his lab work shows no concerning abnormalities other than slightly low potassium and an elevated INR. This was replenished. Creatinine is roughly around his baseline. CT scan of the abdomen pelvis shows some suboptimal filling of the renal collecting system but no clear obvious concerning abnormalities. Does recommend nonemergent follow-up with Urology. I will start the patient on antibiotic for his UTI. The elevated INR along with the UTI is probably contributing to his hematuria. I informed him to follow up outpatient with either his primary care provider or Urology. He is agreeable to this plan. Of note patient states he was recently started on prednisone and was most take 40 mg for 10 days. I did look at the prescription and is supposed to be 40 mg for only 5 days. He states today was day 5. I told him to not take any further prednisone. Lab Data Labs: Lab Results 01/08/25 01/08/25 Range/Units 15:05 15:19 WBC 6.71 (4.50-11.00) K/uL RBC 5.43 (4.30-5.90) m/uL Hgb 17.2 (13.5-17.5) gm/dL Hct 50.7 (37.0-53.0) % MCV 93 (80-100) fL MCH 32 (26-34) pg MCHC 34 (32-36) gm/dL RDW Coeff of Mara 13.6 (11.5-15.5) % Plt Count 137 L (140-440) K/uL Neut % (Auto) 86.3 H (42.0-72.0) % Lymph % (Auto) 11.6 L (20-44) % Amador % (Auto) 1.9 (0.0-11.0) % Eos % (Auto) 0.1 (0.0-7.0) % Baso % (Auto) 0.0 (0.0-3.0) % Neut # (Auto) 5.80 (1.7-7.0) K/uL Lymph # (Auto) 0.80 L (0.90-2.90) K/uL Amador # (Auto) 0.10 (0.00-0.90) K/UL Eos # (Auto) 0.01 (0.00-0.50) K/uL Baso # (Auto) 0.00 (0.00-0.30) K/uL Abs Immat Gran (auto) 0.01 (0.00-0.30) K/uL Imm/Tot Granulo (auto) 0.1 % INR 3.86 H (0.91-1.10) Sodium 135 (135-149) mmol/L Potassium 3.0 L (3.6-5.1) mmol/L Chloride 94 L (96-114) mmol/L Carbon Dioxide 33 H (20-32) mmol/L Anion Gap 8 (7-15) mEq/L BUN 70 H (7-30) mg/dL Creatinine 2.1 H (0.5-1.5) mg/dL Estimated Creat Clear 28.97 Estimated GFR 31 ml/min Glucose 141 H (60-115) mg/dL Calcium 10.1 (8.4-10.6) mg/dL Urine Color Red A (Yellow) Urine Appearance Cloudy A (Clear) Urine pH 7.0 (5.0-8.5) Ur Specific Pullman 1.015 (1.000-1.030) Urine Protein 1+ A (Negative) Urine Glucose (UA) Negative (Negative) Urine Ketones Negative (Negative) Urine Blood 3+ A (Negative) Urine Nitrite Negative (Negative) Urine Bilirubin Negative (Negative) Urine Urobilinogen 0.2 (0.2-1.0) Ur Leukocyte Esterase 3+ A (Negative) Urine RBC 50-100 A (0-2) Urine WBC 10-25 A (0-5) Ur Squamous Epith Cells None (None-Few) Urine Bacteria Few A (None) Urine Starch Moderate A (None) Imaging Data CT scan abdomen pelvis: Radiologist's impression: 1. Bilateral nonobstructing renal stones measuring up to 15 millimeters in the inferior pole left kidney. Relatively atrophic right kidney, similar to prior exam. Suboptimal opacification of the right renal collecting system. Subtle mild long segment urothelial wall circumferential thickening of the proximal right renal collecting system, incompletely characterized however favoring sequela of chronic reflux. 2. Suboptimal opacification of the urinary bladder. Tiny filling defects within the dependent portion of the urinary bladder near the bladder dome. Incompletely characterized on this exam however differential considerations include layering debris, or tiny soft tissue focus. Consider correlation with nonemergent urologic consultation and potential direct visualization. Please note that all CT scans at this facility use dose modulation, iterative reconstruction, and/or weight-based dosing when appropriate to reduce radiation dose to as low as reasonably achievable. Dictated by Glenroy Lyle MD @ 01/08/2025 3:51:52 PM Discharge Plan Discharge Clinical Impression: Urinary tract infection Qualifiers: Urinary tract infection type: site unspecified Hematuria presence: with hematuria Qualified Code(s): N39.0 - Urinary tract infection, site not specified Patient Disposition: Home, Self-Care Condition: Stable Instructions: Urinary Tract Infection in Men (ED) Additional Instructions: I believe your UTI and elevated INR are contributing to your blood in the urine. Take antibiotics as prescribed and speak to your INR clinic about adjusting your warfarin. I do recommend close follow-up with either primary care or Urology. Also no to previous prednisone prescription is supposed to be for 40 mg and a total 5 days. Please stop taking the prednisone now as it has been 5 days Prescriptions: New cefpodoxime 200 mg tablet 200 mg PO BID Qty: 10 0RF Rx Instructions: must administer with a meal/food No Action zinc gluconate 100 mg tablet PO DAILY cholecalciferol (vitamin D3) 25 mcg (1,000 unit) capsule 25 mcg PO QDAY Rx Instructions: unsure of strength triamcinolone acetonide 0.1 % cream 1 applic topical BID-TID hydrocortisone 2.5 % cream topical ketoconazole 2 % cream topical DAILY amiodarone 100 mg tablet 100 mg PO QDAY doxycycline hyclate 100 mg tablet 100 mg PO BID Qty: 20 0RF prednisone 20 mg tablet 40 mg PO QDAY 5 Days Qty: 10 0RF potassium citrate 10 mEq (1,080 mg) tablet extended release 20 meq PO BID Patient Comments: TAKE 2 TABLETS BY MOUTH TWICE DAILY WITH MEALS ascorbic acid (vitamin C) 500 mg capsule 500 mg PO DAILY omega 5-bbg-cur-fish oil [Fish Oil] 60-90-500 mg capsule 1 cap PO DAILY fluticasone propionate [Flonase Allergy Relief] 50 mcg/actuation spray,suspension 1 spray intranasal DAILY PRN Rx Instructions: administer into each nostril calcium carbonate 430 mg calcium (1,000 mg) tablet,chewable 430 mg PO DAILY Rx Instructions: unsure of strength tamsulosin 0.4 mg capsule 0.4 mg PO DAILY Qty: 90 3RF Patient Comments: TAKE 1 CAPSULE BY MOUTH DAILY atorvastatin 40 mg tablet 40 mg PO DAILY Qty: 90 3RF metoprolol succinate 100 mg tablet extended release 24 hr 100 mg PO BID Qty: 180 3RF warfarin 2 mg tablet See Rx Instructions .ROUTE .ud Qty: 90 3RF Rx Instructions: Take a 2 mg tablet in addition to 4 mg tablet for a total of 6 mg daily. UD; omeprazole 20 mg capsule,delayed release(DR/EC) 20 mg PO DAILY Qty: 90 3RF warfarin 4 mg tablet See Rx Instructions PO .ud Qty: 90 4RF Rx Instructions: Take a 4 mg tablet in addition to the 2 mg tablet for a total of 6 mg per day orally UD; oxybutynin chloride 15 mg tablet extended release 24hr 30 mg PO QDAY Qty: 180 3RF hydrochlorothiazide 12.5 mg tablet 12.5 mg PO BID Qty: 60 1RF furosemide 20 mg tablet 20 mg PO BID Qty: 180 3RF Follow Up/Referrals: Daniel Molina MD [Primary Care Provider, Family Practice] Stand Alone Forms: [facility] Info Instructions
[2025-01-08 15:28] LABS: Chloride* 94 mmol/L (96-114); Potassium* 3.0 mmol/L (3.6-5.1); Sodium* 135 mmol/L (135-149)
[2025-01-08 15:31] LABS: Anion Gap 8 mEq/L (7-15); Blood Urea Nitrogen* 70 mg/dL (7-30); Carbon Dioxide* 33 mmol/L (20-32); Creatinine* 2.1 mg/dL (0.5-1.5); Est. Creatinine Clearance* 28.97; Estimated Glomerular Filt Rate 31 ml/min; Glucose* 141 mg/dL (60-115); INR 3.86 (0.91-1.10); Prothrombin Time 39.2 Seconds
[2025-01-08 15:32] LABS: Calcium* 10.1 mg/dL (8.4-10.6)
[2025-01-08] MEDS: POTASSIUM BICARB 25 MEQ EFFERVESCENT TAB 50 MEQ PO (15:46)
[2025-01-08 15:48] LABS: Appearance Urine Cloudy (Clear)
[2025-01-08 16:04] LABS: Starch Urine Moderate
== END 2025-01-08 17:07 | disposition home or self-care (01) ==
PROVIDERS: Emergency Provider Student in an Organized Health Care Education/Training Program; PCP Family Medicine
DX: N39.0 Urinary tract infection, site not specified (principal)
CPT/HCPCS: 36415; 74178; 80048; 81001; 85025; 85610; 87086; 99284; A9270; Q9967